=== PATIENT | male | born 1945 | race Caucasian/White ===

== ENCOUNTER 2020-08-11 07:51 | Outpatient (REF) | payer MEDICARE, SELFPAY ==
[2020-08-11 08:50] LABS: Basophils Absolute Auto 0.1 X10*3/uL (0.0-0.2); Eosinophils Absolute Auto 0.5 X10*3/uL (0.0-0.4); Eosinophils Percent Auto 7.6 % (0-4); Hematocrit 46.2 % (42-52); Hemoglobin 15.3 g/dl (14.0-18.0); Imm Gran Abs Auto 0.02 X10*3/uL (0.00-0.03); Imm Gran Pct Auto 0.3 % (0.0-0.4); Lymphocytes Absolute Auto 1.8 X10*3/uL (1.2-4.9); Lymphocytes Percent Auto 26.5 % (20-40); MANUAL DIFF FLAG NO; Mean Corpuscular HGB Conc 33.1 g/dl (31.0-36.0); Mean Corpuscular Hemoglobin 31.5 pg (27.0-33.0); Mean Corpuscular Volume 95.3 fL (80-98); Mean Platelet Volume 8.1 fL (9.4-12.4); Monocytes Absolute Auto 0.5 X10*3/uL (0.1-1.2); Monocytes Percent Auto 7.6 % (2-11); Platelet Count 273 X10*3/uL (160-400); Red Blood Count 4.85 X10*6/uL (4.60-5.80)
[2020-08-11 09:22] LABS: Alanine Aminotransferase 22 U/L (0-40); Albumin Level 3.7 g/dL (3.5-5.0); Alkaline Phosphatase 58 U/L (39-117); Anion Gap 14 (12-20); Aspartate Amino Transferase 22 U/L (5-37); Bilirubin Total 0.6 mg/dL (0.0-1.0); Blood Urea Nitrogen 22 mg/dL (9-16); Calcium 8.7 mg/dL (8.4-10.2); Carbon Dioxide 28 mmol/L (22-29); Chloride 104 mmol/L (96-108); Cholesterol 181 mg/dL; Estimated Glomerular Filt Rate > 60; Glucose Random 95 mg/dL (60-115); HDL Cholesterol 48 mg/dL; LDL Cholesterol Calculated 119 mg/dl; Potassium 4.3 mmol/l (3.3-5.1); Sodium 142 mmol/L (135-145); Total Protein 7.2 g/dL (6.5-8.0); Triglycerides 72 mg/dL
[2020-08-11 09:44] LABS: Free T4 (Free Thyroxine) 1.27 ng/dL (0.71-1.85); T4 Thyroxine 9.3 ug/dL (4.5-12.0); Thyroid Stimulating Hormone 3.36 uIU/mL (0.32-4.0)
[2020-08-11 09:50] LABS: Folate 12.2 ng/mL (> or = 4.0); Vitamin B12 219 pg/mL (200-900)
== END 2020-08-11 07:52 | disposition home or self-care (01) ==
LOC: HO.LAB 07:51
PROVIDERS: Absent Provider Internal Medicine Endocrinology, Diabetes & Metabolism; PCP Internal Medicine; Visit Provider Internal Medicine
DX: I10 Essential (primary) hypertension (principal); E03.9 Hypothyroidism, unspecified; E03.8 Other specified hypothyroidism; Z85.038 Personal history of other malignant neoplasm of large intestine; Z72.0 Tobacco use
CPT/HCPCS: 36415; 80053; 80061; 82607; 82746; 84436; 84439; 84443; 85025

== ENCOUNTER → 2020-08-17 07:36 | Outpatient (BNVA) | payer MEDICARE, SELFPAY | PROVIDERS: PCP Internal Medicine; Visit Provider Internal Medicine Endocrinology, Diabetes & Metabolism | DX: Z76.89 Persons encountering health services in other specified circumstances (principal) | CPT/HCPCS: Q3014 ==

== ENCOUNTER 2020-09-25 07:42 | Emergency (ER) | payer MEDICARE, SELFPAY ==
--- NOTE | ~2020-09-25 | XR_ITS ---
EXAMINATION: XR FOOT, RIGHT CLINICAL INFORMATION: Pain COMPARISON: None TECHNIQUE: AP, lateral, and oblique views of the right foot. FINDINGS: Bone alignment is normal. No fracture or dislocation is seen. There is mild arthritis of the first MTP joint with joint space narrowing. The joint spaces are otherwise normal. There is a small calcaneal spur at the Achilles tendon insertion. XR/XR foot RT min 3V IMPRESSION: Mild degenerative change at the first MTP joint. Small calcaneal spur at the Achilles tendon insertion.
[2020-09-25 08:03] VITALS: BP 186/86; PULSE 68; RESP 18; TEMP 36.7; O2SAT 99; BMI 23.6
--- NOTE | 2020-09-25 08:52 | ED.LOWEXIN ---
HPI - Extremity Injury (Lower) General Chief Complaint: Extremity Injury, Lower Stated Complaint: R BIG TOE INJ Time Seen by Provider: 09/25/20 07:51 Source: patient Mode of arrival: ambulatory Limitations: no limitations History of Present Illness HPI Narrative: 74 yo male dropped a heavy piece of wood on his R great toe complaint: foot injury Onset (ago): day(s) (on ) Injury: Right: toes Type of Injury: blunt Place: home Severity: moderate Relieving factors: nothing Exacerbating factors: movement Context: direct blow (dropped heavy wood on toe) Associated symptoms: swelling Other symptoms: none Related Data Home Medications Medication Instructions Recorded Confirmed cholecalciferol (vitamin D3) 50 mcg PO DAILY 08/05/20 08/19/20 [Vitamin D3] cyclobenzaprine 1 tab PO TID PRN 08/05/20 08/19/20 aspirin 81 mg tablet,delayed 81 mg PO DAILY 08/17/20 08/19/20 release fluticasone propionate 50 1 spray INTRANASAL DAILY 08/17/20 08/19/20 mcg/actuation nasal spray,suspension ibuprofen 200 mg capsule 200 mg PO Q6H PRN 08/19/20 08/19/20 loratadine 10 mg tablet 10 mg PO DAILY 08/19/20 08/19/20 Previous Rx's Medication Instructions Recorded levothyroxine 88 mcg tablet 88 mcg PO DAILY 90 Days #90 tab 08/17/20 cephalexin 500 mg PO BID 5 Days #10 cap 09/25/20 ondansetron 4 mg PO Q8H PRN #20 tab 09/25/20 Allergies Allergy/AdvReac Type Severity Reaction Status Date / Time Penicillins [PENICILLINS] Allergy Mild NAUSEA & Verified 08/10/20 07:04 VOMITING amoxicillin [AMOXICILLIN] Allergy Unknown RASH Unverified 04/22/20 15:07 clindamycin [CLINDAMYCIN] Allergy Unknown RASH Verified 08/10/20 07:04 egg [EGG] Allergy Unknown UNKNOWN Verified 08/10/20 07:04 erythromycin base Allergy Unknown Unknown Verified 08/10/20 07:04 Influenza Virus Vaccines Allergy Unknown Unknown Verified 08/10/20 07:04 moxifloxacin [From Avelox] Allergy Unknown Unknown Verified 08/10/20 07:04 Sulfa (Sulfonamide Allergy Unknown Unknown Verified 08/10/20 07:04 Antibiotics) sulfamethoxazole Allergy Unknown RASH Verified 08/10/20 07:04 [From BACTRIM] trimethoprim [From BACTRIM] Allergy Unknown RASH Verified 08/10/20 07:04 Review of Systems Review of Systems: Constitutional : No Fever, No Chills ENT/Mouth : No Ear Pain, No Hoarseness, No sore throat Eyes: No Eye Pain, No Swelling, No Redness, No Foreign Body Cardiovascular : No Chest Pain, No SOB Respiratory : No Cough, No Dyspnea Gastrointestinal : No Nausea, No Vomiting, No Diarrhea, No abdominal Pain Genitourinary : No Dysuria, No Hematuria Musculoskeletal : positive joint pain, No Myalgias, No Joint Swelling Skin : pos skin lesion, No rash Neuro : No Weakness, No Numbness, No Loss of Consciousness, No Dizziness, No Headache Psych : No Anxiety/Panic, No Depression Heme/Lymph: no easy bruising, no Lymphadenopathy Endocrine : No Polyuria, No Polydipsia All other systems reviewed and are negative [facility]LY [facility] Past Medical History Medical History Allergic rhinitis Ankylosing spondylitis BPH (benign prostatic hyperplasia) Colon cancer Cyst of pancreas Hypercholesterolemia Hypertension Hypothyroidism Liver cyst Tobacco abuse Vitamin D deficiency Surgical History History of colonoscopy Hx of colectomy Hx of hemorrhoidectomy Family History Family History (Updated 08/10/20 @ 07:06 by Ana Sousa Jose Daniel) Mother Gastric cancer Father CVD (cardiovascular disease) Myocardial infarction Paternal Grandfather Myocardial infarction Brother No problems noted. Sister No problems noted. Social History Social History Alcohol intake: never Smoking Status: Current every day smoker Packs Per Day: 0.5 Use of substances other than those prescribed or required for medical reasons: No Advance Directives: No Advance Directives Information Provided: No Physical Exam Vital Signs: Vital Signs: Last Vital Signs Temp 98.1 F 09/25/20 08:03 Pulse 68 09/25/20 08:03 Resp 18 09/25/20 08:03 BP 186/86 H 09/25/20 08:03 Pulse Ox 99 09/25/20 08:03 Body Mass Index 23.6 Appearance: Alert. Oriented X3. No acute distress. Eyes: Pupils equal, round and reactive to light. ENT: Pharynx normal. Neck: Normal inspection. Neck supple. CVS: Normal heart rate and rhythm. Pulses normal. Respiratory: No respiratory distress. Breath sounds normal. Abdomen: Soft and nontender. Skin: Skin warm and dry. Normal skin color. Normal skin turgor. Extremities: No lower extremity edema. No calf ttp R great toe - large tense hemorrhage blister noted under nail as well as proximal nail fold, nail itself is mobile, no lacerations on toe itself noted Neuro: Oriented X 3. No motor deficit. No sensory deficit. Procedures Procedure Narrative Procedure Narrative: R great toe - verbal consent betadine soak done usd 18 G to aspirate tense blister on proximal nail fold - drained 5cc of bloody ss fluid, repeat betadine soak done, nail left on for biologic dressing, bulky sterile dressing applied MDM - Extremity Injury (Lower) MDM Narrative Medical decision making narrative: 74 yo male with crush injury to R great toe - xrays negative for fracture, has very tense blister noted not on AC therapy - nail is avulsed but still attached and is a good biologic dressing at this time will aspirate blister and provide good wound care and instructions as well as start on oral antibiotics to prevent wound infection given his nails and feet are mildly unkempt Discharge Plan Discharge Clinical Impression: Crush injury of toe Qualifiers: Encounter type: initial encounter Laterality: right Qualified Code(s): S97.101A - Crushing injury of unspecified right toe(s), initial encounter Nail avulsion of toe Qualifiers: Encounter type: initial encounter Qualified Code(s): S91.209A - Unspecified open wound of unspecified toe(s) with damage to nail, initial encounter Patient Disposition: Home, Self-Care Instructions: Nail Avulsion (ED), Crush Injury (ED) Additional Instructions: return to ED for any worsening symptoms or concerns keep wound covered and clean, monitor for signs of infection including redness, yellow drainage, fevers, it is okay to shower with the wound but not soak it in a bathtub the nail itself is a biologic dressing and is protecting the nail bed, after it falls off keep area covered until it is healed Prescriptions: New cephalexin 500 mg capsule 500 mg PO BID 5 Days Qty: 10 RF: 0 ondansetron 4 mg tablet,disintegrating 4 mg PO Q8H PRN (Reason: nausea and vomiting) Qty: 20 RF: 0 No Action cyclobenzaprine 5 mg tablet 1 tab PO TID PRN (Reason: pain) RF: 0 cholecalciferol (vitamin D3) [Vitamin D3] 50 mcg (2,000 unit) Tablet 50 mcg PO DAILY RF: 0 loratadine [Allergy Relief (loratadine)] 10 mg tablet 10 mg PO DAILY RF: 0 ibuprofen 200 mg capsule 200 mg PO Q6H PRNRF: 0 fluticasone propionate [Flonase Allergy Relief] 50 mcg/actuation spray,suspension 1 spray intranasal DAILY RF: 0 aspirin [Adult Low Dose Aspirin] 81 mg tablet,delayed release (DR/EC) 81 mg PO DAILY RF: 0 levothyroxine 88 mcg tablet 88 mcg PO DAILY 90 Days Qty: 90 RF: 3
--- NOTE | 2020-09-25 09:19 | PC.NURSE ---
RIGHT GREAT TOE SOAKED IN IODINE AND CLEAN DRY NON STICK DRESSING APPLIED OVER NAIL. PT GIVEN EXTRA DRESSING TO CHANGE AT HOME. PT TOLERATED PROCEDURE WELL.
== END 2020-09-25 09:20 | disposition home or self-care (01) ==
PROVIDERS: Emergency Provider Emergency Medicine; PCP Internal Medicine
DX: S91.201A Unspecified open wound of right great toe with damage to nail, initial encounter (principal); W20.8XXA Other cause of strike by thrown, projected or falling object, initial encounter; Y93.89 Activity, other specified; Y92.019 Unspecified place in single-family (private) house as the place of occurrence of the external cause; Y99.9 Unspecified external cause status
CPT/HCPCS: 11740; 73630; 99283

== ENCOUNTER 2021-02-09 07:42 | Outpatient (REF) | payer MEDICARE, SELFPAY ==
[2021-02-09 08:20] LABS: MANUAL DIFF FLAG NO
[2021-02-09 08:23] LABS: Basophils Absolute Auto 0.1 X10*3/uL (0.0-0.2); Basophils Percent Auto 0.8 % (0-2); Eosinophils Absolute Auto 0.6 X10*3/uL (0.0-0.4); Eosinophils Percent Auto 8.3 % (0-4); Hematocrit 46.5 % (42-52); Hemoglobin 15.7 g/dl (14.0-18.0); Imm Gran Abs Auto 0.02 X10*3/uL (0.00-0.03); Imm Gran Pct Auto 0.3 % (0.0-0.4); Lymphocytes Absolute Auto 2.2 X10*3/uL (1.2-4.9); Lymphocytes Percent Auto 29.8 % (20-40); Mean Corpuscular HGB Conc 33.8 g/dl (31.0-36.0); Mean Corpuscular Hemoglobin 31.8 pg (27.0-33.0); Mean Corpuscular Volume 94.1 fL (80-98); Mean Platelet Volume 8.3 fL (9.4-12.4); Monocytes Absolute Auto 0.6 X10*3/uL (0.1-1.2); Monocytes Percent Auto 7.6 % (2-11); Neutrophils Absolute Auto 3.9 X10*3/uL (2.0-8.3); Neutrophils Percent Auto 53.2 % (45-73); Platelet Count 241 X10*3/uL (160-400); Red Blood Count 4.94 X10*6/uL (4.60-5.80); Red Cell Distribution Width 12.9 % (11.0-16.0); White Blood Count 7.4 X10*3/uL (4.8-10.8)
[2021-02-09 08:51] LABS: Alanine Aminotransferase 19 U/L (0-40); Albumin Level 3.7 g/dL (3.5-5.0); Alkaline Phosphatase 50 U/L (39-117); Anion Gap 8 (12-20); Aspartate Amino Transferase 18 U/L (5-37); Bilirubin Total 0.9 mg/dL (0.0-1.0); Blood Urea Nitrogen 18 mg/dL (9-16); Calcium 9.1 mg/dL (8.4-10.2); Carbon Dioxide 31 mmol/L (22-29); Chloride 106 mmol/L (96-108); Cholesterol 181 mg/dL; Estimated Glomerular Filt Rate > 60; Glucose Random 95 mg/dL (60-115); HDL Cholesterol 46 mg/dL; LDL Cholesterol Calculated 121 mg/dl; Potassium 4.3 mmol/L (3.3-5.1); Sodium 141 mmol/L (135-145); Total Protein 6.7 g/dL (6.5-8.0); Triglycerides 73 mg/dL
[2021-02-09 09:10] LABS: Thyroid Stimulating Hormone 2.61 uIU/mL (0.32-4.0)
[2021-02-09 09:30] LABS: Folate 12.8 ng/mL (> or = 4.0); Vitamin B12 195 pg/mL (200-900)
== END 2021-02-09 07:43 | disposition home or self-care (01) ==
LOC: HO.LAB 07:42
PROVIDERS: PCP Internal Medicine; Visit Provider Internal Medicine
DX: E78.00 Pure hypercholesterolemia, unspecified (principal); E53.8 Deficiency of other specified B group vitamins
CPT/HCPCS: 36415; 80053; 80061; 82607; 82746; 84439; 84443; 85025

== ENCOUNTER 2021-04-23 19:03 | Emergency (ER) | payer MEDICARE, SELFPAY ==
--- NOTE | ~2021-04-23 | CT_ITS ---
EXAMINATION: CT HEAD WITHOUT CONTRAST CLINICAL INFORMATION: Acute dizziness. Imbalance. COMPARISON: Previous head CT April 2011 TECHNIQUE: Contiguous axial imaging was performed from the skull base to vertex without intravenous administration of contrast. This CT examination was performed using dose optimization techniques as appropriate, variously including the following: *Automated exposure control *Adjustment of mA and/or kV according to patient size (this includes techniques or standardized protocols for targeted exams where dose is matched to indication/reason for exam; i.e. extremities or head) *Use of iterative reconstruction technique DLP: 661 mGy-cm FINDINGS: There is no evidence of acute intracranial hemorrhage or territorial infarction. No abnormal mass effect or midline shift is seen. [place] to white matter differentiation is well preserved. No extra-axial fluid collections are identified. The ventricles are normal in size. There is no abnormal attenuation within the brain parenchyma. The osseous structures and soft tissues are normal. The mastoid air cells and middle ears are clear. There are inflammatory changes in the frontal ethmoid and sphenoid sinuses. CT/CT head/brain wo con IMPRESSION: No acute intracranial findings. Mild sinus disease.
[2021-04-23 19:21] VITALS: BP 176/88; PULSE 70; O2SAT 98
[2021-04-23 19:22] VITALS: BP 187/84; PULSE 64; RESP 18; TEMP 37.2; O2SAT 99; BMI 22.2
--- NOTE | 2021-04-23 19:24 | ECG_ITS ---
Test Reason : DIZZY Blood Pressure : / mmHG Vent. Rate : 065 BPM Atrial Rate : 065 BPM P-R Int : 152 ms QRS Dur : 140 ms QT Int : 444 ms P-R-T Axes : 069 104 038 degrees QTc Int : 461 ms Normal sinus rhythm Possible Left atrial enlargement Right bundle branch block Abnormal ECG When compared with ECG of 10-NOV-2010 09:09, No significant change was found Referred By: Generic ED Physician Electronically Signed By:QUINCY CANO
--- NOTE | 2021-04-23 19:41 | ED_ITS ---
HPI - Dizziness General Chief Complaint: Dizziness Stated Complaint: Dizziness Time Seen by Provider: 04/23/21 19:30 Source: patient Limitations: no limitations History of Present Illness HPI Narrative: This is a 75-year-old male who complains of acute onset of feeling dizzy/or balance were carefully probed under things and feels unsteady with blocks, the began around 18:00, with occlusion with the rest cleared but denies it is the mechanism occurrence but less severe cleared with the same symptoms about 10 days ago in the morning but we were not aware of the rongeured more distant years and similar symptoms. He denies any headache. There was any chest pain or shortness of breath. He did have some sense of his heart going fast but states this may have anxiety. He denies any trouble with speech. He denies any numbness or weakness of his face, arms, or legs. He does have a history of hypercholesterolemia Related Data Home Medications Medication Instructions Recorded Confirmed cholecalciferol (vitamin D3) 50 50 mcg PO DAILY 08/05/20 08/19/20 mcg (2,000 unit) tablet (Vitamin D3) aspirin 81 mg tablet,delayed 81 mg PO DAILY 08/17/20 08/19/20 release (Adult Low Dose Aspirin) fluticasone propionate 50 1 spray INTRANASAL DAILY 08/17/20 08/19/20 mcg/actuation nasal spray,suspension (Flonase Allergy Relief) ibuprofen 200 mg capsule 200 mg PO Q6H PRN 08/19/20 08/19/20 loratadine 10 mg tablet (Allergy 10 mg PO DAILY 08/19/20 08/19/20 Relief (loratadine)) Previous Rx's Medication Instructions Recorded levothyroxine 88 mcg tablet 88 mcg PO DAILY 90 Days #90 tab 08/17/20 Allergies Allergy/AdvReac Type Severity Reaction Status Date / Time Penicillins [PENICILLINS] Allergy Mild NAUSEA & Verified 02/16/21 09:18 VOMITING amoxicillin [AMOXICILLIN] Allergy Unknown RASH Verified 02/16/21 09:18 clindamycin [CLINDAMYCIN] Allergy Unknown RASH Verified 02/16/21 09:18 egg [EGG] Allergy Unknown UNKNOWN Verified 02/16/21 09:18 erythromycin base Allergy Unknown Unknown Verified 02/16/21 09:18 Influenza Virus Vaccines Allergy Unknown Unknown Verified 02/16/21 09:18 moxifloxacin [From Avelox] Allergy Unknown Unknown Verified 02/16/21 09:18 Sulfa (Sulfonamide Allergy Unknown Unknown Verified 02/16/21 09:18 Antibiotics) sulfamethoxazole Allergy Unknown RASH Verified 02/16/21 09:18 [From BACTRIM] trimethoprim [From BACTRIM] Allergy Unknown RASH Verified 02/16/21 09:18 Review of Systems Review of Systems: Yes all other systems are reviewed and are negative Constitutional: Constitutional: Reports as per HPI, Denies fever(s) and Reports weakness (General) Eyes: Eyes: Reports as per HPI and Reports no additional eye complaints ENT: Reports system reviewed and no additional complaints, except as document ed, Reports as per HPI, Denies vertigo, Reports dizziness, Denies nasal congestion, Denies nasal discharge, Reports disequilibrium and Denies sore throat Cardiovascular: Cardiovascular: Reports as per HPI, Denies chest pain and Denies dyspnea Respiratory: Respiratory: Reports as per HPI, Denies cough and Denies dyspnea Gastrointestinal: Gastrointestinal: Reports as per HPI, Denies abdominal pain, Denies diarrhea and Denies vomiting Genitourinary: Genitourinary: Reports as per HPI, Denies hematuria, Denies dysuria and Denies urinary frequency Musculoskeletal: Musculoskeletal: Reports no additional musculoskeletal complaints and Denies numbness Integumentary/Breasts: Skin/Breast: Reports as per HPI and Denies rash Neurologic: Reports as per HPI, Denies Abnormal speech present, Denies vertigo, Reports dizziness, Denies focal weakness, Denies numbness, Denies Sensory deficit (Neuro), Reports disequilibrium and Reports weakness (General) Psychiatric: Psychiatric: Reports no additional psychiatric complaints and Reports as per HPI Endocrine: Endocrine: Reports no additional endocrine complaints and Reports as per HPI Hematologic/Lymphatic: Hematologic/Lymphatic: Reports no additional hematologic/lymphatic complaints, Reports as per HPI and Reports other (No peripheral edema) [facility] Past Medical History Medical History Allergic rhinitis Ankylosing spondylitis BPH (benign prostatic hyperplasia) Colon cancer Cyst of pancreas Hypercholesterolemia Hypertension Hypothyroidism Liver cyst Tobacco abuse Vitamin D deficiency Surgical History History of colonoscopy Hx of colectomy Hx of hemorrhoidectomy Family History Family History (Updated 08/10/20 @ 07:06 by Ana D Lars, RMA) Mother Gastric cancer Father CVD (cardiovascular disease) Myocardial infarction Paternal Grandfather Myocardial infarction Brother No problems noted. Sister No problems noted. Social History Social History Housing: House Alcohol intake: never Patient Tobacco Use Status: Current everyday Tobacco user Tobacco use type: Cigarette Cigarette Packs Per Day: 1 e-Cigarette/Vaping Use: Never Used Second Hand Smoke Exposure: Yes Advance Directives: No Advance Directives Information Provided: No service: Yes Current occupational status: retired Physical Exam Vital Signs: Vital Signs: Last Vital Signs Temp 98.9 F 04/23/21 19:22 Pulse 64 04/23/21 19:22 Resp 18 04/23/21 19:22 BP 187/84 H 04/23/21 19:22 Pulse Ox 99 04/23/21 19:22 Body Mass Index 22.2 Const: General: cooperative, no acute distress and alert Or ientation/consciousness: patient oriented x3 HENMT: Head: Yes normal to inspection Eyes: General: appearance normal, both eyes and all related structures Eyelids: Yes eyelids normal Conjunctivae: conjunctivae normal Pupils: Equal, round and reactive pupils present Neck: Neck: Yes normal visual inspection and Yes supple Chest: Chest palpation & inspection: normal inspection of the chest Resp: Effort & Inspection: normal respiratory effort Auscultation: clear to auscultation bilaterally Cardio: Rate: regular rate Rhythm: regular rhythm Heart sounds: S1 normal heart sound present, S2 normal heart sound present, no gallops, no murmurs and no rubs GI: Palpation (GI): Soft to palpation, nontender and Other GI palpation findings present (Non-distended) Auscultation: normal bowel sounds Skin: General skin exam: no rashes or lesions noted Neuro: General: patient oriented x3, no focal motor deficits and CN's II-XI intact bilaterally Cranial nerves: Yes Equal, round and reactive pupils present Cognition (Neuro): normal cognition Speech: No Abnormal speech present Motor exam (neuro): 5/5 motor strength present throughout Sensory Exam: No Sensory deficit (Neuro) Extrem: General: Yes normal to inspection and Yes no pedal edema Psych: Appearance: grossly normal Affect: normal affect MDM - Dizziness MDM Narrative Medical decision making narrative: Upon re-evaluation had approximately 21:00, the patient said he still feels dizzy when he stood up however he was able to ambulate steadily without assistance to the bathroom and back, with no wide gait or evidence of ataxia. Patient subjectively has a feeling of feeling dizzy but has no objective neurologic findings. CT of the brain was negative. CBC and chemistry panel were unremarkable. Aside from dizziness, no other neurologic complaints. Patient can be evaluated further as an outpatient. Lab Data Attestation: I reviewed the patient's lab results. Result diagrams: 04/23/21 20:02 04/23/21 20:02 Labs: Lab Results 04/23/21 04/23/21 Range/Units 20:02 20:02 WBC 7.2 (4.8-10.8) X10*3/uL RBC 4.82 (4.60-5.80) X10*6/uL Hgb 15.2 (14.0-18.0) g/dl Hct 44.9 (42-52) % MCV 93.2 (80-98) fL MCH 31.5 (27.0-33.0) pg MCHC 33.9 (31.0-36.0) g/dl RDW 12.9 (11.0-16.0) % Plt Count 252 (160-400) X10*3/uL MPV 8.1 L (9.4-12.4) fL Immature Gran % (Auto) 0.3 (0.0-0.4) % Neut % (Auto) 70.4 (45-73) % Lymph % (Auto) 16.5 L (20-40) % [place] % (Auto) 7.4 (2-11) % Eos % (Auto) 4.4 H (0-4) % Baso % (Auto) 1.0 (0-2) % Lymph # (Auto) 1.2 (1.2-4.9) X10*3/uL [place] # (Auto) 0.5 (0.1-1.2) X10*3/uL Eos # (Auto) 0.3 (0.0-0.4) X10*3/uL Baso # (Auto) 0.1 (0.0-0.2) X10*3/uL Abs Immat Gran (auto) 0.02 (0.00-0.03) X10*3/uL Absolute Neuts (auto) 5.1 (2.0-8.3) X10*3/uL Absolute Nucleated RBC 0.000 (0.0-0.012) X10*3/uL Nucleated RBC % (auto) 0.0 (0.0-0.2) /100WBC Sodium 139 (135-145) mmol/L Potassium 3.7 (3.3-5.1) mmol/L Chloride 104 (96-108) mmol/L Carbon Dioxide 29 (22-29) mmol/L Anion Gap 10 L (12-20) BUN 20 H (9-16) mg/dL Creatinine 0.92 (0.5-1.4) mg/dL Estim Creat Clear Calc 71.1 Estimated GFR > 60 Random Glucose 118 H (60-115) mg/dL Calcium 8.6 (8.4-10.2) mg/dL Total Bilirubin 0.3 (0.0-1.0) mg/dL AST 19 (5-37) U/L ALT 20 (0-40) U/L Alkaline Phosphatase 59 (39-117) U/L Total Protein 7.0 (6.5-8.0) g/dL Albumin 3.9 (3.5-5.0) g/dL ECG Data Attestation: I personally reviewed and interpreted this ECG as follows: ECG interpretation date: 04/23/21 ECG interpretation time: 19:45 Interpretation: Sinus rhythm with a rate of 65. Right bundle branch block. No acute appearing ST elevation or depression. Discharge Plan Discharge Clinical Impression: Dizziness Patient Disposition: Home, Self-Care Instructions: Dizziness (ED) Additional Instructions: Drink plenty of fluids. Quit tobacco smoking. Follow up with a neurologist or with her primary care physician in the coming week if you are still having symptoms. Return for any worsened symptoms such as trouble speaking, worsened unsteadiness, numbness or weakness on 1 side, facial droop. Prescriptions: No Action cholecalciferol (vitamin D3) [Vitamin D3] 50 mcg (2,000 unit) Tablet 50 mcg PO DAILY RF: 0 loratadine [Allergy Relief (loratadine)] 10 mg tablet 10 mg PO DAILY RF: 0 ibuprofen 200 mg capsule 200 mg PO Q6H PRNRF: 0 fluticasone propionate [Flonase Allergy Relief] 50 mcg/actuation spray,lynne spension 1 spray intranasal DAILY RF: 0 aspirin [Adult Low Dose Aspirin] 81 mg tablet,delayed release (DR/EC) 81 mg PO DAILY RF: 0 levothyroxine 88 mcg tablet 88 mcg PO DAILY 90 Days Qty: 90 RF: 3 Referrals: Hawa Phelps MD [Physician] - 2 days Interventions: ED Discharge Assessment Last Done: 04/23/21 21:35 Discharge Date/Time: 04/23/21 21:35
[2021-04-23] MEDS: LORazepam 0.5 MG TABLET PO (19:56)
[2021-04-23] MEDS: Meclizine HCl 25 MG TABLET PO (19:57)
[2021-04-23 20:06] LABS: MANUAL DIFF FLAG NO
[2021-04-23 20:09] LABS: Basophils Absolute Auto 0.1 X10*3/uL (0.0-0.2); Eosinophils Absolute Auto 0.3 X10*3/uL (0.0-0.4); Eosinophils Percent Auto 4.4 % (0-4); Hematocrit 44.9 % (42-52); Hemoglobin 15.2 g/dl (14.0-18.0); Imm Gran Abs Auto 0.02 X10*3/uL (0.00-0.03); Imm Gran Pct Auto 0.3 % (0.0-0.4); Lymphocytes Absolute Auto 1.2 X10*3/uL (1.2-4.9); Lymphocytes Percent Auto 16.5 % (20-40); Mean Corpuscular HGB Conc 33.9 g/dl (31.0-36.0); Mean Corpuscular Hemoglobin 31.5 pg (27.0-33.0); Mean Corpuscular Volume 93.2 fL (80-98); Mean Platelet Volume 8.1 fL (9.4-12.4); Monocytes Absolute Auto 0.5 X10*3/uL (0.1-1.2); Monocytes Percent Auto 7.4 % (2-11); Neutrophils Absolute Auto 5.1 X10*3/uL (2.0-8.3); Neutrophils Percent Auto 70.4 % (45-73); Platelet Count 252 X10*3/uL (160-400); Red Blood Count 4.82 X10*6/uL (4.60-5.80); Red Cell Distribution Width 12.9 % (11.0-16.0); White Blood Count 7.2 X10*3/uL (4.8-10.8)
[2021-04-23 20:27] LABS: Alanine Aminotransferase 20 U/L (0-40); Albumin Level 3.9 g/dL (3.5-5.0); Alkaline Phosphatase 59 U/L (39-117); Anion Gap 10 (12-20); Aspartate Amino Transferase 19 U/L (5-37); Bilirubin Total 0.3 mg/dL (0.0-1.0); Blood Urea Nitrogen 20 mg/dL (9-16); Calcium 8.6 mg/dL (8.4-10.2); Carbon Dioxide 29 mmol/L (22-29); Chloride 104 mmol/L (96-108); Creatinine Clr Calc Pharmacy 71.1; Estimated Glomerular Filt Rate > 60; Glucose Random 118 mg/dL (60-115); Potassium 3.7 mmol/L (3.3-5.1); Sodium 139 mmol/L (135-145)
== END 2021-04-23 21:35 | disposition home or self-care (01) ==
PROVIDERS: Emergency Provider Emergency Medicine; PCP Internal Medicine
DX: R42 Dizziness and giddiness (principal); F17.210 Nicotine dependence, cigarettes, uncomplicated; Z71.6 Tobacco abuse counseling; Z79.899 Other long term (current) drug therapy
CPT/HCPCS: 36415; 70450; 80053; 85025; 93005; 99283

== ENCOUNTER 2021-05-10 13:15 | Outpatient (REF) | payer MEDICARE, SELFPAY ==
--- NOTE | ~2021-05-10 | MR_ITS ---
EXAMINATION: MRI OF THE BRAIN WITHOUT CONTRAST CLINICAL INFORMATION: Ataxia. COMPARISON: CT scan of the head 04/23/2021. TECHNIQUE: MRI of the brain was obtained using routine sequences without contrast. FINDINGS: No diffusion abnormalities are identified to suggest an acute or subacute infarct. There is no midline shift. There is a tubular lesion in the right internal auditory canal and the porus acusticus which extends into the right cerebellopontine angle. It measures 1.2 x 0.8 axially on the T2 images. There is mild expansion of the right internal auditory canal. There is mild commensurate prominence of the ventricles and sulci consistent with diffuse volume loss. There are scattered areas of increased T2 and FLAIR signal in the periventricular and subcortical white matter, which are most consistent with chronic microvascular ischemic changes. No extra-axial fluid collections are seen. The brainstem and cerebellum are normal. No pathologic magnetic susceptibility artifact is identified on the gradient refocused acquisition. The craniovertebral junction, marrow signal, and midline structures are normal. The major intracranial flow-voids at the level of the [place] are preserved. The dural venous sinus flow-voids are maintained. There is trace fluid at the left mastoid tip. The paranasal sinuses are well-aerated. MR/MR head/brain wo con IMPRESSION: 1. There is a tubular lesion in the right internal auditory canal and porus acusticus extending into the right cerebellopontine angle, most consistent with an acoustic neuroma/schwannoma. Recommend MRI scan of the brain and internal auditory canals without and with contrast for further assessment. 2. There are no acute bleeds or territorial infarcts. There are chronic microvascular ischemic changes and there is diffuse volume loss. 3. This critical result was discussed with Jhon Irene by telephone on 05/16/2021 at 8:57 AM and it was ascertained that the content and urgency of the report was understood at the time of direct communication.
== END 2021-05-10 13:16 | disposition home or self-care (01) ==
LOC: HO.MRI 13:15
PROVIDERS: PCP Internal Medicine; Visit Provider Psychiatry & Neurology Neurology
DX: R27.0 Ataxia, unspecified (principal)
CPT/HCPCS: 70551

== ENCOUNTER 2021-05-19 12:22 | Outpatient (REF) | payer MEDICARE, SELFPAY ==
[2021-05-19 13:14] LABS: Blood Urea Nitrogen 14 mg/dL (9-16); Estimated Glomerular Filt Rate > 60
== END 2021-05-19 12:23 | disposition home or self-care (01) ==
LOC: HO.LAB 12:22
PROVIDERS: PCP Internal Medicine; Visit Provider Psychiatry & Neurology Neurology
DX: R27.0 Ataxia, unspecified (principal); I10 Essential (primary) hypertension
CPT/HCPCS: 36415; 82565; 84520

== ENCOUNTER 2021-06-03 09:16 | Outpatient (REF) | payer MEDICARE, SELFPAY ==
--- NOTE | ~2021-06-03 | MR_ITS ---
EXAMINATION: MR BRAIN WITHOUT AND WITH CONTRAST CLINICAL INFORMATION: Schwannoma. COMPARISON: Brain MRI 05/10/2021, CT scan of the head 04/23/2021. TECHNIQUE: Multiplanar MR imaging of the brain was performed without and with contrast. A total of 7 mL Gadavist was utilized for this examination. FINDINGS: There is a well marginated enhancing ovoid mass extending from the right internal auditory canal beyond the porus acusticus into the right cerebellopontine angle cistern measuring 1.2 cm in maximal transaxial dimension. There is no mass effect on the adjacent middle cerebellar peduncle. No other mass or enhancement is visualized elsewhere within the intracranial compartment. No intracranial mass effect or midline shift. Lateral and third ventricles are normal. No hydrocephalus. Midline structures including the cervicomedullary junction are normal. No acute bone marrow signal changes. A few scattered nonspecific foci of T2 FLAIR signal hyperintensity are visualized within the periventricular white matter. There is no acute territorial infarct. No pathological magnetic susceptibility artifact. Intracranial vascular flow voids are grossly maintained. MR/MR head/brain wo/w con IMPRESSION: There is an ovoid enhancing 1.2 cm mass within the right internal auditory canal that demonstrates imaging characteristics most consistent with a vestibular schwannoma. A few scattered chronic small vessel ischemic changes are visualized within the periventricular white matter. No evidence of acute territorial infarct or hemorrhage.
== END 2021-06-03 09:17 | disposition home or self-care (01) ==
LOC: HO.MRI 09:16
PROVIDERS: Visit Provider Psychiatry & Neurology Neurology
DX: D36.10 Benign neoplasm of peripheral nerves and autonomic nervous system, unspecified (principal)
CPT/HCPCS: 70553; A9585

== ENCOUNTER 2021-06-14 07:36 | Outpatient (REF) | payer MEDICARE, SELFPAY ==
[2021-06-14 07:49] LABS: MANUAL DIFF FLAG NO
[2021-06-14 08:06] LABS: Basophils Absolute Auto 0.1 X10*3/uL (0.0-0.2); Basophils Percent Auto 0.9 % (0-2); Eosinophils Absolute Auto 0.2 X10*3/uL (0.0-0.4); Eosinophils Percent Auto 3.6 % (0-4); Hematocrit 49.3 % (42.0-52.0); Hemoglobin 16.6 g/dl (14.0-18.0); Imm Gran Abs Auto 0.02 X10*3/uL (0.00-0.03); Imm Gran Pct Auto 0.3 % (0.0-0.4); Lymphocytes Absolute Auto 1.8 X10*3/uL (1.2-4.9); Lymphocytes Percent Auto 26.2 % (20-40); Mean Corpuscular HGB Conc 33.7 g/dl (31.0-36.0); Mean Corpuscular Volume 95.2 fL (80.0-98.0); Mean Platelet Volume 8.3 fL (9.4-12.4); Monocytes Absolute Auto 0.5 X10*3/uL (0.1-1.2); Monocytes Percent Auto 8.1 % (2-11); Neutrophils Absolute Auto 4.1 x10*3/uL (2.0-8.3); Neutrophils Percent Auto 60.9 % (45-73); Platelet Count 321 X10*3/uL (160-400); Red Blood Count 5.18 X10*6/uL (4.60-5.80); Red Cell Distribution Width 12.8 % (11.0-16.0); White Blood Count 6.7 X10*3/uL (4.8-10.8)
[2021-06-14 08:52] LABS: Free T4 (Free Thyroxine) 1.49 ng/dL (0.71-1.85); Thyroid Stimulating Hormone 2.87 uIU/mL (0.32-4.0)
[2021-06-14 09:26] LABS: Folate 10.6 ng/mL (> or = 4.0); Vitamin B12 328 pg/mL (200-900)
[2021-06-17 23:46] LABS: Intrinsic Factor Antibodies Negative (Negative)
[2021-06-20 15:11] LABS: Parietal Cell Antibody <=20.0 Unit (<=20.0)
== END 2021-06-14 07:37 | disposition home or self-care (01) ==
LOC: HO.LAB 07:36
PROVIDERS: Absent Provider Internal Medicine; PCP Internal Medicine; Visit Provider Nurse Practitioner Gerontology
DX: E78.00 Pure hypercholesterolemia, unspecified (principal); E06.3 Autoimmune thyroiditis; E53.8 Deficiency of other specified B group vitamins; E03.8 Other specified hypothyroidism; F17.210 Nicotine dependence, cigarettes, uncomplicated; Z79.899 Other long term (current) drug therapy
CPT/HCPCS: 36415; 82607; 82746; 83516; 84439; 84443; 85025; 86340; 99212

== ENCOUNTER 2021-08-19 08:57 | Outpatient (REF) | payer MEDICARE, SELFPAY ==
[2021-08-19 09:21] LABS: MANUAL DIFF FLAG NO
[2021-08-19 09:51] LABS: Basophils Percent Auto 0.6 % (0-2); Eosinophils Absolute Auto 0.3 X10*3/uL (0.0-0.4); Eosinophils Percent Auto 4.3 % (0-4); Hematocrit 46.8 % (42.0-52.0); Hemoglobin 15.5 g/dl (14.0-18.0); Imm Gran Abs Auto 0.02 X10*3/uL (0.00-0.03); Imm Gran Pct Auto 0.3 % (0.0-0.4); Lymphocytes Absolute Auto 2.1 X10*3/uL (1.2-4.9); Lymphocytes Percent Auto 32.9 % (20-40); Mean Corpuscular HGB Conc 33.1 g/dl (31.0-36.0); Mean Corpuscular Hemoglobin 31.5 pg (27.0-33.0); Mean Corpuscular Volume 95.1 fL (80.0-98.0); Mean Platelet Volume 8.3 fL (9.4-12.4); Monocytes Absolute Auto 0.5 X10*3/uL (0.1-1.2); Monocytes Percent Auto 8.1 % (2-11); Neutrophils Absolute Auto 3.4 x10*3/uL (2.0-8.3); Neutrophils Percent Auto 53.8 % (45-73); Platelet Count 252 X10*3/uL (160-400); Red Blood Count 4.92 X10*6/uL (4.60-5.80); Red Cell Distribution Width 12.9 % (11.0-16.0); White Blood Count 6.3 X10*3/uL (4.8-10.8)
[2021-08-19 10:42] LABS: Free T4 (Free Thyroxine) 1.19 ng/dL (0.71-1.85); Thyroid Stimulating Hormone 2.35 uIU/mL (0.32-4.0)
[2021-08-19 10:51] LABS: Alanine Aminotransferase 17 U/L (0-40); Albumin Level 3.6 g/dL (3.5-5.0); Alkaline Phosphatase 50 U/L (39-117); Aspartate Amino Transferase 19 U/L (5-37); Bilirubin Total 0.6 mg/dL (0.0-1.0); Blood Urea Nitrogen 20 mg/dL (9-16); Calcium 9.1 mg/dL (8.4-10.2); Cholesterol 184 mg/dL; Estimated Glomerular Filt Rate > 60; Glucose Random 97 mg/dL (60-115); HDL Cholesterol 46 mg/dL; LDL Cholesterol Calculated 125 mg/dl; Total Protein 6.7 g/dL (6.5-8.0); Triglycerides 66 mg/dL
[2021-08-19 10:59] LABS: Folate 12.9 ng/mL (> or = 4.0); Vitamin B12 351 pg/mL (200-900)
[2021-08-19 11:06] LABS: Anion Gap 12 (12-20); Carbon Dioxide 29 mmol/L (22-29); Chloride 107 mmol/L (96-108); Potassium 4.5 mmol/L (3.3-5.1); Sodium 143 mmol/L (135-145)
== END 2021-08-19 08:58 | disposition home or self-care (01) ==
LOC: HO.LAB 08:57
PROVIDERS: Absent Provider Nurse Practitioner Gerontology; PCP Internal Medicine; Visit Provider Internal Medicine
DX: E78.00 Pure hypercholesterolemia, unspecified (principal)
CPT/HCPCS: 36415; 80053; 80061; 82607; 82746; 84439; 84443; 85025

== ENCOUNTER 2021-11-08 09:22 | Outpatient (REF) | payer MEDICARE, SELFPAY ==
[2021-11-08 09:52] LABS: MANUAL DIFF FLAG NO
[2021-11-08 10:30] LABS: Basophils Absolute Auto 0.1 X10*3/uL (0.0-0.2); Basophils Percent Auto 1.2 % (0-2); Eosinophils Absolute Auto 0.4 X10*3/uL (0.0-0.4); Eosinophils Percent Auto 6.5 % (0-4); Hematocrit 46.1 % (42.0-52.0); Hemoglobin 15.5 g/dl (14.0-18.0); Imm Gran Abs Auto 0.01 X10*3/uL (0.00-0.03); Imm Gran Pct Auto 0.2 % (0.0-0.4); Lymphocytes Absolute Auto 1.9 X10*3/uL (1.2-4.9); Lymphocytes Percent Auto 29.4 % (20-40); Mean Corpuscular HGB Conc 33.6 g/dl (31.0-36.0); Mean Corpuscular Volume 95.1 fL (80.0-98.0); Mean Platelet Volume 8.2 fL (9.4-12.4); Monocytes Absolute Auto 0.5 X10*3/uL (0.1-1.2); Monocytes Percent Auto 8.4 % (2-11); Neutrophils Absolute Auto 3.5 x10*3/uL (2.0-8.3); Neutrophils Percent Auto 54.3 % (45-73); Platelet Count 271 X10*3/uL (160-400); Red Blood Count 4.85 X10*6/uL (4.60-5.80); Red Cell Distribution Width 12.9 % (11.0-16.0); White Blood Count 6.5 X10*3/uL (4.8-10.8)
[2021-11-08 10:59] LABS: Alanine Aminotransferase 21 U/L (0-40); Albumin Level 3.8 g/dL (3.5-5.0); Alkaline Phosphatase 57 U/L (39-117); Anion Gap 10 (12-20); Aspartate Amino Transferase 20 U/L (5-37); Bilirubin Total 0.6 mg/dL (0.0-1.0); Blood Urea Nitrogen 15 mg/dL (9-16); Calcium 9.1 mg/dL (8.4-10.2); Carbon Dioxide 31 mmol/L (22-29); Chloride 105 mmol/L (96-108); Cholesterol 195 mg/dL; Estimated Glomerular Filt Rate > 60; Glucose Random 92 mg/dL (60-115); HDL Cholesterol 52 mg/dL; LDL Cholesterol Calculated 132 mg/dl; Potassium 4.6 mmol/L (3.3-5.1); Sodium 141 mmol/L (135-145); Total Protein 6.7 g/dL (6.5-8.0); Triglycerides 57 mg/dL
[2021-11-08 11:14] LABS: Free T4 (Free Thyroxine) 1.35 ng/dL (0.71-1.85); Thyroid Stimulating Hormone 2.22 uIU/mL (0.32-4.0); Vitamin D 25-OH Total 23.3 ng/mL (>30)
[2021-11-08 11:39] LABS: Folate 9.6 ng/mL (> or = 4.0); Vitamin B12 341 pg/mL (200-900)
[2021-11-13 23:06] LABS: Intrinsic Factor Antibodies Negative (Negative)
[2021-11-15 13:36] LABS: Parietal Cell Antibody <=20.0 Unit (<=20.0)
== END 2021-11-08 09:23 | disposition home or self-care (01) ==
LOC: HO.LAB 09:22
PROVIDERS: PCP Internal Medicine; Visit Provider Internal Medicine
DX: E78.00 Pure hypercholesterolemia, unspecified (principal); E03.8 Other specified hypothyroidism; E06.3 Autoimmune thyroiditis; E53.8 Deficiency of other specified B group vitamins; E55.9 Vitamin D deficiency, unspecified
CPT/HCPCS: 36415; 80053; 80061; 82306; 82607; 82746; 83516; 84439; 84443; 85025; 86340

== ENCOUNTER 2021-12-27 09:25 | Outpatient (REF) | payer MEDICARE, SELFPAY ==
--- NOTE | ~2021-12-27 | MR_ITS ---
EXAMINATION: MR BRAIN WITHOUT AND WITH CONTRAST CLINICAL INFORMATION: 76-year-old undergoing follow up for right-sided vestibular schwannoma. COMPARISON: 06/03/2021 MRI. TECHNIQUE: Multiplanar, multisequence MRI of the brain/IACs was obtained before and after the intravenous administration of 7 mL Gadavist. FINDINGS: Redemonstrated is an avidly enhancing ovoid extra-axial mass lesion centered in the right internal auditory canal and projecting into the adjacent CP angle cistern consistent with a right-sided vestibular schwannoma, which is noted to be T2 hypointense. In the coronal plane maximum dimensions are approximately 1.3 x 0.8 cm which is stable from previous study. In the axial plane the maximum short axis dimension is 0.9 cm which is stable from previous study. There is no associated mass effect on the adjacent brachium pontis. The lateral margin of the lesion does not extend to the fundus. There is no abnormal labyrinthine enhancement. The left IAC demonstrates no mass lesion or abnormal enhancement with a normal appearance to the membranous labyrinth. The left CP angle cistern appears normal. No focal reduced diffusion is seen to suggest acute or subacute cerebral ischemia. No other mass lesions or abnormal enhancement are identified throughout the remainder of the brain. Scattered small punctate foci of FLAIR/T2 signal hyperintensity are seen in the white matter of both cerebral hemispheres without abnormal enhancement similar to the prior exam which are nonspecific findings but likely reflect tiny zones of chronic ischemic microangiopathy. Gradient refocused imaging demonstrates no evidence for hemorrhage, hemosiderin staining or abnormal mineral deposition. The ventricular system and subarachnoid spaces are within normal limits in appearance without hydrocephalus stable in appearance. Signal voids are noted in the visualized major intracranial vessels. There is mucosal thickening in the ethmoid complex progressed from previous exam, now with some retained secretions or mucosal thickening in the sphenoid sinus lateral recess on the right since the previous study and stable minor mucosal thickening in the left frontal sinus. MR/MR head/brain wo/w con IMPRESSION: 1. Stable right-sided vestibular schwannoma. 2. Chronic ischemic microangiopathy in the white matter of both cerebral hemispheres similar to the previous exam. 3. Some progression of paranasal sinus mucosal inflammatory changes in the ethmoid and sphenoid sinus.
== END 2021-12-27 09:26 | disposition home or self-care (01) ==
LOC: HO.MRI 09:25
PROVIDERS: Visit Provider Neurological Surgery
DX: D33.3 Benign neoplasm of cranial nerves (principal); G93.89 Other specified disorders of brain
CPT/HCPCS: 70553; A9585

== ENCOUNTER 2022-05-03 07:58 | Outpatient (REF) | payer MEDICARE, SELFPAY ==
[2022-05-03 08:27] LABS: MANUAL DIFF FLAG NO
[2022-05-03 09:08] LABS: Basophils Absolute Auto 0.1 X10*3/uL (0.0-0.2); Basophils Percent Auto 1.2 % (0-2); Eosinophils Absolute Auto 0.5 X10*3/uL (0.0-0.4); Eosinophils Percent Auto 7.4 % (0-4); Hemoglobin 15.5 g/dl (14.0-18.0); Imm Gran Abs Auto 0.02 X10*3/uL (0.00-0.03); Imm Gran Pct Auto 0.3 % (0.0-0.4); Lymphocytes Absolute Auto 1.7 X10*3/uL (1.2-4.9); Lymphocytes Percent Auto 25.2 % (20-40); Mean Corpuscular HGB Conc 33.7 g/dl (31.0-36.0); Mean Corpuscular Hemoglobin 31.3 pg (27.0-33.0); Mean Corpuscular Volume 92.9 fL (80.0-98.0); Mean Platelet Volume 8.4 fL (9.4-12.4); Monocytes Absolute Auto 0.6 X10*3/uL (0.1-1.2); Monocytes Percent Auto 8.8 % (2-11); Neutrophils Absolute Auto 3.8 x10*3/uL (2.0-8.3); Neutrophils Percent Auto 57.1 % (45-73); Platelet Count 275 X10*3/uL (160-400); Red Blood Count 4.95 X10*6/uL (4.60-5.80); Red Cell Distribution Width 13.3 % (11.0-16.0); White Blood Count 6.6 X10*3/uL (4.8-10.8)
[2022-05-03 09:46] LABS: Alanine Aminotransferase 15 U/L (0-40); Albumin Level 3.8 g/dL (3.5-5.0); Alkaline Phosphatase 53 U/L (39-117); Anion Gap 16 (12-20); Aspartate Amino Transferase 17 U/L (5-37); Bilirubin Total 0.7 mg/dL (0.0-1.0); Blood Urea Nitrogen 15 mg/dL (9-16); Calcium 8.8 mg/dL (8.4-10.2); Carbon Dioxide 26 mmol/L (22-29); Chloride 104 mmol/L (96-108); Cholesterol 180 mg/dL; Estimated Glomerular Filt Rate > 60; Glucose Random 88 mg/dL (60-115); HDL Cholesterol 51 mg/dL; LDL Cholesterol Calculated 119 mg/dl; Potassium 4.2 mmol/L (3.3-5.1); Sodium 142 mmol/L (135-145); Total Protein 6.7 g/dL (6.5-8.0); Triglycerides 51 mg/dL
[2022-05-03 10:02] LABS: Free T4 (Free Thyroxine) 1.43 ng/dL (0.71-1.85); Vitamin D 25-OH Total 23.2 ng/mL (>30)
[2022-05-03 10:22] LABS: Folate 4.4 ng/mL (> or = 4.0); Vitamin B12 310 pg/mL (200-900)
== END 2022-05-03 07:59 | disposition home or self-care (01) ==
LOC: HO.LAB 07:58
PROVIDERS: PCP Internal Medicine; Visit Provider Internal Medicine
DX: C18.9 Malignant neoplasm of colon, unspecified (principal); E78.00 Pure hypercholesterolemia, unspecified
CPT/HCPCS: 36415; 80053; 80061; 82306; 82378; 82607; 82746; 84439; 84443; 85025

== ENCOUNTER 2022-11-14 08:57 | Outpatient (REF) | payer MEDICARE, SELFPAY ==
[2022-11-14 09:05] LABS: MANUAL DIFF FLAG NO
[2022-11-14 09:24] LABS: Basophils Absolute Auto 0.1 X10*3/uL (0.0-0.2); Basophils Percent Auto 1.1 % (0-2); Eosinophils Absolute Auto 0.5 X10*3/uL (0.0-0.4); Eosinophils Percent Auto 6.2 % (0-4); Hematocrit 47.1 % (42.0-52.0); Hemoglobin 15.8 g/dl (14.0-18.0); Imm Gran Abs Auto 0.03 X10*3/uL (0.00-0.03); Imm Gran Pct Auto 0.4 % (0.0-0.4); Lymphocytes Absolute Auto 2.1 X10*3/uL (1.2-4.9); Lymphocytes Percent Auto 26.9 % (20-40); Mean Corpuscular HGB Conc 33.5 g/dl (31.0-36.0); Mean Corpuscular Hemoglobin 31.8 pg (27.0-33.0); Mean Corpuscular Volume 94.8 fL (80.0-98.0); Mean Platelet Volume 8.3 fL (9.4-12.4); Monocytes Absolute Auto 0.6 X10*3/uL (0.1-1.2); Monocytes Percent Auto 7.2 % (2-11); Neutrophils Absolute Auto 4.4 x10*3/uL (2.0-8.3); Neutrophils Percent Auto 58.2 % (45-73); Platelet Count 247 X10*3/uL (160-400); Red Blood Count 4.97 X10*6/uL (4.60-5.80); Red Cell Distribution Width 13.2 % (11.0-16.0); White Blood Count 7.6 X10*3/uL (4.8-10.8)
[2022-11-14 10:01] LABS: Alanine Aminotransferase 19 U/L (0-40); Albumin Level 3.8 g/dL (3.5-5.0); Alkaline Phosphatase 47 U/L (39-117); Anion Gap 8 (12-20); Aspartate Amino Transferase 18 U/L (5-37); Bilirubin Total 0.7 mg/dL (0.0-1.0); Blood Urea Nitrogen 18 mg/dL (9-16); Calcium 9.1 mg/dL (8.4-10.2); Carbon Dioxide 32 mmol/L (22-29); Chloride 106 mmol/L (96-108); Estimated Glomerular Filt Rate > 60; Glucose Random 94 mg/dL (60-115); Magnesium 2.3 mg/dL (1.6-2.6); Potassium 4.2 mmol/L (3.3-5.1); Sodium 142 mmol/L (135-145); Total Protein 6.6 g/dL (6.5-8.0); Uric Acid 5.4 mg/dL (3.4-7.0)
[2022-11-14 10:38] LABS: Free T4 (Free Thyroxine) 1.39 ng/dL (0.71-1.85); Vitamin B12 403 pg/mL (200-900)
== END 2022-11-14 08:58 | disposition home or self-care (01) ==
LOC: HO.LAB 08:57
PROVIDERS: PCP Internal Medicine; Visit Provider Internal Medicine
DX: C18.9 Malignant neoplasm of colon, unspecified (principal); E03.9 Hypothyroidism, unspecified
CPT/HCPCS: 36415; 80053; 82378; 82607; 82746; 83735; 84439; 84443; 84550; 85025

== ENCOUNTER 2022-11-23 08:31 | Emergency (ER) | payer MEDICARE, SELFPAY ==
--- NOTE | 2022-11-23 | ECG_ITS ---
Test Reason : flutters Blood Pressure : / mmHG Vent. Rate : 066 BPM Atrial Rate : 066 BPM P-R Int : 154 ms QRS Dur : 140 ms QT Int : 440 ms P-R-T Axes : 066 092 046 degrees QTc Int : 461 ms Normal sinus rhythm Right bundle branch block Abnormal ECG When compared with ECG of 23-APR-2021 19:09, T wave inversion no longer evident in Anterior leads Referred By: Grant Griffin Electronically Signed By:ANGEL OCONNELL
[2022-11-23 08:37] VITALS: BP 141/89; PULSE 80; O2SAT 98
[2022-11-23 08:41] VITALS: BP 138/68; PULSE 67; RESP 14; TEMP 36.8; O2SAT 97; BMI 22.8
--- OUTSIDE RECORDS SUMMARY | 2022-11-23 08:58 | XMS_ITS | Continuity of Care Document ---
Author Name Unknown Organization [facility] Address [address] [place] [address], [address] [place] [address]- Care Team Providers Care Lens Fabricating Machine Tender Name Role Phone Teto GALLEGOS, Asma Primary Care Physician [phone] Encounter [facility] Date(s): 06/06/21 - 07/06/21 [facility] [address] [place] [address], [address] [place], [place] [address]
--- OUTSIDE RECORDS SUMMARY | 2022-11-23 08:58 | XMS_ITS | Continuity of Care Document ---
Author Name Unknown Organization [facility] Address [address] [place] [address], [address] [place] [address]- Care Team Providers Care Kitchen Helper Name Role Phone Teto GALLEGOS, [facility] Primary [facility]ician [phone] Encounter [facility] [place] Date(s): 01/10/22 - 01/17/22 [facility] [address] [place] [address], [address] [place], [place] [address] Attending Physician: Stephon Davis MD Allergies, Adverse Reactions, Alerts Substance Reaction Severity Status clindamycin Active amoxicillin Active Avelox Active Immunizations Given and Recorded Vaccine Date Status Refusal Reason SARS-CoV-2 (COVID-19) mRNA BNT-162b2 vac 11/04/20 Given SARS-CoV-2 (COVID-19) mRNA BNT-162b2 vac 10/14/20 Given Medications aspirin 81 mg oral capsule 4 capsule = 324 mg, By Mouth, Every 4 hours, 0 Refills, Maintenance, 07/12/21 10:05:00 EST, Partialfill upon patient request if the prescription is for a schedule II opioid drug. Start Date: 07/12/21 Status: Ordered B-12 0 Refills, Maintenance, 07/12/21 10:05:00 EST, Partial fill upon patient request if the prescription is for a schedule II opioid drug. Start Date: 07/12/21 Status: Ordered Flonase Daily, 0 Refills, Maintenance, 07/12/21 10:04:00 EST, Partial fill upon patient request if the prescription is for a schedule II opioid drug. Start Date: 07/12/21 Status: Ordered levothyroxine 0.088 mg oral tablet 1 tablet = 88 mcg, By Mouth, Daily, 0 Refills, Maintenance, 07/12/21 10:04:00 EST, Partial fill upon patient request if the prescription is for a schedule II opioid drug. Start Date: 07/12/21 Status: Ordered Vitamin D3 400 intl units oral capsule 1 capsule = 10 mcg, By Mouth, Daily, 0 Refills, Maintenance, 07/12/21 10:05:00 EST, Partial fill upon patient request if the prescription is for a schedule II opioid drug. Start Date: 07/12/21 Status: Ordered Vital Signs Most recent to oldest [Reference Range]: 1 Height 173.6 cm (01/10/22 11:28 AM) Weight 67 kg (01/10/22 11:28 AM) Body Mass Index [18.5-24.99] 22.23 (01/10/22 11:28 AM)
--- OUTSIDE RECORDS SUMMARY | 2022-11-23 08:58 | XMS_ITS | Continuity of Care Document ---
Author Name Unknown Organization [facility] Address [address] [place] [address], [address] [place] [address]- Care Team Providers Care Undercutter Operator Name Role Phone Teto GALLEGOS, Candido Primary Care Physician [phone] Encounter [facility] [place] Date(s): 07/12/21 - 07/19/21 [facility] [address] [place] [address] Drive, [address] [place] [address]- Attending Physician: Stephon Davis MD Referring Physician: Candido Irene MD Allergies, Adverse Reactions, Alerts Substance Reaction Severity Status clindamycin Active amoxicillin Active Avelox Active Medications aspirin 81 mg oral capsule 4 [...] recent to oldest [Reference Range]: 1 Height 175 cm (07/12/21 9:59 AM) Weight 68.2 kg (07/12/21 9:59 AM) Body Mass Index [18.5-24.99] 22.27 (07/12/21 9:59 AM)
--- OUTSIDE RECORDS SUMMARY | 2022-11-23 08:58 | XMS_ITS | Continuity of Care Document ---
Author Name Unknown Organization [facility] Address [address] [place] [address], [address] [place] [address]- Care Team Providers Care Commercial Real Estate Agent Name Role Phone Teto GALLEGOS, Candido Primary Care Physician [phone] Encounter [facility] Date(s): 06/27/21 - 07/04/21 [facility] [address] [place] [address], [address] [place], [place] [address] Attending Physician: Darrius Carlson MD Referring Physician: Candido Irene MD
--- OUTSIDE RECORDS SUMMARY | 2022-11-23 08:58 | XMS_ITS | Continuity of Care Document ---
Author Name Unknown Organization [facility] Address [address] [place] [address]- Care Team Providers Care Director Life Sciences Name Role Phone Teto GALLEGOS, Asma Primary Care Physician Encounter [facility] [place] Date(s): 07/12/21 - 08/11/21 [facility] [address] [place] [id number] Attending Physician: Julian Alfredo Admitting Physician: AdmtrJulian Referring Physician: Admtr, Ar8 Allergies, Adverse Reactions, Alerts Substance Reaction Severity [...]
--- OUTSIDE RECORDS SUMMARY | 2022-11-23 08:58 | XMS_ITS | Continuity of Care Document ---
Author Name Unknown Organization [facility] Address [address] [place] [address]- Care Team Providers Care Building Official Name Role Phone Teto GALLEGOS, [facility] Encounter [facility] [place] [facility] Date(s): 07/12/21 - 05/19/22 [facility] Care [address] [place] [id number] Discharge Disposition: A-D/C Home Attending Physician: Mamadou Barber MD Admitting Physician: Mamadou Barber MD Referring Physician: Stephon Davis MD Allergies, Adverse Reactions, [...] Most recent to oldest [Reference Range]: 1 2 Height 173.6 cm (02/01/22 2:52 PM) 173.6 cm (08/01/21 10:15 AM) Weight 69.1 kg (02/01/22 2:52 PM) 67.6 kg (08/01/21 10:15 AM) Oxygen Saturation [94-100 %] 98 % (08/01/21 10:15 AM) Pulse Rate [55-90 bpm] 63 bpm (02/01/22 2:52 PM) 58 bpm (08/01/21 10:15 AM) Body Mass Index [18.5-24.99] 22.93 (02/01/22 2:52 PM) 22.43 (08/01/21 10:15 AM) Blood Pressure [90-138/55-84 mm Hg] 153/ 75mm Hg *H* (02/01/22 2:52 PM) 157/75mm Hg *H* (08/01/21 10:15 AM) Temperature [96.8-100.4 DegF] 98.0 DegF (02/01/22 2:52 PM) 96.9 DegF (08/01/21 10:15 AM) Mode of Delivery (Oxygen) Room air (08/01/21 10:15 AM) Blood pressure sites Arm, right (02/01/22 2:52 PM) Arm, left (08/01/21 10:15 AM) Temperature Route Oral (02/01/22 2:52 PM) Temporal (08/01/21 10:15 AM) Dry Weight 69.1 kg (02/01/22 2:52 PM) 67.6 kg (08/01/21 10:15 AM) Weight Obtained Via Standing scale (02/01/22 2:52 PM) Standing scale (08/01/21 10:15 AM) Dry Weight Obtained Via Standing scale (02/01/22 2:52 PM) Standing scale (08/01/21 10:15 AM) Patient Care team information Personnel Name: Teto GALLEGOS, Candido Address: Address: [address] [place], [place] [address]
--- OUTSIDE RECORDS SUMMARY | 2022-11-23 08:58 | XMS_ITS | Continuity of Care Document ---
Author Name Unknown Organization [facility] Address [address] [place] [address], [address] [place] [address]- Care Team Providers Care Supervisor Inspection Room Name Role Phone Teto GALLEGOS, Asma Primary Care Physician En[place] [facility] [place] Date(s[place] 07/12/21 - 08/11/21 [facility] [address] [place] [address] Drive, [address] [place], [place] [address] Attending Physician: AdmJulian andujar Admitting Physician: Admtr, Ar8 Referring Physician: Admtr, Ar8 Allergies, Adverse Reactions, [...]
--- NOTE | 2022-11-23 09:18 | ED_ITS ---
HPI - Chest Pain General Chief Complaint: Chest Pain Stated Complaint: FEELS FLUTTER IN CHEST, LAST NOC,ASA/NITRO GIVEN Time Seen by Provider: 11/23/22 09:00 Source: patient Mode of arrival: EMS Limitations: no limitations History of Present Illness HPI narrative: 77-year-old male with history of thyroid dysfunction presents with a vibration sense in his chest. Symptoms that started 1:00 a.m. in the morning. They last approximately 30 seconds and then went away. He had no chest pain, short of breath, lightheadedness, swelling legs or other concerning symptoms. When he woke this morning he felt well. He put his finger on a pulse oximeter and noted some erratic readings. He decided to call 911. At the time that 911 was called, she was asymptomatic. They provided him with aspirin 3 and 24 mg and nitroglycerin. As he was asymptomatic, this change nothing. Patient does report family history of cardiac disease. Related Data Home Medications Medication Instructions Recorded Confirmed cholecalciferol (vitamin D3) 50 50 mcg PO DAILY 08/05/20 09/21/22 mcg (2,000 unit) tablet (Vitamin D3) aspirin 81 mg tablet,delayed 81 mg PO DAILY 08/17/20 09/21/22 release (Adult Low Dose Aspirin) fluticasone propionate 50 1 spray intranasal DAILY 08/17/20 09/21/22 mcg/actuation nasal spray,suspension (Flonase Allergy Relief) cetirizine 10 mg tablet (Zyrtec) 10 mg PO DAILY PRN Allergic 08/17/21 09/21/22 Symptoms Previous Rx's Medication Instructions Recorded levothyroxine 88 mcg tablet 88 mcg PO DAILY 90 days #90 tabs 08/15/22 Allergies Allergy/AdvReac Type Severity Reaction Status Date / Time Penicillins [PENICILLINS] Allergy Mild NAUSEA & Verified 05/11/22 08:22 VOMITING amoxicillin [AMOXICILLIN] Allergy Unknown RASH Verified 05/11/22 08:22 clindamycin [CLINDAMYCIN] Allergy Unknown RASH Verified 05/11/22 08:22 egg [EGG] Allergy Unknown UNKNOWN Verified 05/11/22 08:22 erythromycin base Allergy Unknown Unknown Verified 05/11/22 08:22 Influenza Virus Vaccines Allergy Unknown Unknown Verified 05/11/22 08:22 moxifloxacin [From Avelox] Allergy Unknown Unknown Verified 10/06/22 08:22 Sulfa (Sulfonamide Allergy Unknown Unknown Verified 05/11/22 08:22 Antibiotics) sulfamethoxazole Allergy Unknown RASH Verified 05/11/22 08:22 [From BACTRIM] trimethoprim [From BACTRIM] Allergy Unknown RASH Verified 05/11/22 08:22 doxycycline AdvReac Intermediate nausea, Verified 05/11/22 08:22 diarrhea PMFSH Past Medical History Medical History Allergic rhinitis Ankylosing spondylitis BPH (benign prostatic hyperplasia) Colon cancer Cyst of pancreas Hypercholesterolemia Hypertension Hypothyroidism Liver cyst Tobacco abuse Vitamin D deficiency Surgical History History of colonoscopy History of right cataract surgery Hx of colectomy Hx of hemorrhoidectomy Family History Family History Mother Gastric cancer Father CVD (cardiovascular disease) Myocardial infarction Paternal Grandfather Myocardial infarction Brother No problems noted. Sister No problems noted. Social History Social History Household Members: Spouse Housing: House Alcohol intake: never Patient Tobacco Use Status: Current everyday Tobacco user Tobacco use type: Cigarette Cigarette Packs Per Day: 1 Cigarettes Per Day: 18 Years Smoked: 60 e-Cigarette/Vaping Use: Never Used Second Hand Smoke Exposure: Yes Substance Use Type: Former Substance User and Marijuana Advance Directives: Yes Advance Directives Information Provided: No Advance Directives on File: No service: Yes Current occupational status: retired Cognitive needs: No Hearing needs: No Vision needs: Yes (Glasses) Physical Exam Vital Signs: Vital Signs: Last Vital Signs Temp 98.3 F 11/23/22 08:41 Pulse 67 11/23/22 08:41 Resp 14 11/23/22 08:41 BP 138/68 11/23/22 08:41 Pulse Ox 97 11/23/22 08:41 O2 Del Method Room Air 11/23/22 08:41 BMI result Body Mass Index 22.8 GEN: Well developed, no acute distress, alert, oriented HEENT: Normocephalic, atraumatic, normal external ears, nose appears normal, no oropharyngeal edema or exudates Eyes: Normal to appearance Neck: Supple, no lymphadenopathy Respiratory: Talks in complete sentences, no respiratory distress, clear to auscultation bilaterally Cardiovascular: Regular rate and rhythm, no murmurs rubs or gallops Abdomen: Soft, nontender, nondistended, no guarding, no rebound Back: No CVA tenderness Extremities: No clubbing cyanosis or edema Neurologic: No focal neurologic deficits, cranial nerves 2-12 intact, strength is 5/5 bilaterally Skin: No rash Course Course Course Narrative: 77-year-old male presents with what sounds like palpitations. No chest pain, shortness of breath or lightheadedness. This occurred for 30 seconds at 1:00 a.m. this morning and not since. On my evaluation, he is in no acute distress. EKG shows no evidence of cardiac dysrhythmia. There is a right bundle-branch block. Will check laboratory results including thyroid panel. Patient will likely be able to be discharged with cardiology follow-up. Also, patient will be placed on a steward/stewardess third class. Will review for any cardiac dysrhythmia while he is here. Reevaluation(s) Reevaluation #1: Patient remains asymptomatic, discussed all results. Patient will follow up with Cardiology. Patient is aware of reasons call 911 or return to the emergency department. Time: 11:06 Medical Decision Making Medical Decision Making [facility] Narrative: 77-year-old male with thyroid dysfunction presents with palpitations. Symptoms occurred for 30 seconds at 1:00 a.m. this morning. Currently is asymptomatic. His examination is benign. Cardiac exam revealed regular rate rhythm. EKG shows a regular sinus rhythm with a right bundle-branch block. Patient has a differential diagnosis that could include SVT, AFib, a flutter, cardiac dysrhythmia, VFib, V-tach. Will check laboratory results to rule out electrolyte abnormality, thyroid dysfunction, anemia as other possible differentials. Differential Diagnosis Differential Diagnoses: The differential diagnosis associated with the presentation includes (Arrhythmia, atrial fibrillation, atrial flutter, SVT, Pac, PVC, VFib, V-tach anemia, electrolyte abnormality, thyroid dysfunction) Palpitations Admission/Observation Consideration of admission/observation: Escalation of care including admission/observation considered Lab Data [facility] Lab Attestation statement: I reviewed the patient's lab results. 11/23/22 09:36 11/23/22 09:36 Labs: Lab Results 04/20/23 04/20/23 04/20/23 Range/Units 09:36 09:36 09:36 WBC 7.7 (4.8-10.8) X10*3/uL RBC 5.00 (4.60-5.80) X10*6/uL Hgb 15.5 (14.0-18.0) g/dl Hct 47.0 (42.0-52.0) % MCV 94.0 (80.0-98.0) fL MCH 31.0 (27.0-33.0) pg MCHC 33.0 (31.0-36.0) g/dl RDW 13.2 (11.0-16.0) % Plt Count 243 (160-400) X10*3/uL MPV 8.1 L (9.4-12.4) fL Immature Gran % (Auto) 0.3 (0.0-0.4) % Neut % (Auto) 78.0 H (45-73) % Lymph % (Auto) 11.6 L (20-40) % [place] % (Auto) 7.4 (2-11) % Eos % (Auto) 1.8 (0-4) % Baso % (Auto) 0.9 (0-2) % Lymph # (Auto) 0.9 L (1.2-4.9) X10*3/uL [place] # (Auto) 0.6 (0.1-1.2) X10*3/uL Eos # (Auto) 0.1 (0.0-0.4) X10*3/uL Baso # (Auto) 0.1 (0.0-0.2) X10*3/uL Abs Immat Gran (auto) 0.02 (0.00-0.03) X10*3/uL Absolute Neuts (auto) 6.0 (2.0-8.3) x10*3/uL Absolute Nucleated RBC 0.000 (0.0-0.012) X10*3/uL Nucleated RBC % (auto) 0.0 (0.0-0.2) /100WBC Sodium 143 (135-145) mmol/L Potassium 4.6 (3.3-5.1) mmol/L Chloride 107 (96-108) mmol/L Carbon Dioxide 30 H (22-29) mmol/L Anion Gap 11 L (12-20) BUN 20 H (9-16) mg/dL Creatinine 0.89 (0.5-1.4) mg/dL Estim Creat Clear Calc 71.3 Estimated GFR > 60 Random Glucose 100 (60-115) mg/dL Calcium 8.9 (8.4-10.2) mg/dL Troponin I High Sens 3.0 (<3.5-35.0) ng/L TSH 2.50 (0.32-4.0) uIU/mL Independent Interpretation I performed an independent interpretation of an: EKG (Normal sinus rhythm heart rate 66, right bundle branch block, no acute ST elevations or depressions) and Rhythm Strip (Telemetry monitoring, no atrial fibrillation or significant cardiac dysrhythmia) Independent Historian Clinical information obtained from an independent historian. History obtained from or confirmed by: EMS Tests considered The following testing was considered but not selected: Chest x-ray, echocardiogram Discharge Plan Discharge Clinical Impression: Palpitations Patient Disposition: Home, Self-Care Instructions: Heart Palpitations (ED) Prescriptions: No Action levothyroxine 88 mcg tablet 88 mcg PO DAILY 90 Days Qty: 90 3RF cholecalciferol (vitamin D3) [Vitamin D3] 50 mcg (2,000 unit) Tablet 50 mcg PO DAILY cetirizine [Zyrtec] 10 mg tablet 10 mg PO DAILY PRN (Reason: Allergic Symptoms) fluticasone propionate [Flonase Allergy Relief] 50 mcg/actuation spray,suspension 1 spray intranasal DAILY Rx Instructions: administer into each nostril aspirin [Adult Low Dose Aspirin] 81 mg tablet,delayed release (DR/EC) 81 mg PO DAILY Referrals: Abran Landa MD [Physician] - 5 days
[2022-11-23 09:39] LABS: MANUAL DIFF FLAG NO
[2022-11-23 09:41] LABS: Basophils Absolute Auto 0.1 X10*3/uL (0.0-0.2); Basophils Percent Auto 0.9 % (0-2); Eosinophils Absolute Auto 0.1 X10*3/uL (0.0-0.4); Eosinophils Percent Auto 1.8 % (0-4); Hemoglobin 15.5 g/dl (14.0-18.0); Imm Gran Abs Auto 0.02 X10*3/uL (0.00-0.03); Imm Gran Pct Auto 0.3 % (0.0-0.4); Lymphocytes Absolute Auto 0.9 X10*3/uL (1.2-4.9); Lymphocytes Percent Auto 11.6 % (20-40); Mean Platelet Volume 8.1 fL (9.4-12.4); Monocytes Absolute Auto 0.6 X10*3/uL (0.1-1.2); Monocytes Percent Auto 7.4 % (2-11); Platelet Count 243 X10*3/uL (160-400); Red Cell Distribution Width 13.2 % (11.0-16.0); White Blood Count 7.7 X10*3/uL (4.8-10.8)
[2022-11-23 10:01] LABS: Anion Gap 11 (12-20); Blood Urea Nitrogen 20 mg/dL (9-16); Calcium 8.9 mg/dL (8.4-10.2); Carbon Dioxide 30 mmol/L (22-29); Chloride 107 mmol/L (96-108); Creatinine Clr Calc Pharmacy 71.3; Estimated Glomerular Filt Rate > 60; Glucose Random 100 mg/dL (60-115); Potassium 4.6 mmol/L (3.3-5.1); Sodium 143 mmol/L (135-145)
== END 2022-11-23 19:50 | disposition home or self-care (01) ==
PROVIDERS: Emergency Provider Emergency Medicine; PCP Internal Medicine
DX: R00.2 Palpitations (principal); I45.10 Unspecified right bundle-branch block; E07.9 Disorder of thyroid, unspecified; I10 Essential (primary) hypertension; E78.00 Pure hypercholesterolemia, unspecified; F17.210 Nicotine dependence, cigarettes, uncomplicated; Z79.82 Long term (current) use of aspirin; Z79.899 Other long term (current) drug therapy
CPT/HCPCS: 36415; 80048; 84443; 84484; 85025; 93005; 99283; 99284

== ENCOUNTER → 2022-12-05 12:46 | Outpatient (REF) | payer MEDICARE, SELFPAY ==
--- NOTE | 2022-12-05 12:49 | HM_ITS ---
Conclusion: 1. Patient was monitored for total period of 6 days and 16 hours 2. Baseline was normal sinus rhythm with average heart of 56 beats per minute 3. Frequent sinus bradycardia with heart rate below 60 beats per minute 63% of the time, no significant pauses 4. Rare ectopy noted 5. No patient reported events MTDD
--- NOTE | 2022-12-05 12:49 | CA_ITS ---
Transthoracic Echocardiogram Patient (Last, First, Middle): Adrián Corbett J Gender: Male Date of : 1945 Age: 77 Procedure Date: 12/05/2022 Procedure Type: Transthoracic Echocardiogram Location: OP Height: 177.8 cm Weight: 68.04 kg BSA: 1.85 m2 Heart Rate: 55 bpm BP: 140 / 80 mmHg Dairy Bacteriologist: AUTMUN Referring MD: Abran Landa MD Assembling Motor Builder: Abran Landa MD Symptoms: R00.2 - Palpitations Study Quality: Adequate ECG Rhythm: Sinus Conclusions: - 1. Normal LV systolic function with impaired relaxation filling pattern 2. Normal cardiac valvular Dopplers 3. No gross pericardial effusion Findings Left Ventricle Normal left ventricular size, thickness, and systolic function. The visually estimated ejection fraction is between 60-65%. Spectral Doppler is indicative of an impaired relaxation filling pattern. E/E prime ratio is between 8 and 15 consistent with indeterminate filling pressures. Peak GLS is -16.4%, which is mildly reduced. Right Ventricle Normal right ventricular cavity size and systolic function. Atria Both atria are normal in size. There is lipomatous hypertrophy of the interatrial septum. There is no evidence of interatrial shunt. Aortic Valve Normal aortic valve structure and function. There is no aortic valve stenosis. There is no aortic valve regurgitation. Mitral Valve Normal mitral valve structure and function. There is trace mitral valve regurgitation. There is no mitral valve stenosis. Pulmonic Valve The pulmonic valve was not well visualized. Tricuspid Valve Likely normal tricuspid valve structure and function. Tricuspid regurgitation envelope is inadequate for calculation of right ventricular systolic pressure. Normal right atrial pressure. Great Vessels All visible segments of the aorta are normal in size. The pulmonary artery was not well visualized. Venous The inferior vena cava is normal in size and collapses greater than 50% with inspiration. Pericardium/Pleural There is no evidence of pericardial effusion. Prior Study Comparison No prior study available for comparison. Measurements 2D Linear Measurements IVSd: 0.88 0.6-0.9/0.6-1.0 cm LVIDd: 4.75 3.9-5.3/4.2-5.9 cm LVIDd Index: 2.57 2.4-3.2/2.2-3.1 cm/m2 LVIDs: 3.15 2.0-3.6 cm LVPWd: 0.78 0.7-1.1 cm LA Diam: 2.50 2.7-3.8/3.0-4.0 cm LAIDs Index: 1.35 1.5-2.3 cm/m2 LV Mass: 162.32 67-162/88-224 g LV Mass Index: 87.74 43-95/49-115 g/m2 LVOT Diam: 2.00 3.0+(-)1.3 cm 2D Systolic Function EF 4C: 62.40 >55% EF 2C: 64.50 >55% EF BiP: 62.50 >55% Mitral Valve MV Pk E: 0.55 MV PK A: 0.56 MV Decel Time: 379.00 E/A: 1.00 E'Lateral: 8.49 E'Medial: 6.96 E/E' Med: 7.90 E/E' Lat: 6.50 PHT: 111.00 MVA PHT: 1.98 Decel [place]: 1.46 Aortic Valve AoV Pk Albert: 1.34 AoV Mn Albert: 0.91 AoV VTI: 0.31 AoV Pk Grad: 7.00 Aov Mn Grad: 4.00 LISA Cont.VTI: 2.00 LVOT LVOT Pk Albert: 0.86 LVOT Mn Albert: 0.52 LVOT VTI: 0.20 LVOT Pk Grad: 3.00 LVOT Mn Grad: 1.00 LVOT Diam: 2.00 LVOT Area: 3.14 Diastolic Function MV Pk E: 0.55 MV Pk A: 0.56 E/A: 1.00 E'Medial: 6.96 E/E' Med: 7.90 E' Laterial: 8.49 E/E' Lat: 6.50 Right Ventricle TAPSE (mm): 26.10 TVS' Albert: 13.10 Tricuspid Valve RA Press: 3.00 Great Vessels Aorta Sinus of Valsalva: 3.43 2.0-3.[address] [place]: 2.71 1.7-3.4 cm Ao Asc: 3.50 2.1-3.4 cm Updated in Other Vendor System with Status of Final Abran Landa MD electronically signed on 12/06/2022 3:41:18 PM with status of Final
== END ==
LOC: HO.CARD 12:46
PROVIDERS: PCP Internal Medicine; Visit Provider Internal Medicine Cardiovascular Disease
DX: R00.2 Palpitations (principal)
CPT/HCPCS: 93242; 93306; 93356

== ENCOUNTER 2023-01-11 08:01 | Outpatient (REF) | payer MEDICARE, SELFPAY ==
--- NOTE | ~2023-01-11 | MR_ITS ---
EXAMINATION: MR BRAIN WITHOUT AND WITH CONTRAST CLINICAL INFORMATION: Benign neoplasm of cranial nerves. COMPARISON: Brain MRI December 27, 2021. TECHNIQUE: Multiplanar, multisequence imaging of the brain was performed before and after the intravenous administration of 7 mL of Gadavist. FINDINGS: There is redemonstration of a homogeneously enhancing mass within the right internal auditory canal extending into the cerebellopontine angle cistern maximally measuring up to 1.3 cm which appears stable compared with December 27, 2021. There is no compression of the middle cerebellar peduncle. The inner ear structures otherwise appear normal and symmetric. There is no acute infarction, hemorrhage, parenchymal mass, or extra-axial fluid collection. The ventricles are normal in size without hydrocephalus. Mild nonspecific foci of T2/FLAIR hyperintensity are seen in the cerebral white matter and janki, typical of chronic microangiopathy. The extracranial structures are within normal limits. MR/MR head/brain wo/w con IMPRESSION: Stable appearance of the 1.3 cm right-sided vestibular schwannoma. No acute intracranial abnormality.
== END 2023-01-11 08:02 | disposition home or self-care (01) ==
LOC: HO.MRI 08:01
PROVIDERS: PCP Internal Medicine; Visit Provider Specialist
DX: D33.3 Benign neoplasm of cranial nerves (principal)
CPT/HCPCS: 70553; A9585

== ENCOUNTER 2023-07-18 08:11 | Outpatient (REF) | payer MEDICARE, SELFPAY ==
[2023-07-18 08:35] LABS: MANUAL DIFF FLAG NO
[2023-07-18 09:09] LABS: Basophils Absolute Auto 0.1 X10*3/uL (0.0-0.2); Basophils Percent Auto 0.9 % (0-2); Eosinophils Absolute Auto 0.4 X10*3/uL (0.0-0.4); Eosinophils Percent Auto 5.3 % (0-4); Hematocrit 46.4 % (42.0-52.0); Hemoglobin 15.6 g/dl (14.0-18.0); Lymphocytes Percent Auto 28.9 % (20-40); Mean Corpuscular HGB Conc 33.6 g/dl (31.0-36.0); Mean Corpuscular Hemoglobin 31.8 pg (27.0-33.0); Mean Corpuscular Volume 94.5 fL (80.0-98.0); Mean Platelet Volume 8.4 fL (9.4-12.4); Monocytes Absolute Auto 0.6 X10*3/uL (0.1-1.2); Monocytes Percent Auto 8.2 % (2-11); Neutrophils Absolute Auto 3.9 x10*3/uL (2.0-8.3); Neutrophils Percent Auto 56.7 % (45-73); Platelet Count 244 X10*3/uL (160-400); Red Blood Count 4.91 X10*6/uL (4.60-5.80); Red Cell Distribution Width 12.9 % (11.0-16.0); White Blood Count 6.8 X10*3/uL (4.8-10.8)
[2023-07-18 09:53] LABS: Alanine Aminotransferase 15 U/L (0-40); Albumin Level 3.8 g/dL (3.5-5.0); Alkaline Phosphatase 48 U/L (39-117); Anion Gap 10 (12-20); Aspartate Amino Transferase 16 U/L (5-37); Bilirubin Total 0.6 mg/dL (0.0-1.0); Blood Urea Nitrogen 17 mg/dL (9-16); Calcium 9.1 mg/dL (8.4-10.2); Carbon Dioxide 31 mmol/L (22-29); Chloride 106 mmol/L (96-108); Cholesterol 174 mg/dL (<200); Estimated Glomerular Filt Rate > 60; Glucose Random 99 mg/dL (60-115); HDL Cholesterol 49 mg/dL (>40); LDL Cholesterol Calculated 112 mg/dL (<100); Potassium 3.9 mmol/L (3.3-5.1); Sodium 143 mmol/L (135-145); Triglycerides 66 mg/dL (<150)
[2023-07-18 10:16] LABS: Folate 7.3 ng/mL (> or = 4.0); Vitamin B12 399 pg/mL (200-900)
[2023-07-18 10:18] LABS: Free T4 (Free Thyroxine) 1.25 ng/dL (0.71-1.85); Thyroid Stimulating Hormone 3.19 uIU/mL (0.32-4.0)
== END 2023-07-18 08:12 | disposition home or self-care (01) ==
LOC: HO.LAB 08:11
PROVIDERS: PCP Internal Medicine; Visit Provider Internal Medicine
DX: E78.00 Pure hypercholesterolemia, unspecified (principal)
CPT/HCPCS: 36415; 80053; 80061; 82607; 82746; 84439; 84443; 85025

== ENCOUNTER 2023-07-20 09:11 | Outpatient (AMB) | payer MEDICARE, SELFPAY ==
[2023-07-20 09:12] VITALS: BP 152/80; PULSE 60; BMI 21.8
--- NOTE | 2023-07-20 09:12 | MHC.PC.OV ---
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: No Accompanied by: Self / Same As Patient Allergies Penicillins [PENICILLINS] Allergy (Mild, Verified 07/20/23 09:13) NAUSEA & VOMITING amoxicillin [AMOXICILLIN] Allergy (Unknown, Verified 07/20/23 09:13) RASH clindamycin [CLINDAMYCIN] Allergy (Unknown, Verified 07/20/23 09:13) RASH egg [EGG] Allergy (Unknown, Verified 07/20/23 09:13) UNKNOWN erythromycin base Allergy (Unknown, Verified 07/20/23 09:13) Unknown Influenza Virus Vaccines Allergy (Unknown, Verified 07/20/23 09:13) Unknown moxifloxacin [From Avelox] Allergy (Unknown, Verified 07/20/23 09:13) Unknown Sulfa (Sulfonamide Antibiotics) Allergy (Unknown, Verified 07/20/23 09:13) Unknown sulfamethoxazole [From BACTRIM] Allergy (Unknown, Verified 07/20/23 09:13) RASH trimethoprim [From BACTRIM] Allergy (Unknown, Verified 07/20/23 09:13) RASH doxycycline Adverse Reaction (Intermediate, Verified 07/20/23 09:13) nausea, diarrhea Tobacco use date assessed: 07/20/23 Fall risk assessment: No Falls in past year Last assessed Fall Risk: 07/20/23 Dental Screening Dental Screen Date: 07/20/23 Did you have a dental visit in the last 12 months?: No Did you have a dental problem in the last 6 months where you did not have access to dental care?: No Was dental information given to patient?: No (Dentures) HPI thyroid HPI Details 77-year-old male smoker with a history of hypothyroidism hypercholesterolemia history of colon cancer(December 2010 with surgical resection) and acoustic neuroma of the vestibular nerves (MRI January 2023Stable appearance of the 1.3 cm right-sided vestibular schwannoma. No acute intracranial abnormality.) coming in for follow-up. Last seen in May 2022. January 2019 was the last colonoscopy. Patient did follow-up with the nurse practitioner in January 2023 for an annual well visit. Echocardiogram done December 2022Normal LV systolic function with impaired relaxation filling pattern 2. Normal cardiac valvular Dopplers 3. No gross pericardial effusion Holter Decemberatient was monitored for total period of 6 days and 16 hours 2. Baseline was normal sinus rhythm with average heart of 56 beats per minute 3. Frequent sinus bradycardia with heart rate below 60 beats per minute 63% of the time, no significant pauses 4. Rare ectopy noted 5. No patient reported events Patient had an ER visit for palpitations November 2022. Patient did see orthopedics also for the flexor tenosynovitis of the right index finger opted for injections. FORMERLY [facility], [facility]–1983 Medical History (Updated 07/20/23 @ 09:49 by Addison Wilburn MD) Screening for prostate cancer COVID-19 virus infection Tobacco abuse Hypercholesterolemia Vitamin D deficiency Hypertension BPH (benign prostatic hyperplasia) Hypothyroidism Liver cyst Cyst of pancreas Ankylosing spondylitis Allergic rhinitis Colon cancer Surgical History History of right cataract surgery History of colonoscopy Hx of colectomy Hx of hemorrhoidectomy Family History Mother Gastric cancer Father CVD (cardiovascular disease) Myocardial infarction Paternal Grandfather Myocardial infarction Brother No problems noted. Sister No problems noted. Social History Household Members: Spouse Housing: House Alcohol intake: never Patient Tobacco Use Status: Current everyday Tobacco user Tobacco use type: Cigarette Cigarette Packs Per Day: 1 Cigarettes Per Day: 18 Years Smoked: 60 e-Cigarette/Vaping Use: Never Used Second Hand Smoke Exposure: Yes Substance Use Type: Former Substance User and Marijuana service: Yes Current occupational status: retired Cognitive needs: No Hearing needs: No Vision needs: Yes (Glasses) Questionnaire Thrive Questionnaire Date Thrive assessed: 01/16/23 ZAIRE-7 AMB Questionnaire ZAIRE-7 Date ZAIRE - 7 assessed: 01/16/23 Source: Developed by Drs. Miller Wheat, Summer Osei, Blayne Rios and colleagues, with an educational geraldo from [employer]. Physical exam (Primary Care) Vital Signs: Last Vital Signs Pulse 60 07/20/23 09:12 BP 152/80 H 07/20/23 09:12 BMI result Body Mass Index 21.8 Tobacco/Smoking Status: Tobacco use Status Tobacco use date assessed 07/20/23 07/20/23 09:14 Patient Tobacco Use Status Current everyday Tobacco 07/20/23 09:14 Tobacco use type Cigarette 07/20/23 09:14 e-Cigarette/Vaping Use Never Used 07/20/23 09:14 Thrive Assessment: Date of Thrive Assessment Date Thrive assessed 01/16/23 07/20/23 09:14 Const General: alert; No acute distress Eyes Conjunctivae: conjunctivae normal Resp Auscultation: clear to auscultation bilaterally Cardio Rate: regular rate Rhythm: regular rhythm GI Inspection: Yes normal to inspection Extrem General: Yes normal to inspection and No edema Assessment and Plan Assessment & Plan (1) Colon cancer: Comment: Colonoscopy January 2019 3 years Code(s): C18.9 - Malignant neoplasm of colon, unspecified Qualifiers: Colon location: unspecified part of colon Qualified Code(s): C18.9 - Malignant neoplasm of colon, unspecified Plan: Patient is reminded about seeing the Gastroenterology (2) Hypothyroidism: Code(s): E03.9 - Hypothyroidism, unspecified Qualifiers: Hypothyroidism type: 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 Qualified Code(s): E03.8 - Other specified hypothyroidism; E06.3 - Autoimmune thyroiditis Plan: Continue with thyroid medication (3) Hypercholesterolemia: Code(s): E78.00 - Pure hypercholesterolemia, unspecified Plan: Avoid fried foods, chicken skin, eggs, butter margarine, pastries and meat. Be it pork or beef they have a lot of cholesterol LDL goal of less than 130 and triglyceride of less than 150 (4) Tobacco abuse: Code(s): Z72.0 - Tobacco use Plan: Patient is strongly advised to stop! 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
== END 2023-07-20 10:04 | disposition home or self-care (01) ==
PROVIDERS: PCP Internal Medicine; Visit Provider Internal Medicine
DX: C18.9 Malignant neoplasm of colon, unspecified (principal); D33.3 Benign neoplasm of cranial nerves; E03.8 Other specified hypothyroidism; E06.3 Autoimmune thyroiditis; E78.00 Pure hypercholesterolemia, unspecified; Z72.0 Tobacco use
CPT/HCPCS: 99214

== ENCOUNTER 2024-01-17 09:46 | Outpatient (REF) | payer MEDICARE, SELFPAY ==
[2024-01-17 10:09] LABS: MANUAL DIFF FLAG NO
[2024-01-17 11:03] LABS: Basophils Absolute Auto 0.1 X10*3/uL (0.0-0.2); Basophils Percent Auto 0.8 % (0-2); Eosinophils Absolute Auto 0.2 X10*3/uL (0.0-0.4); Hematocrit 46.1 % (42.0-52.0); Hemoglobin 15.3 g/dl (14.0-18.0); Imm Gran Abs Auto 0.03 X10*3/uL (0.00-0.03); Imm Gran Pct Auto 0.5 % (0.0-0.4); Lymphocytes Absolute Auto 1.8 X10*3/uL (1.2-4.9); Lymphocytes Percent Auto 27.5 % (20-40); Mean Corpuscular HGB Conc 33.2 g/dl (31.0-36.0); Mean Corpuscular Hemoglobin 31.7 pg (27.0-33.0); Mean Corpuscular Volume 95.6 fL (80.0-98.0); Mean Platelet Volume 8.3 fL (9.4-12.4); Monocytes Absolute Auto 0.6 X10*3/uL (0.1-1.2); Monocytes Percent Auto 8.5 % (2-11); Neutrophils Absolute Auto 3.9 x10*3/uL (2.0-8.3); Neutrophils Percent Auto 59.7 % (45-73); Platelet Count 258 X10*3/uL (160-400); Red Blood Count 4.82 X10*6/uL (4.60-5.80); Red Cell Distribution Width 13.2 % (11.0-16.0); White Blood Count 6.6 X10*3/uL (4.8-10.8)
[2024-01-17 11:30] LABS: Alanine Aminotransferase 19 U/L (0-40); Albumin Level 3.7 g/dL (3.5-5.0); Alkaline Phosphatase 50 U/L (39-117); Anion Gap 11 (12-20); Aspartate Amino Transferase 18 U/L (5-37); Bilirubin Total 0.5 mg/dL (0.0-1.0); Blood Urea Nitrogen 20 mg/dL (9-16); Calcium 8.9 mg/dL (8.4-10.2); Carbon Dioxide 29 mmol/L (22-29); Chloride 105 mmol/L (96-108); Cholesterol 163 mg/dL (<200); Estimated Glomerular Filt Rate > 60; Glucose Random 93 mg/dL (60-115); HDL Cholesterol 49 mg/dL (>40); LDL Cholesterol Calculated 106 mg/dL (<100); Potassium 4.3 mmol/L (3.3-5.1); Sodium 141 mmol/L (135-145); Total Protein 6.9 g/dL (6.5-8.0); Triglycerides 44 mg/dL (<150)
[2024-01-17 11:47] LABS: Free T4 (Free Thyroxine) 1.24 ng/dL (0.71-1.85); Thyroid Stimulating Hormone 1.88 uIU/mL (0.32-4.0)
[2024-01-17 11:58] LABS: Folate 11.5 ng/mL (> or = 4.0); Prostate Specific Antigen Scr 1.85 ng/mL (<0.05-4.0); Vitamin B12 404 pg/mL (200-900)
== END 2024-01-17 09:47 | disposition home or self-care (01) ==
LOC: HO.LAB 09:46
PROVIDERS: PCP Internal Medicine; Visit Provider Internal Medicine
DX: E03.8 Other specified hypothyroidism (principal); E06.3 Autoimmune thyroiditis; E78.00 Pure hypercholesterolemia, unspecified; Z12.5 Encounter for screening for malignant neoplasm of prostate
CPT/HCPCS: 36415; 80053; 80061; 82607; 82746; 84153; 84439; 84443; 85025

== ENCOUNTER 2024-01-18 13:29 | Outpatient (AMB) | payer MEDICARE, SELFPAY ==
[2024-01-18 13:34] VITALS: BP 138/79; PULSE 62; O2SAT 98; BMI 21.6
--- NOTE | 2024-01-18 13:34 | AM.OFFVISMDC ---
Intake Vital Signs 01/18/24 13:34 Height 5 ft 9 in Weight 146 lb BMI 21.6 BP 138/79 Blood Pressure Location Rt brachial Position Sitting Pulse 62 Pulse Source Pulse Oximeter Pulse Oximetry (%) 98 Oxygen Delivery Method Room Air Intake Visit Reasons: AWV Intake Note: Patient is here for an Annual Wellness Visit. Training And Documentation Specialist Required: No Allergies Penicillins [PENICILLINS] Allergy (Mild, Verified 01/18/24 13:34) NAUSEA & VOMITING amoxicillin [AMOXICILLIN] Allergy (Unknown, Verified 01/18/24 13:34) RASH clindamycin [CLINDAMYCIN] Allergy (Unknown, Verified 01/18/24 13:34) RASH egg [EGG] Allergy (Unknown, Verified 01/18/24 13:34) UNKNOWN erythromycin base Allergy (Unknown, Verified 01/18/24 13:34) Unknown Influenza Virus Vaccines Allergy (Unknown, Verified 01/18/24 13:34) Unknown moxifloxacin [From Avelox] Allergy (Unknown, Verified 01/18/24 13:34) Unknown Sulfa (Sulfonamide Antibiotics) Allergy (Unknown, Verified 01/18/24 13:34) Unknown sulfamethoxazole [From BACTRIM] Allergy (Unknown, Verified 01/18/24 13:34) RASH trimethoprim [From BACTRIM] Allergy (Unknown, Verified 01/18/24 13:34) RASH doxycycline Adverse Reaction (Intermediate, Verified 01/18/24 13:34) nausea, diarrhea Medication List - Last Reconciled 01/18/24 by Addison Wilburn MD aspirin (Adult Low Dose Aspirin) 81 mg PO DAILY cholecalciferol (vitamin D3) (Vitamin D3) 50 mcg PO DAILY fluticasone propionate 50 mcg/actuation (Flonase Allergy Relief) 1 spray intranasal DAILY levothyroxine 88 mcg PO DAILY 90 days loratadine (Claritin) 10 mg PO DAILY HPI AWV HPI Details 78-year-old male smoker with a history of hypothyroidism hypercholesterolemia with a history of colon cancer and acoustic neuroma of both vestibular nerves coming in for annual well visit. Last seen in 07/25/2023. Patient is due for colonoscopy decline and also lung cancer screening declined [facility] Medical History (Updated 12/04/23 @ 14:59 by Addison Wilburn MD) Screening for prostate cancer COVID-19 virus infection Tobacco abuse Hypercholesterolemia Vitamin D deficiency Hypertension BPH (benign prostatic hyperplasia) Hypothyroidism Liver cyst Cyst of pancreas Ankylosing spondylitis Allergic rhinitis Colon cancer Surgical History History of right cataract surgery History of colonoscopy Hx of colectomy Hx of hemorrhoidectomy Family History Mother Gastric cancer Father CVD (cardiovascular disease) Myocardial infarction Paternal Grandfather Myocardial infarction Brother No problems noted. Sister No problems noted. Social History (Updated 01/18/24 @ 14:06 by Addison Wilburn MD) Household Members: Spouse Housing: House Alcohol intake: never Comment: wine 2 x a year Patient Tobacco Use Status: Current everyday Tobacco user Tobacco use type: Cigarette Cigarette Packs Per Day: 1 Cigarettes Per Day: 18 Years Smoked: 60 e-Cigarette/Vaping Use: Never Used Second Hand Smoke Exposure: Yes Substance Use Type: Former Substance User and Marijuana service: Yes Current occupational status: retired Cognitive needs: No Hearing needs: No Vision needs: Yes (Glasses) Questionnaire Medicare Wellness Checkup [age] 65-71 What gender do you identify with?: male During the past 4 weeks, how much have you been bothered by emotional problems such as feeling anxious, depressed, irritable, sad or downhearted, and blue?: not at all During the past 4 weeks, has your physical & emotional health limited your social activities with family, friends, neighbors, or groups?: not at all During the past 4 weeks, how much bodily pain have you generally had?: very mild pain During the past 4 weeks, was someone available to help you if you needed & wanted help?: yes, as much as I wanted During the past 4 weeks, what was the hardest physical activity you could do for at least 2 minutes?: heavy Can you get to places out of walking distance without help? (For eg., can you travel alone on buses, taxis or drive your car?): Yes Can you go shopping for groceries or clothes without someone's help?: Yes Can you prepare your own meals?: Yes Can you do your housework without help?: Yes Because of any health problems, do you need the help of another person with your personal care needs such as eating, bathing, dressing or getting around the house?: No Can you handle your own money without help?: Yes During the past 4 weeks, how would you rate your health in general?: very good During the past 4 weeks how have things been going for you?: pretty well Are you having difficulties driving your car?: no Do you always fasten your seat belt when you are in a car?: yes, usually During past 4 weeks, have you been bothered by the following: never: Falling or dizzy when standing up, Sexual problems?, Trouble eating well?, Teeth or denture problems?, Problems using the telephone? and Tiredness or fatigue? Have you fallen 2 or more times in the past year?: No Are you afraid of falling?: No Are you a smoker?: yes, but I'm not ready to quit During the past 4 weeks, how many drinks of wine, beer, or other alcoholic beverages did you have?: no alcohol at all Do you exercise for about 20 minutes 3 or more times a week?: yes, most of the time Have you been given information to help with the following?: no: Hazards in your house that might hurt you? and no: Keeping track of your medications? How often do you have trouble taking medicines the way you have been told to take them?: I always take medicine as prescribed How confident are you that you can control & manage most of your health problems?: very confident What is your race?: White PHQ-9 Over the last 2 weeks, how often have you been bothered by any of the following problems? 1. Little interest or pleasure in doing things: not at all 2. Feeling down, depressed, or hopeless: not at all 3. Trouble falling or staying asleep, or sleeping too much: not at all 4. Feeling tired or having little energy: several days 5. Poor appetite or overeating: not at all 6. Feeling bad about yourself - or that you are a failure or have let yourself or your family down: not at all 7. Trouble concentrating on things, such as reading the newspaper or watching television: not at all 8. Moving or speaking so slowly that other people could have noticed. Or the opposite - being so fidgety or restless that you have been moving around a lot more than usual: not at all 9. Thoughts that you would be better off or of hurting yourself in some way: not at all Total score: 1 Depression Screening Interpretation: Negative Depression Screening Done: Yes 71574 - PHQ-9 Billing: Yes Source: Developed by Drs. Miller Wheat, Summer Osei, Blayne Rios and colleagues, with an educational geraldo from [employer]. Review of Systems Const Denies poor appetite and Denies weakness Eyes Denies no additional complaints ENT Reports Normal hearing present, Denies dizziness, Denies nasal congestion, Denies tinnitus and Denies sore throat Card Denies chest pain, Denies syncope, Denies rapid heart rate and Denies dyspnea Resp Denies cough and Denies dyspnea GI Denies change in stool character, Reports constipation, Denies diarrhea, Denies nausea and Denies vomiting Denies dysuria and Denies urinary frequency Neuro Reports Normal hearing present, Denies confusion, Denies dizziness, Denies syncope and Denies weakness Psych Denies confusion Physical Exam Vital Signs: Last Vital Signs Pulse 62 01/18/24 13:34 BP 138/79 01/18/24 13:34 Pulse Ox 98 01/18/24 13:34 Oxygen Delivery Method Room Air 01/18/24 13:34 BMI result Body Mass Index 21.6 Const General: No confusion Orientation/consciousness: No confusion HEENT Head: Yes normocephalic Ears: external ears normal and TM's normal bilaterally Face and sinus: Yes normal facial exam Mouth: moist mucous membranes Throat: Yes tonsils normal Eyes Conjunctivae: conjunctivae normal Pupils: Equal, round and reactive pupils present and Pupil accommodation reflex normal Direct Ophthalmoscopy: normal light reflex Neck Neck: No lymphadenopathy Thyroid: Thyroid normal Chest Chest palpation & inspection: normal inspection of the chest Resp Effort & Inspection: normal respiratory effort and no audible wheezes Auscultation: clear to auscultation bilaterally, no crackles, no wheezes and lung sounds not diminished Cardio Rate: regular rate Rhythm: regular rhythm Peripheral pulses: radial pulses present and dorsalis pedis present GI Other: declined Palpation (GI): no masses Auscultation: normal bowel sounds and normoactive bowel sounds Rectal Exam - Male: Yes deferred Male General Exam: Yes normal external exam Skin General skin exam: no rashes or lesions noted Rashes: no rashes Neuro General: No confusion Cranial nerves: Yes Equal, round and reactive pupils present and Yes Normal hearing present Cognition (Neuro): normal cognition Gait exam (Neuro): Normal gait present Motor exam (neuro): 5/5 motor strength present throughout Deep tendon reflexes (DTR's): Right brachioradialis reflex intensity grade: 2+, Left brachioradialis reflex intensity grade: 2+, Right patellar reflex intensity grade: 2+ and Left patellar reflex intensity grade: 2+ Extrem General: No edema Assessment & Plan Assessment & Plan (1) Medicare annual wellness visit, subsequent: Code(s): Z00.00 - Encounter for general adult medical examination without abnormal findings Plan: Patient is advised to eat healthy, keep well hydrated, keep active and have adequate sleep. (2) Colon cancer: Comment: Colonoscopy January 2019 3 years Code(s): C18.9 - Malignant neoplasm of colon, unspecified Qualifiers: Colon location: unspecified part of colon Qualified Code(s): C18.9 - Malignant neoplasm of colon, unspecified Plan: Patient is reminded about colonoscopy but declined (3) Tobacco abuse: Code(s): Z72.0 - Tobacco use Plan: Patient is strongly advised to stop smoking! (4) Hypothyroidism: Code(s): E03.9 - Hypothyroidism, unspecified Qualifiers: Hypothyroidism type: 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 Qualified Code(s): E03.8 - Other specified hypothyroidism; E06.3 - Autoimmune thyroiditis Plan: Continue with thyroid medication (5) Hypercholesterolemia: Code(s): E78.00 - Pure hypercholesterolemia, unspecified Plan: Avoid fried foods, chicken skin, eggs, butter margarine, pastries and meat. Be it pork or beef they have a lot of cholesterol LDL goal of less than 130 and triglyceride of less than 150 diet controlled (6) Acoustic neuroma of both vestibular nerves: Comment: May 2021 6 months, December 2021 1.3 x 1 by 0.8 MRI December 2022 stable Code(s): D33.3 - Benign neoplasm of cranial nerves Plan: Continue to be monitored (7) Generalized anxiety disorder: Comment: Declined referral for counseling August 2021 Code(s): F41.1 - Generalized anxiety disorder Plan: Stable Orders: Orders Thyroid Stimulating Hormone 6 Months E78.00 - Pure hypercholesterolemia, unspecified Prostate Specific Antigen Scr 6 Months E78.00 - Pure hypercholesterolemia, unspecified Complete Blood Count Auto Diff 6 Months E78.00 - Pure hypercholesterolemia, unspecified Comprehensive Met. Panel 6 Months E78.00 - Pure hypercholesterolemia, unspecified Free T4 (Free Thyroxine) 6 Months E78.00 - Pure hypercholesterolemia, unspecified Vitamin B12 and Folate 6 Months E78.00 - Pure hypercholesterolemia, unspecified Lipid Panel 6 Months E78.00 - Pure hypercholesterolemia, unspecified Medications: New fluticasone propionate 50 mcg/actuation (Flonase Allergy Relief) administer into each nostril 1 spray intranasal DAILY 16 grams 3RF Quality Reporting (2019) Depression/Bipolar (159/160/161/177) PHQ-9: Total score: 1 Coding Level of Care Code Medicare Subsequent (G0439) Diagnoses Medicare annual wellness visit, subsequent Z00.00 Malignant neoplasm of colon, unspecified part of colon C18.9 Colon location: unspecified part of colon Tobacco abuse Z72.0 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
== END 2024-01-18 14:26 | disposition home or self-care (01) ==
PROVIDERS: PCP Internal Medicine; Visit Provider Internal Medicine
DX: Z00.00 Encounter for general adult medical examination without abnormal findings (principal); C18.9 Malignant neoplasm of colon, unspecified; Z72.0 Tobacco use; E03.8 Other specified hypothyroidism; E06.3 Autoimmune thyroiditis; E78.00 Pure hypercholesterolemia, unspecified; D33.3 Benign neoplasm of cranial nerves; F41.1 Generalized anxiety disorder
CPT/HCPCS: G0439

== ENCOUNTER 2024-03-21 08:11 | Outpatient (REF) | payer MEDICARE, SELFPAY ==
--- NOTE | ~2024-03-21 | MR_ITS ---
EXAMINATION: MR BRAIN WITHOUT AND WITH CONTRAST CLINICAL INFORMATION: Vestibular schwannoma COMPARISON: MRI brain January 11, 2023 TECHNIQUE: Multiplanar, multisequence imaging was obtained without and with intravenous contrast. Intravenous contrast: 7 mL Gadavist. FINDINGS: Stable enhancing right sided intracanalicular lesion extending through and expanding the right porus acusticus and projecting into the right CPA cistern most suggestive of a vestibular schwannoma. No mass effect along the brainstem. The left cranial nerve VII/VIII complex is normal. The inner ear structures are normal. No acute infarct. No acute intracranial hemorrhage or extra-axial fluid collection. Mild global cerebral volume loss. Patchy T2 hyperintense foci in the subcortical and periventricular white matter, nonspecific but presumably mild chronic microangiopathy. No abnormal intraparenchymal or leptomeningeal enhancement. No mass effect or herniation pattern. Normal appearance of the midline structures. Normal intracranial arterial and dural venous sinus flow voids. Lens replacements. Mild patchy paranasal sinus mucosal disease with small proteinaceous retention cysts in the right maxillary sinus. No mastoid effusion. The craniocervical junction is intact. Normal marrow signal. Asymmetric right TMJ osteoarthrosis. MR/MR head/brain wo/w con IMPRESSION: Stable right-sided vestibular schwannoma. No new acute intracranial abnormality. Electronically signed by: Mica Melendez MD 03/27/2024 04:42 PM EDT
[2024-03-21] MEDS: gadobutroL 7.5 ML VIAL IVPUSH (09:02)
== END 2024-03-21 08:12 | disposition home or self-care (01) ==
LOC: HO.MRI 08:11
PROVIDERS: PCP Internal Medicine; Visit Provider Specialist
DX: D33.3 Benign neoplasm of cranial nerves (principal)
CPT/HCPCS: 70553; A9585

== ENCOUNTER 2024-06-18 08:00 | Outpatient (REF) | payer MEDICARE, SELFPAY ==
[2024-06-18 08:18] LABS: MANUAL DIFF FLAG NO
[2024-06-18 08:35] LABS: Basophils Absolute Auto 0.1 X10*3/uL (0.0-0.2); Eosinophils Absolute Auto 0.3 X10*3/uL (0.0-0.4); Hematocrit 48.1 % (42.0-52.0); Hemoglobin 16.4 g/dl (14.0-18.0); Imm Gran Abs Auto 0.02 X10*3/uL (0.00-0.03); Imm Gran Pct Auto 0.3 % (0.0-0.4); Lymphocytes Absolute Auto 1.7 X10*3/uL (1.2-4.9); Lymphocytes Percent Auto 24.6 % (20-40); Mean Corpuscular HGB Conc 34.1 g/dl (31.0-36.0); Mean Corpuscular Hemoglobin 32.1 pg (27.0-33.0); Mean Corpuscular Volume 94.1 fL (80.0-98.0); Mean Platelet Volume 8.2 fL (9.4-12.4); Monocytes Absolute Auto 0.6 X10*3/uL (0.1-1.2); Monocytes Percent Auto 8.2 % (2-11); Neutrophils Absolute Auto 4.4 x10*3/uL (2.0-8.3); Neutrophils Percent Auto 61.9 % (45-73); Platelet Count 266 X10*3/uL (160-400); Red Blood Count 5.11 X10*6/uL (4.60-5.80); Red Cell Distribution Width 12.9 % (11.0-16.0); White Blood Count 7.1 X10*3/uL (4.8-10.8)
[2024-06-18 09:01] LABS: Alanine Aminotransferase 19 U/L (0-40); Albumin Level 3.9 g/dL (3.5-5.0); Alkaline Phosphatase 54 U/L (39-117); Anion Gap 10 (12-20); Aspartate Amino Transferase 23 U/L (5-37); Bilirubin Total 0.7 mg/dL (0.0-1.0); Blood Urea Nitrogen 17 mg/dL (9-16); Calcium 8.9 mg/dL (8.4-10.2); Carbon Dioxide 32 mmol/L (22-29); Chloride 105 mmol/L (96-108); Cholesterol 180 mg/dL (<200); Estimated Glomerular Filt Rate > 60; Glucose Random 109 mg/dL (60-115); HDL Cholesterol 54 mg/dL (>40); LDL Cholesterol Calculated 113 mg/dL (<100); Potassium 4.2 mmol/L (3.3-5.1); Sodium 143 mmol/L (135-145); Total Protein 7.3 g/dL (6.5-8.0); Triglycerides 66 mg/dL (<150)
[2024-06-18 09:15] LABS: Free T4 (Free Thyroxine) 1.38 ng/dL (0.71-1.85); Thyroid Stimulating Hormone 2.28 uIU/mL (0.32-4.0)
[2024-06-18 09:33] LABS: Folate 12.6 ng/mL (> or = 4.0); Prostate Specific Antigen Scr 3.03 ng/mL (<0.05-4.0); Vitamin B12 291 pg/mL (200-900)
== END 2024-06-18 08:01 | disposition home or self-care (01) ==
LOC: HO.LAB 08:00
PROVIDERS: PCP Internal Medicine; Visit Provider Internal Medicine
DX: E78.00 Pure hypercholesterolemia, unspecified (principal); Z12.5 Encounter for screening for malignant neoplasm of prostate
CPT/HCPCS: 36415; 80053; 80061; 82607; 82746; 84153; 84439; 84443; 85025

== ENCOUNTER 2024-07-22 08:30 | Outpatient (AMB) | payer MEDICARE, SELFPAY ==
--- NOTE | 2024-07-22 08:53 | MHC.PC.OV ---
Vital Signs 07/22/24 08:54 Height 5 ft 9 in Weight 146 lb BMI 21.6 BP 134/62 Blood Pressure Location Lt brachial Position Sitting Pulse 69 Pulse Source Pulse Oximeter Pulse Oximetry (%) 95 Oxygen Delivery Method Room Air Intake Visit Reasons: Hypothyroid tobacco abuse Allergies Penicillins [PENICILLINS] Allergy (Mild, Verified 07/22/24 08:56) NAUSEA & VOMITING amoxicillin [AMOXICILLIN] Allergy (Unknown, Verified 07/22/24 08:56) RASH clindamycin [CLINDAMYCIN] Allergy (Unknown, Verified 07/22/24 08:56) RASH egg [EGG] Allergy (Unknown, Verified 07/22/24 08:56) UNKNOWN erythromycin base Allergy (Unknown, Verified 07/22/24 08:56) Unknown Influenza Virus Vaccines Allergy (Unknown, Verified 07/22/24 08:56) Unknown moxifloxacin [From Avelox] Allergy (Unknown, Verified 07/22/24 08:56) Unknown Sulfa (Sulfonamide Antibiotics) Allergy (Unknown, Verified 07/22/24 08:56) Unknown sulfamethoxazole [From BACTRIM] Allergy (Unknown, Verified 07/22/24 08:56) RASH trimethoprim [From BACTRIM] Allergy (Unknown, Verified 07/22/24 08:56) RASH doxycycline Adverse Reaction (Intermediate, Verified 07/22/24 08:56) nausea, diarrhea Tobacco use date assessed: 07/22/24 Fall risk assessment: No Falls in past year Last assessed Fall Risk: 07/22/24 Dental Screening Dental Screen Date: 07/22/24 Did you have a dental visit in the last 12 months?: Yes Did you have a dental problem in the last 6 months where you did not have access to dental care?: No Was dental information given to patient?: Patient has dentist HPI Hypothyroid tobacco abuse HPI Details The patient is a 78-year-old male presenting with a routine follow-up to evaluate management of his chronic health conditions, including vestibular schwannoma, allergic rhinitis, hypertension, and hypothyroidism. The patient's vestibular schwannoma has remained stable since the last MRI performed in March. His history includes allergic rhinitis, for which he has transitioned from Claritin to Zyrtec due to its efficacy, though it causes daytime somnolence. As a result, he now administers Zyrtec at night. The patient's prior history of colorectal cancer surgery 11 years ago was noted, with regular follow-up colonoscopies performed, the last being in 2019. He has not agreed to a gastroenterology referral this year, despite encouragement, citing past interventions. He continues to smoke approximately 17 cigarettes per day, acknowledging awareness of its impact on his CO2 levels and possible respiratory effects causing air trapping in the lungs. Laboratory findings reveal mild hyperglycemia with blood glucose measured at 109 mg/dL from a fasting sample and slightly low vitamin B12 level at 291 pg/mL. The patient is aware and considering supplementation as needed. A new onset rash, noted on the neck and side, has appeared recently, dry in nature and slightly warm to touch. No fever or significant changes in bowel or urinary habits were reported. Previous therapy adjustments and ongoing discussion surrounding medication tolerances have been noted, including switching from antihistamines to manage allergic rhinitis and medication dosings for hypothyroidism with 88 mg of thyroid hormone. [facility] Medical History (Updated 07/22/24 @ 09:28 by Addison Wilburn MD) Acoustic neuroma Screening for prostate cancer COVID-19 virus infection Tobacco abuse Hypercholesterolemia Vitamin D deficiency Hypertension BPH (benign prostatic hyperplasia) Hypothyroidism Liver cyst Cyst of pancreas Ankylosing spondylitis Allergic rhinitis Colon cancer Surgical History History of right cataract surgery History of colonoscopy Hx of colectomy Hx of hemorrhoidectomy Family History Mother Gastric cancer Father CVD (cardiovascular disease) Myocardial infarction Paternal Grandfather Myocardial infarction Brother No problems noted. Sister No problems noted. Social History (Updated 01/18/24 @ 14:06 by Addison Wilburn MD) Household Members: Spouse Housing: House Alcohol intake: never Comment: wine 2 x a year Patient Tobacco Use Status: Current everyday Tobacco user Tobacco use type: Cigarette Cigarette Packs Per Day: 1 Cigarettes Per Day: 18 Years Smoked: 60 e-Cigarette/Vaping Use: Never Used Second Hand Smoke Exposure: Yes Substance Use Type: Former Substance User and Marijuana service: Yes Current occupational status: retired Cognitive needs: No Hearing needs: No Vision needs: Yes (Glasses) Questionnaire PHQ-9 Over the last 2 weeks, how often have you been bothered by any of the following problems? 1. Little interest or pleasure in doing things: not at all 2. Feeling down, depressed, or hopeless: not at all 3. Trouble falling or staying asleep, or sleeping too much: not at all 4. Feeling tired or having little energy: several days 5. Poor appetite or overeating: not at all 6. Feeling bad about yourself - or that you are a failure or have let yourself or your family down: not at all 7. Trouble concentrating on things, such as reading the newspaper or watching television: not at all 8. Moving or speaking so slowly that other people could have noticed. Or the opposite - being so fidgety or restless that you have been moving around a lot more than usual: not at all 9. Thoughts that you would be better off or of hurting yourself in some way: not at all Total score: 1 Depression Screening Interpretation: Negative Depression Screening Done: Yes [id number] - PHQ-9 Billing: Yes Source: Developed by Drs. Miller Wheat, Summer Osei, Blayne Rios and colleagues, with an educational geraldo from [employer]. Thrive Questionnaire Date Thrive assessed: 07/22/24 I am a: Patient What is your living situation today?: I have a steady place to live Within the past 12 months, did the food you bought not last and you didn't have the money to get more?: Never true Within the past 12 months, did you worry whether your food would run out before you got money to buy more?: Never true Do you have trouble paying for medicines?: No Do you have trouble getting transportation to medical appointments?: No Do you have trouble paying your heating and electricity bill?: No Do you have trouble taking care of your child, family member or friend?: No Do you have trouble with day-to-day activities such as bathing, preparing meals, shopping, managing finances, etc.?: No Are you currently unemployed and looking for a job?: No Are you interested in more education?: No Currently or been in a relationship where the following occur: No concerns reported THRIVE Score: 0 AUDIT C Alcohol Use Questionnaire (AUDIT-C) 2. How many drinks containing alcohol do you have on a typical day when you are drinking?: 1 or 2 3. How often do you have six or more drinks on one occasion?: Never Total Score: 0 ZAIRE-7 AMB Questionnaire ZAIRE-7 Date ZAIRE - 7 assessed: 07/22/24 Feeling nervous, anxious, or on edge: 0 = Not at all Not being able to stop or control worryin = Not at all Worrying too much about different things: 0 = Not at all Trouble relaxin = Not at all Being so restless that it is hard to sit still: 0 = Not at all Becoming easily annoyed or irritable: 0 = Not at all Feeling afraid as if something awful might happen: 0 = Not at all Total ZAIRE-7 score (0-4 normal; 5-9 mild; 10-14 moderate; 15-21 severe): 0 Source: Developed by Drs. Miller Wheat, Summer Osei, Blayne Rios and colleagues, with an educational geraldo from [employer]. Physical exam (Primary Care) Vital Signs: Last Vital Signs Pulse 69 07/22/24 08:54 BP 134/62 07/22/24 08:54 Pulse Ox 95 07/22/24 08:54 Oxygen Delivery Method Room Air 07/22/24 08:54 BMI result Body Mass Index 21.6 Tobacco/Smoking Status: Tobacco use Status Tobacco use date assessed 07/22/24 07/22/24 09:00 Patient Tobacco Use Status Current everyday Tobacco 07/22/24 09:00 Tobacco use type Cigarette 07/22/24 09:00 e-Cigarette/Vaping Use Never Used 07/22/24 09:00 PHQ-9: PHQ-9 Score PHQ-9: Total score 1 07/22/24 09:18 Depression Screening Interpretation: Negative Thrive Assessment: Date of Thrive Assessment Date Thrive assessed 07/22/24 07/22/24 09:00 Currently or been in a relationship where the following occur: No concerns reported Const General: alert; No acute distress Eyes Conjunctivae: conjunctivae normal Resp Auscultation: clear to auscultation bilaterally Cardio Rate: regular rate Rhythm: regular rhythm GI Inspection: Yes normal to inspection Extrem General: Yes normal to inspection and No edema Coding Level of Care Code Est Pt Level 4 (54451) Diagnoses Malignant neoplasm of colon, unspecified part of colon C18.9 Colon location: unspecified part of colon 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; 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: 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 Hypercholesterolemia E78.00 Tobacco abuse Z72.0 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 Colonoscopy refused Z53.20 Seborrhea L21.9 Additional Codes PHQ-9 - 15763 - PHQ-9 Billing: Yes ([id number]) Assessment & Plan Assessment & Plan (1) Colon cancer: Comment: Colonoscopy January 2019 3 years Code(s): C18.9 - Malignant neoplasm of colon, unspecified Category: Medical Qualifiers: Colon location: unspecified part of colon Qualified Code(s): C18.9 - Malignant neoplasm of colon, unspecified Plan: Patient is reminded about colon testing (2) Hypothyroidism: Code(s): E03.9 - Hypothyroidism, unspecified Category: Medical Qualifiers: Hypothyroidism type: 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 Qualified Code(s): E03.8 - Other specified hypothyroidism; E06.3 - Autoimmune thyroiditis Plan: Continue with present thyroid medication at 88 mcg once a day (3) Hypercholesterolemia: Code(s): E78.00 - Pure hypercholesterolemia, unspecified Category: Medical Plan: Avoid fried foods, chicken skin, eggs, butter margarine, pastries and meat. Be it pork or beef they have a lot of cholesterol patient's LDL is under control with no medications. (4) Tobacco abuse: Code(s): Z72.0 - Tobacco use Category: Medical Plan: Patient is strongly advised to stop smoking! (5) Acoustic neuroma of both vestibular nerves: Comment: May 2021 6 months, December 2021 1.3 x 1 by 0.8 MRI December 2022 stable 03/2024 Code(s): D33.3 - Benign neoplasm of cranial nerves Category: Medical Plan: Stable 06/25/2024 MRI (6) Colonoscopy refused: Code(s): Z53.20 - Procedure and treatment not carried out because of patient's decision for unspecified reasons Category: Medical (7) Seborrhea: Code(s): L21.9 - Seborrheic dermatitis, unspecified Category: Medical Plan - Continue monitoring vestibular schwannoma with regular imaging, as patient reports stability. - Recommend continuing Zyrtec at night to manage allergic rhinitis and reduce daytime lethargy. - Maintain antihypertensive management. No changes to current medication indicated at this time. - Continue levothyroxine at current dose for hypothyroidism management. - Encourage smoking cessation due to its impact on respiratory health. - Address mild hyperglycemia with dietary reviews and periodic reassessment, considering prediabetes management if levels persist. - Prescribe topical treatment for the rash with follow-up if no improvement, avoiding strong steroids unless otherwise needed. - Encourage discussion regarding regular colorectal cancer screening or gastroenterology consultation for ongoing surveillance. - Recommend vitamin supplementation in light of marginal low levels. - Advise the patient on the importance of a pneumonia vaccination, though currently declined by the patient. Medications: New ketoconazole 2% 1 appl topical BID 30 grams 0RF L21.9 - Seborrheic dermatitis, unspecified cetirizine (Zyrtec) 10 mg PO DAILY PRN 30 tabs 0RF allergy symptoms
[2024-07-22 08:54] VITALS: BP 134/62; PULSE 69; O2SAT 95; BMI 21.6
== END 2024-07-22 09:35 | disposition home or self-care (01) ==
PROVIDERS: PCP Internal Medicine; Visit Provider Internal Medicine
DX: C18.9 Malignant neoplasm of colon, unspecified (principal); D33.3 Benign neoplasm of cranial nerves; E03.8 Other specified hypothyroidism; E06.3 Autoimmune thyroiditis; E78.00 Pure hypercholesterolemia, unspecified; Z72.0 Tobacco use; Z53.20 Procedure and treatment not carried out because of patient's decision for unspecified reasons; L21.9 Seborrheic dermatitis, unspecified

== ENCOUNTER → 2024-07-22 08:30 | Outpatient (BNVA) | payer MEDICARE, SELFPAY | PROVIDERS: PCP Internal Medicine; Visit Provider Internal Medicine | DX: E03.9 Hypothyroidism, unspecified (principal); I10 Essential (primary) hypertension; C18.9 Malignant neoplasm of colon, unspecified; E03.8 Other specified hypothyroidism; E06.3 Autoimmune thyroiditis; E78.00 Pure hypercholesterolemia, unspecified; D33.3 Benign neoplasm of cranial nerves; L21.9 Seborrheic dermatitis, unspecified; F17.210 Nicotine dependence, cigarettes, uncomplicated; Z53.20 Procedure and treatment not carried out because of patient's decision for unspecified reasons | CPT/HCPCS: 96127; 99212 ==

== ENCOUNTER 2025-01-27 07:16 | Outpatient (REF) | payer MEDICARE, SELFPAY ==
[2025-01-27 07:26] LABS: MANUAL DIFF FLAG NO
[2025-01-27 08:00] LABS: Basophils Absolute Auto 0.1 X10*3/uL (0.0-0.2); Basophils Percent Auto 1.1 % (0-2); Eosinophils Absolute Auto 0.4 X10*3/uL (0.0-0.4); Eosinophils Percent Auto 5.8 % (0-4); Hematocrit 46.6 % (42.0-52.0); Hemoglobin 15.5 g/dl (14.0-18.0); Imm Gran Abs Auto 0.02 X10*3/uL (0.00-0.03); Imm Gran Pct Auto 0.3 % (0.0-0.4); Lymphocytes Absolute Auto 1.9 X10*3/uL (1.2-4.9); Lymphocytes Percent Auto 28.8 % (20-40); Mean Corpuscular HGB Conc 33.3 g/dl (31.0-36.0); Mean Corpuscular Hemoglobin 31.8 pg (27.0-33.0); Mean Corpuscular Volume 95.7 fL (80.0-98.0); Mean Platelet Volume 8.8 fL (9.4-12.4); Monocytes Absolute Auto 0.5 X10*3/uL (0.1-1.2); Monocytes Percent Auto 8.1 % (2-11); Neutrophils Absolute Auto 3.7 x10*3/uL (2.0-8.3); Neutrophils Percent Auto 55.9 % (45-73); Platelet Count 253 X10*3/uL (160-400); Red Blood Count 4.87 X10*6/uL (4.60-5.80); Red Cell Distribution Width 12.9 % (11.0-16.0); White Blood Count 6.6 X10*3/uL (4.8-10.8)
[2025-01-27 08:14] LABS: Appearance Urine Clear; Color Urine Yellow; Glucose Urine UA Negative (Negative); Leukocyte Esterase Urine Negative (Negative); Nitrite Urine Negative (Negative); PH 6.5 (5.0-9.0); Specific Gravity - Urine 1.025 (1.005-1.025); Urine Blood Negative (Negative); Urine Ketones Negative (Negative); Urine Protein Negative (Neg-Trace)
[2025-01-27 08:19] LABS: Bacteria Urine None Seen (None Seen); Hyaline Casts Urine 0-2 /LPF (0-2); RBC Urine 0-2 /HPF (0-2); Squamous Epithelial Cell Urine 0-2 /HPF (0-2); WBC Urine 0-5 /HPF (0-5)
[2025-01-27 08:40] LABS: Alanine Aminotransferase 22 U/L (0-40); Albumin Level 3.9 g/dL (3.5-5.0); Alkaline Phosphatase 48 U/L (39-117); Anion Gap 11 (12-20); Aspartate Amino Transferase 24 U/L (5-37); Bilirubin Total 0.7 mg/dL (0.0-1.0); Blood Urea Nitrogen 21 mg/dL (9-16); Calcium 9.1 mg/dL (8.4-10.2); Carbon Dioxide 30 mmol/L (22-29); Chloride 105 mmol/L (96-108); Cholesterol 162 mg/dL (<200); Estimated Glomerular Filt Rate > 60; Glucose Random 94 mg/dL (60-115); HDL Cholesterol 49 mg/dL (>40); LDL Cholesterol Calculated 102 mg/dL (<100); Potassium 3.9 mmol/L (3.3-5.1); Sodium 142 mmol/L (135-145); Total Protein 6.9 g/dL (6.5-8.0); Triglycerides 55 mg/dL (<150)
[2025-01-27 08:52] LABS: Free T4 (Free Thyroxine) 1.26 ng/dL (0.71-1.85); Thyroid Stimulating Hormone 3.71 uIU/mL (0.32-4.0)
[2025-01-27 09:01] LABS: Prostate Specific Antigen Scr 1.94 ng/mL (<0.05-4.0); Vitamin B12 242 pg/mL (200-900)
== END 2025-01-27 07:17 | disposition home or self-care (01) ==
LOC: HO.LAB 07:16
PROVIDERS: PCP Internal Medicine; Visit Provider Internal Medicine
DX: Z12.5 Encounter for screening for malignant neoplasm of prostate (principal); E03.8 Other specified hypothyroidism; E06.3 Autoimmune thyroiditis; E78.00 Pure hypercholesterolemia, unspecified
CPT/HCPCS: 36415; 80053; 80061; 81001; 82607; 82746; 84153; 84439; 84443; 85025

== ENCOUNTER 2025-02-02 08:47 | Outpatient (AMB) | payer MEDICARE, SELFPAY ==
--- NOTE | 2025-02-02 08:54 | AM.OFFVISMDC ---
Intake Vital Signs 02/02/25 08:56 Height 5 ft 9 in Weight 142 lb BMI 21.0 BP 120/60 Blood Pressure Location Rt brachial Position Sitting Pulse 62 Pulse Source Pulse Oximeter Temp 97.3 F Temp Source Temporal Artery Scan Pulse Oximetry (%) 96 Oxygen Delivery Method Room Air Intake Visit Reasons: [facility] G0439 Intake Note: Patient is here for an Annual Wellness Visit. Actuarial Technician Required: No Pigment And Lacquer Mixer: Pigment And Lacquer Mixer offered & declined Accompanied by: Self / Same As Patient Allergies Penicillins (PENICILLINS) Allergy (Mild, Verified 02/02/25 09:12) NAUSEA & VOMITING amoxicillin (AMOXICILLIN) Allergy (Unknown, Verified 02/02/25 09:12) RASH clindamycin (CLINDAMYCIN) Allergy (Unknown, Verified 02/02/25 09:12) RASH egg (EGG) Allergy (Unknown, Verified 02/02/25 09:12) UNKNOWN erythromycin base Allergy (Unknown, Verified 02/02/25 09:12) Unknown Influenza Virus Vaccines Allergy (Unknown, Verified 02/02/25 09:12) Unknown moxifloxacin (From Avelox) Allergy (Unknown, Verified 02/02/25 09:12) Unknown Sulfa (Sulfonamide Antibiotics) Allergy (Unknown, Verified 02/02/25 09:12) Unknown sulfamethoxazole (From BACTRIM) Allergy (Unknown, Verified 02/02/25 09:12) RASH trimethoprim (From BACTRIM) Allergy (Unknown, Verified 02/02/25 09:12) RASH doxycycline Adverse Reaction (Intermediate, Verified 02/02/25 09:12) nausea, diarrhea Medication List - Last Reconciled 02/02/25 by Rhonda Lares PA-C aspirin (Adult Low Dose Aspirin) 81 mg PO DAILY cholecalciferol (vitamin D3) (Vitamin D3) 50 mcg PO DAILY fluticasone propionate 50 mcg/actuation (Flonase Allergy Relief) 1 spray intranasal DAILY levothyroxine 88 mcg PO DAILY 90 days HPI SW[facility] G0439 HPI Details 79-year-old male with past medical history of hypothyroid, colon cancer, hypercholesterolemia, tobacco use disorder, acoustic neuroma, generalized anxiety disorder last seen 07/2024 coming in for annual wellness exam. The patient is a 79-year-old male presenting for an annual wellness visit. The patient experiences a lack of vitality and low energy, which he attributes to his thyroid levels. The patient has a history of chronic sinus issues and has used various antihistamines, including Claritin, Zyrtec, and Mary. The patient had a tumor in his colon approximately 14 years ago and has undergone regular screenings since then, with no current symptoms of recurrence. The patient has a history of anxiety and a positive depression screening, although he reports not feeling depressed or anxious currently. eye doctor: not currently following with eye doctor colonoscopy: declined today Advanced Directives: HCP and MOLST previously completed [facility] Medical History Acoustic neuroma Screening for prostate cancer COVID-19 virus infection Tobacco abuse Hypercholesterolemia Vitamin D deficiency Hypertension BPH (benign prostatic hyperplasia) Hypothyroidism Liver cyst Cyst of pancreas Ankylosing spondylitis Allergic rhinitis Colon cancer Surgical History History of right cataract surgery History of colonoscopy Hx of colectomy Hx of hemorrhoidectomy Family History Mother Gastric cancer Father CVD (cardiovascular disease) Myocardial infarction Paternal Grandfather Myocardial infarction Brother No problems noted. Sister No problems noted. Social History Household Members: Spouse Housing: House Alcohol intake: never Comment: wine 2 x a year Patient Tobacco Use Status: Current everyday Tobacco user Tobacco use type: Cigarette Cigarette Packs Per Day: 1 Cigarettes Per Day: 17 Years Smoked: 60 e-Cigarette/Vaping Use: Never Used Second Hand Smoke Exposure: Yes Substance Use Type: Former Substance User and Marijuana service: Yes Current occupational status: retired Cognitive needs: No Hearing needs: No Vision needs: Yes (Glasses) Questionnaire Medicare Wellness Checkup What [age] What gender do you identify with?: male During the past 4 weeks, how much have you been bothered by emotional problems such as feeling anxious, depressed, irritable, sad or downhearted, and blue?: not at all During the past 4 weeks, has your physical & emotional health limited your social activities with family, friends, neighbors, or groups?: not at all During the past 4 weeks, how much bodily pain have you generally had?: mild pain During the past 4 weeks, was someone available to help you if you needed & wanted help?: yes, as much as I wanted During the past 4 weeks, what was the hardest physical activity you could do for at least 2 minutes?: moderate Can you get to places out of walking distance without help? (For eg., can you travel alone on buses, taxis or drive your car?): Yes Can you go shopping for groceries or clothes without someone's help?: Yes Can you prepare your own meals?: Yes Can you do your housework without help?: Yes Because of any health problems, do you need the help of another person with your personal care needs such as eating, bathing, dressing or getting around the house?: No Can you handle your own money without help?: Yes During the past 4 weeks, how would you rate your health in general?: good During the past 4 weeks how have things been going for you?: good & bad parts about equal Are you having difficulties driving your car?: no Do you always fasten your seat belt when you are in a car?: yes, usually During past 4 weeks, have you been bothered by the following: never: Sexual problems?, Trouble eating well?, Teeth or denture problems? and Problems using the telephone?, seldom: Falling or dizzy when standing up and sometimes: Tiredness or fatigue? Have you fallen 2 or more times in the past year?: No Are you afraid of falling?: No Are you a smoker?: yes, but I'm not ready to quit During the past 4 weeks, how many drinks of wine, beer, or other alcoholic beverages did you have?: no alcohol at all Do you exercise for about 20 minutes 3 or more times a week?: yes, all the time Have you been given information to help with the following?: no: Hazards in your house that might hurt you? and no: Keeping track of your medications? How often do you have trouble taking medicines the way you have been told to take them?: I always take medicine as prescribed How confident are you that you can control & manage most of your health problems?: somewhat confident What is your race?: White PHQ-9 Over the last 2 weeks, how often have you been bothered by any of the following problems? 1. Little interest or pleasure in doing things: several days 2. Feeling down, depressed, or hopeless: not at all 3. Trouble falling or staying asleep, or sleeping too much: several days 4. Feeling tired or having little energy: more than half the days 5. Poor appetite or overeating: not at all 6. Feeling bad about yourself - or that you are a failure or have let yourself or your family down: not at all 7. Trouble concentrating on things, such as reading the newspaper or watching television: not at all 8. Moving or speaking so slowly that other people could have noticed. Or the opposite - being so fidgety or restless that you have been moving around a lot more than usual: not at all 9. Thoughts that you would be better off or of hurting yourself in some way: not at all Total score: 4 Depression Screening Interpretation: Positive Depression Screening Follow-up: Existing condition and Declines treatment Depression Screening Done: Yes 69338 - PHQ-9 Billing: Yes Source: Developed by Drs. Miller Wheat, Summer Osei, Blayne Rios and colleagues, with an educational geraldo from [email or web address]. Thrive Questionnaire Date Thrive assessed: 02/02/25 I am a: Patient What is your living situation today?: I have a steady place to live Within the past 12 months, did the food you bought not last and you didn't have the money to get more?: Never true Within the past 12 months, did you worry whether your food would run out before you got money to buy more?: Never true Do you have trouble paying for medicines?: No Do you have trouble getting transportation to medical appointments?: No Do you have trouble paying your heating and electricity bill?: No Do you have trouble taking care of your child, family member or friend?: No Do you have trouble with day-to-day activities such as bathing, preparing meals, shopping, managing finances, etc.?: No Are you currently unemployed and looking for a job?: No Are you interested in more education?: No Please select the resources that you would like help with: None Currently or been in a relationship where the following occur: No concerns reported THRIVE Score: 0 ZAIRE-7 AMB Questionnaire ZAIRE-7 Date ZAIRE - 7 assessed: 02/02/25 Feeling nervous, anxious, or on edge: 0 = Not at all Not being able to stop or control worryin = Not at all Worrying too much about different things: 0 = Not at all Trouble relaxin = Not at all Being so restless that it is hard to sit still: 0 = Not at all Becoming easily annoyed or irritable: 0 = Not at all Feeling afraid as if something awful might happen: 0 = Not at all Total ZAIRE-7 score (0-4 normal; 5-9 mild; 10-14 moderate; 15-21 severe): 0 Source: Developed by Drs. Miller Wheat, Summer Osei, Blayne Rios and colleagues, with an educational geraldo from [email or web address]. ZAIRE-7 Assessment Billing ZAIRE-7 Assessment Tool: ZAIRE-7 Assessment 01349 AUDIT C Alcohol Use Questionnaire (AUDIT-C) 2. How many drinks containing alcohol do you have on a typical day when you are drinking?: 1 or 2 3. How often do you have six or more drinks on one occasion?: Never Total Score: 0 Review of Systems Const Denies body aches, Denies chills, Denies fever(s), Denies headache(s) and Denies poor appetite Eyes Reports no additional complaints ENT Denies dysphagia, Denies dizziness, Denies headache(s) and Denies odynophagia Card Denies chest pain, Denies syncope, Denies edema, Denies irregular heart rhythm, Denies lightheadedness and Denies dyspnea Resp Denies cough and Denies dyspnea GI Denies abdominal pain, Denies constipation, Denies dysphagia, Denies diarrhea, Denies nausea, Denies odynophagia and Denies vomiting Reports no additional complaints Musc Reports no additional complaints and Denies abnormal gait Skin/Breast Reports system reviewed and no additional complaints, except as documented Neuro Denies abnormal gait, Denies dizziness, Denies syncope and Denies headache(s) Psych Reports no additional complaints Physical Exam Vital Signs: Last Vital Signs Temp 97.3 F 02/02/25 08:56 Pulse 62 02/02/25 08:56 BP 120/60 02/02/25 08:56 Pulse Ox 96 02/02/25 08:56 Oxygen Delivery Method Room Air 02/02/25 08:56 BMI result Body Mass Index 21.0 Const General: cooperative, healthy appearing, comfortable and no acute distress Orientation/consciousness: patient oriented x3 HEENT Head: Yes normocephalic Ears: hearing grossly normal bilaterally, external ears normal, TM's normal bilaterally and EAC's normal General nose exam: Normal external nose present Face and sinus: Yes normal facial exam and Yes sinuses nontender Mouth: Normal oral and palatal mucosa present and tongue normal Throat: Yes posterior oropharynx normal Eyes General: appearance normal, both eyes and all related structures Conjunctivae: conjunctivae normal Pupils: Equal, round and reactive pupils present EOM: EOMs intact bilaterally and No Nystagmus present Neck Neck: Yes normal visual inspection, Yes full ROM and Yes no lymphadenopathy Chest Chest palpation & inspection: normal inspection of the chest Resp Effort & Inspection: normal respiratory effort Auscultation: clear to auscultation bilaterally, no crackles, no rales, no rhonchi, no wheezes and breath sounds present Cardio Rate: regular rate Rhythm: regular rhythm Peripheral pulses: radial pulses present and dorsalis pedis present GI Inspection: Yes normal to inspection and No Abdominal wall edema Palpation (GI): Soft to palpation, not firm and nontender Auscultation: normal bowel sounds Rectal Exam - Male: Yes deferred General: Yes no CVA tenderness Back/Spine/Pelvis Back: no CVA tenderness Skin General skin exam: no rashes or lesions noted Neuro General: patient oriented x3 Cranial nerves: Yes Equal, round and reactive pupils present, Yes Midline tongue present, Yes Ability to bilaterally elevate shoulders present and No Nystagmus present Gait exam (Neuro): Normal gait present Extrem General: Yes normal to inspection, Yes full ROM, No no pedal edema and No edema Psych Speech and movement: Normal speech and movement present Affect: normal affect Insight: Good insight present (Psych) Judgement: Good judgement present (Psych) Assessment & Plan Assessment & Plan (1) Medicare annual wellness visit, subsequent: Code(s): Z00.00 - Encounter for general adult medical examination without abnormal findings Plan: [place] of care was reviewed with patient patient was provided with a written screening schedule. Healthcare proxy/ MOLST forms were reviewed with patient and he states he has completed these already. He is overdue for his colonoscopy in his declining the screening today. PSA is up-to-date and within normal limits. He is due for pneumonia and flu vaccine but is declining both of these vaccinations today. Healthy diet and regular exercise is encouraged. (2) Generalized anxiety disorder: Comment: Declined referral for counseling August 2021 Code(s): F41.1 - Generalized anxiety disorder Plan: Declining referral or medication at this time. (3) Hypercholesterolemia: Code(s): E78.00 - Pure hypercholesterolemia, unspecified Plan: Avoid fried foods, chicken skin, eggs, butter margarine, pastries and meat. Be it pork or beef they have a lot of cholesterol patient's LDL is under control with no medications. 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 TSH and T4 within normal limits. (5) Vitamin B12 deficiency: Code(s): E53.8 - Deficiency of other specified B group vitamins Plan: B12 level is normal on last labs. (6) Fatigue: Code(s): R53.83 - Other fatigue Plan: Plan to order for testosterone for further evaluation. I offered for home sleep study which was declined today (7) Colonoscopy refused: Code(s): Z53.20 - Procedure and treatment not carried out because of patient's decision for unspecified reasons Plan: Patient refusing colonoscopy I did discuss with his history of colon cancer I do recommend screening however he continues to decline. (8) Colon cancer: Comment: Colonoscopy January 2019 3 years Code(s): C18.9 - Malignant neoplasm of colon, unspecified Qualifiers: Colon location: unspecified part of colon Qualified Code(s): C18.9 - Malignant neoplasm of colon, unspecified Plan: Patient has had negative colonoscopy since his diagnosis of colon cancer. He is declining additional screenings. (9) Acoustic neuroma of both vestibular nerves: Comment: May 2021 6 months, December 2021 1.3 x 1 by 0.8 MRI December 2022 stable 03/2024 Code(s): D33.3 - Benign neoplasm of cranial nerves Plan: Stable 06/25/2024 MRI and is not currently following with any specialists. Asymptomatic at this time. (10) Tobacco abuse: Code(s): Z72.0 - Tobacco use Plan: Smoking cigarettes and the use of tobacco can be harmful. We discussed the importance of stopping and options to aid in smoking cessation Plan This note was constructed using voice recognition software. While every effort has been made to ensure accuracy and parking manager, still areas may have been included sometimes these areas may affect the content or meeting of the given symptoms. Total time spent caring for the patient today was 30 minutes. This includes time spent before the visit reviewing the chart, time spent during the visit, and time spent after the visit and documentation. Patient was informed and verbally consented to the use of an ambient scribe for clinic note documentation during this visit. 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 Vitamin B12 deficiency E53.8 Fatigue R53.83 Colonoscopy refused Z53.20 Malignant neoplasm of colon, unspecified part of colon C18.9 Colon location: unspecified part of colon 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 Tobacco abuse Z72.0 CPT Codes Advance Care Planning - Advance Care Planning discussion: On file, no changes ([id number]) Advance Care Planning - Time spent: 1-15 minutes, on File ([id number]) Additional Codes ZAIRE-7 Assessment Billing - ZAIRE-7 Assessment Tool: ZAIRE-7 Assessment 64997 ([id number]) PHQ-9 - 54447 - PHQ-9 Billing: Yes ([id number]) Advance Care Planning Advance Care Planning discussion: On file, no changes Date of discussion: 02/02/25 Time spent: 1-15 minutes, on File
[2025-02-02 08:56] VITALS: BP 120/60; PULSE 62; TEMP 36.3; O2SAT 96; BMI 21.0
== END 2025-02-02 09:39 | disposition home or self-care (01) ==
LOC: HO.HMCH 08:47
PROVIDERS: PCP Internal Medicine
DX: Z00.00 Encounter for general adult medical examination without abnormal findings (principal); F41.1 Generalized anxiety disorder; C18.9 Malignant neoplasm of colon, unspecified; D33.3 Benign neoplasm of cranial nerves; E78.00 Pure hypercholesterolemia, unspecified; E03.8 Other specified hypothyroidism; E06.3 Autoimmune thyroiditis; E53.8 Deficiency of other specified B group vitamins; R53.83 Other fatigue; Z53.20 Procedure and treatment not carried out because of patient's decision for unspecified reasons; Z72.0 Tobacco use

== ENCOUNTER 2025-02-02 08:47 | Outpatient (REF) | payer MEDICARE, SELFPAY ==
[2025-02-09 01:08] LABS: Testosterone, Free 48.6 pg/mL (30.0-135.0); Testosterone, Total 371 ng/dL (250-1100)
== END 2025-02-02 08:48 | disposition home or self-care (01) ==
LOC: HO.LAB 08:47
PROVIDERS: PCP Internal Medicine
DX: Z00.00 Encounter for general adult medical examination without abnormal findings (principal); R53.83 Other fatigue; F41.1 Generalized anxiety disorder; E78.00 Pure hypercholesterolemia, unspecified; E03.8 Other specified hypothyroidism; E06.3 Autoimmune thyroiditis; E53.8 Deficiency of other specified B group vitamins; C18.9 Malignant neoplasm of colon, unspecified; D33.3 Benign neoplasm of cranial nerves; Z72.0 Tobacco use
CPT/HCPCS: 36415; 84402; 84403; 96127

== ENCOUNTER 2025-04-05 09:48 | Emergency (ER) | payer MEDICARE, SELFPAY ==
--- OUTSIDE RECORDS SUMMARY | 2025-04-04 09:50 | XMS_ITS | Encounter Summary ---
Author Organization [facility] Address [address] [place] [phone] Phone Care Team Providers Care Food Service Representative Name Role Phone Addison Wilburn MD Primary Care Provider [phone] Reason for Visit * Reason Comments Nasal [...] Office Visit [facility] at [address] [address] Tori Pedroza FNP [address] [place] [phone] [email or web address] Viral sinusitis (Primary Dx) Social History Tobacco [...] Progress Notes * Yovany Tori Jose Daniel, MANAGER CONSUMER - 04/04/2025 9:50 AM EDT Images from [...] viral vs. Bacterial, pt and walked out. documented in this encounter Plan of Treatment Not on file documented as of this encounter Visit Diagnoses Diagnosis Viral sinusitis- Primary documented in this encounter Care Teams Food Service Representative Relationship Specialty Start Date End Date Addison Wilburn MD [address] [facility] [address] [place] [address] PCP - General Internal Medicine 04/04/25 documented as of this encounter Additional Source Comments The information contained in this document represents components of the legal health record. It is not the complete legal health record.[facility]
--- NOTE | ~2025-04-05 | XR_ITS ---
CLINICAL HISTORY: cough 2 view chest x-ray Comparison: None provided Findings: The lungs are clear. Normal size heart. No acute fracture. IMPRESSION: 1. No acute findings. This document has been electronically signed by: Fareed Jackman MD on 04/05/2025 11:23:54
[2025-04-05 10:09] VITALS: BP 182/81; PULSE 60; RESP 18; TEMP 36.7; O2SAT 97; BMI 20.9
--- OUTSIDE RECORDS SUMMARY | 2025-04-05 10:21 | XMS_ITS | Clinical Summary ---
Author Organization [facility] Address [address] [place] [phone] Phone Care Team Providers Care Dish Washer Name Role Phone Addison Wilburn MD Primary Care Provider [phone] Allergies Active Allergy Reactions Criticality Noted Date Comments Amoxicillin 04/04/2025 Azithromycin Nausea and/or Vomiting 04/04/2025 Clindamycin 04/04/2025 Doxycycline Hyclate Nausea and/or Vomiting 03/08 Moxifloxacin 04/04/2025 Sulfa (Sulfonamide Antibiotics) Nausea and/or Vomiting 04/04/2025 Medications levothyroxine (SYNTHROID, LEVOTHROID) 88 MCG tablet Take 1 tablet by mouth every morning. 01/23/2025 Active Active Problems No known active problems Encounters Date Type Department Care Team Description 04/04/2025 9:50 AM EDT Office Visit [facility] at [address] [address] Tori Pedroza FNP Viral sinusitis (Primary Dx) from Last 3 Months Social History Tobacco Use Types Packs/Day Years [...] on file Sexual Orientation Not on file Last Filed Vital Signs Vital Sign Reading Time Taken Comments Blood Pressure 154/78 04/04/2025 10:03 AM EDT Pulse 59 04/04/2025 10:03 AM EDT Temperature 37.1 C (98.8 F) 04/04/2025 10:03 AM EDT Respiratory Rate 19 04/04/2025 10:03 AM EDT Oxygen Saturation 98% 04/04/2025 10:03 AM EDT Inhaled Oxygen Concentration - - Weight - - Height - - Body Mass Index - - Plan of Treatment Health Maintenance Due Date Last Done Comments LIPID PANEL 1947 TSH LEVEL 1947 DEPRESSION SCREENING 1959 SMOKING Hx and SMOKELESS TOBACCO SCREENING 11/08/1960 HEPATITIS C SCREENING 11/08/1965 PNEUMOCOCCAL VACCINES (50+ years) (1 of 1 - PCV) 11/08/1997 ZOSTER VACCINES (1 of 2) 11/08/1997 RSV VACCINE (1 - 1-dose 75+ series) 11/08/2022 COVID-19 VACCINE (4 - 2023-2 5 season) 2024 07/08/2021, 11/04/2020, 10/14/2020 INFLUENZA VACCINE (#1) 2025 Adult Td,Tdap Booster 08/13/2028 08/13/2018 , 02/06/2012 HEPATITIS A VACCINES Aged Out No long er eligible based on patient's age to complete this topic HIB VACCINES Aged Out No longer eligi ble based on patient's age to complete this topic MENINGOCOCCAL VACCINES (ACWY) Aged Out No longer eligible based on patient's age to complete this topic MENINGOCOCCAL VACCINES (B) Aged Out N o longer eligible based on patient's age to complete this topic Medical Devices Not on file Insurance MEDICARE PART A & B MEDICARE PART A & B MEDICARE PART A & B MEDICARE PART A & B MEDICARE PART A & B MEDICARE PART A & B Care Teams Dish Washer Relationship Specialty Start Date End Date Addison Wilburn MD [address] [place] [address] [address] [place] [phone] PCP - General Internal Medicine 04/04/25 Additional Source Comments The information contained in this document represents components of the legal health record. It is not the complete legal health record.[facility]
--- NOTE | 2025-04-05 10:41 | ED.HA ---
HPI - Headache General Chief Complaint: Headache Stated Complaint: sinus infection Time Seen by Provider: 04/05/25 10:30 Source: patient Mode of arrival: ambulatory Limitations: no limitations History of Present Illness ED Provider: HPI Narrative: 79-year-old male, with history of right-sided schwannoma, history of sinus infections last time 7 years ago, presenting with right-sided sinus pressure and for the past 2 weeks, reports purulent drainage that he has to cough up, no fevers or chills reported, pressure from a sinus reported into the eye ear jaw no chest pain or shortness of breath. Related Data Home Medications ?Medication ?Instructions ?Recorded ?Confirmed cholecalciferol (vitamin D3) 50 50 mcg PO DAILY 08/05/20 02/02/25 mcg (2,000 unit) tablet (Vitamin D3) aspirin 81 mg tablet,delayed 81 mg PO DAILY 08/17/20 02/02/25 release (Adult Low Dose Aspirin) Previous Rx's ?Medication ?Instructions ?Recorded fluticasone propionate 50 1 spray intranasal DAILY #16 grams 05/09/24 mcg/actuation nasal spray,suspension (Flonase Allergy Relief) levothyroxine 88 mcg tablet 88 mcg PO DAILY 90 days #90 tabs 08/03/24 azithromycin 500 mg tablet 500 mg PO DAILY 7 days #7 tabs 04/05/25 Allergies Allergy/AdvReac Type Severity Reaction Status Date / Time Penicillins (PENICILLINS) Allergy Mild NAUSEA & Verified 04/05/25 10:11 VOMITING amoxicillin (AMOXICILLIN) Allergy Unknown RASH Verified 04/05/25 10:11 clindamycin (CLINDAMYCIN) Allergy Unknown RASH Verified 04/05/25 10:11 egg (EGG) Allergy Unknown UNKNOWN Verified 04/05/25 10:11 erythromycin base Allergy Unknown Unknown Verified 04/05/25 10:11 Influenza Virus Vaccines Allergy Unknown Unknown Verified 04/05/25 10:11 moxifloxacin (From Avelox) Allergy Unknown Unknown Verified 04/05/25 10:11 Sulfa (Sulfonamide Allergy Unknown Unknown Verified 04/05/25 10:11 Antibiotics) sulfamethoxazole (From Allergy Unknown RASH Verified 04/05/25 10:11 BACTRIM) trimethoprim (From BACTRIM) Allergy Unknown RASH Verified 04/05/25 10:11 azithromycin Allergy Anaphylaxis Verified 04/05/25 10:13 doxycycline AdvReac Intermediate nausea, Verified 04/05/25 10:11 diarrhea Review of Systems Constitutional: Constitutional: Reports as per HPI [facility] Past Medical History Medical History Acoustic neuroma Screening for prostate cancer COVID-19 virus infection Tobacco abuse Hypercholesterolemia Vitamin D deficiency Hypertension BPH (benign prostatic hyperplasia) Hypothyroidism Liver cyst Cyst of pancreas Ankylosing spondylitis Allergic rhinitis Colon cancer Surgical History History of right cataract surgery History of colonoscopy Hx of colectomy Hx of hemorrhoidectomy Family History Family History Mother Gastric cancer Father CVD (cardiovascular disease) Myocardial infarction Paternal Grandfather Myocardial infarction Brother No problems noted. Sister No problems noted. Social History Social History Household Members: Spouse Housing: House Alcohol intake: never Comment: wine 2 x a year Patient Tobacco Use Status: Current everyday Tobacco user Tobacco use type: Cigarette Cigarette Packs Per Day: 1 Cigarettes Per Day: 17 Years Smoked: 60 e-Cigarette/Vaping Use: Never Used Second Hand Smoke Exposure: Yes Substance Use Type: Former Substance User and Marijuana Advance Directives: Yes Advance Directives Information Provided: Yes Advance Directives on File: No service: Yes Current occupational status: retired Cognitive needs: No Hearing needs: No Vision needs: Yes (Glasses) Physical Exam Vital Signs: Vital Signs: Last Vital Signs Temp 98.1 F 04/05/25 10:09 Pulse 60 04/05/25 10:09 Resp 18 04/05/25 10:09 BP 182/81 H 04/05/25 10:09 Pulse Ox 97 04/05/25 10:09 O2 Del Method Room Air 04/05/25 10:09 BMI result Body Mass Index 20.9 Const: Other: Gen: ?Overall well-appearing patient HEENT: PERRLA, EOMI, MMM, uvula midline, no evidence for acute otitis media bilaterally, boggy nasal mucosa, no obvious opacification with a lamp test Neck: Supple, no LAD CV: RRR, no obvious murmurs appreciated Resp: ?No wheezing rales rhonchi no stridor moving air well Abd: ?Bowel sounds are present, no tenderness no rebound no rigidity MSK: FROM, strength 5/5 all extremities Skin: Warm, dry, intact, Neuro: ?Alert and oriented x3, moving upper and lower extremities symmetrically, no obvious facial asymmetry noted, left-sided horizontal nonsustained nystagmus without rotary or vertical component Medical Decision Making Medical Decision Making MDM Narrative: See differential as below overall well-appearing, we will obtain chest x-ray to make sure no underlying pneumonia no evidence for sustained nystagmus when the other findings to suspect cerebellar stroke, he states he is always a little dizzy, no evidence for oropharyngeal or ear infections he does not routinely get prescribed antibiotics for sinus infection I will prescribe a medication today Differential Diagnosis Differential Diagnoses: The differential diagnosis associated with the presentation includes (Acute otitis media, sinus infection, seasonal allergies, pneumonia, vertigo) Independent Interpretation I performed an independent interpretation of an: Plain X-Ray (My independent chest xray interpretation: Lungs: Lungs are clear bilaterally without evidence of focal consolidation, pleural effusion, or pneumothorax. Cardiac silhouette is unremarkable, no obvious mediastinal widening, no obvious bony abnormalities such as fractures. Impression: Normal chest X-r) Discharge Plan Discharge Clinical Impression: Acute maxillary sinusitis Instructions: Sinusitis (ED) Additional Instructions: Chest x-ray is reassuring, no fevers, I prescribed azithromycin 500 mg daily you can take it for 5 days if you still have symptoms advanced to 7 days, that is the double dose that usually take as you told me it is essentially the same amount as two Z-packs Follow up with the PCP please Any other issues concerns come back to the ER Prescriptions: New azithromycin 500 mg tablet 500 mg PO DAILY 7 Days Qty: 7 0RF No Action fluticasone propionate [Flonase Allergy Relief] 50 mcg/actuation spray,suspension 1 spray intranasal DAILY Qty: 16 1RF Rx Instructions: administer into each nostril levothyroxine 88 mcg tablet 88 mcg PO DAILY 90 Days Qty: 90 3RF cholecalciferol (vitamin D3) [Vitamin D3] 50 mcg (2,000 unit) Tablet 50 mcg PO DAILY aspirin [Adult Low Dose Aspirin] 81 mg tablet,delayed release (DR/EC) 81 mg PO DAILY Print Language: Sri Lankan
[2025-04-05 11:18] VITALS: BP 176/78; PULSE 62; RESP 18; TEMP 36.7; O2SAT 99
== END 2025-04-05 11:19 | disposition home or self-care (01) ==
PROVIDERS: Emergency Provider Emergency Medicine; PCP Internal Medicine
DX: R51.9 Headache, unspecified (principal); J32.0 Chronic maxillary sinusitis; R05.9 Cough, unspecified; F17.210 Nicotine dependence, cigarettes, uncomplicated; Z79.899 Other long term (current) drug therapy
CPT/HCPCS: 71046; 99283; 99284

== ENCOUNTER 2025-04-17 10:47 | Outpatient (AMB) | payer MEDICARE, SELFPAY ==
--- NOTE | 2025-04-17 11:10 | A.OFFPC_ITS ---
Vital Signs 04/17/25 11:11 Height 5 ft 9 in Weight 139 lb 4 oz BMI 20.6 BP 134/72 Blood Pressure Location Lt brachial Position Sitting Pulse 69 Pulse Source Pulse Oximeter Pulse Oximetry (%) 96 Oxygen Delivery Method Room Air Intake Visit Reasons: [facility] 04/05 Sheltered Workshop Executive Director Required: No Accompanied by: Self / Same As Patient Allergies Penicillins (PENICILLINS) Allergy (Mild, Verified 04/17/25 11:10) NAUSEA & VOMITING amoxicillin (AMOXICILLIN) Allergy (Unknown, Verified 04/17/25 11:10) RASH clindamycin (CLINDAMYCIN) Allergy (Unknown, Verified 04/17/25 11:10) RASH egg (EGG) Allergy (Unknown, Verified 04/17/25 11:10) UNKNOWN erythromycin base Allergy (Unknown, Verified 04/17/25 11:10) Unknown Influenza Virus Vaccines Allergy (Unknown, Verified 04/17/25 11:10) Unknown moxifloxacin (From Avelox) Allergy (Unknown, Verified 04/17/25 11:10) Unknown Sulfa (Sulfonamide Antibiotics) Allergy (Unknown, Verified 04/17/25 11:10) Unknown sulfamethoxazole (From BACTRIM) Allergy (Unknown, Verified 04/17/25 11:10) RASH trimethoprim (From BACTRIM) Allergy (Unknown, Verified 04/17/25 11:10) RASH doxycycline Adverse Reaction (Intermediate, Verified 04/17/25 11:10) nausea, diarrhea Tobacco use date assessed: 04/17/25 Fall risk assessment: No Falls in past year Last assessed Fall Risk: 04/17/25 Dental Screening Dental Screen Date: 04/17/25 Did you have a dental visit in the last 12 months?: No Did you have a dental problem in the last 6 months where you did not have access to dental care?: No Was dental information given to patient?: No HPI HPI Comments History of Present Illness Details 79 y/o Male patient who presents to the clinic today for EDF. He was admitted at [facility] on 04/05 for an evaluation and treatment of Maxillary Sinusitis. He was given Azithromycin 500 mg for 5 days. Reports feeling much better - has mild Headaches and sinus pressure. Pt reports elevated BP readings at home - presented Blood Pressure Log today. A review of the Log does show consistent elevated Blood Pressure readings. He noticed this happening for a week now. He does eat healthy, exercise and maintains a good Weight. He does Smoke cigarettes daily - and has been smoking for 65 years now. Discussed starting Medication for HTN - but Pt patient would like to manage this by more lifestyle changes. Advised to f/u in 2 weeks for BP check with Nurse Navigator. [facility] Medical History (Updated 04/17/25 @ 12:09 by Malorie Wells NP) Elevated blood pressure reading without diagnosis of hypertension Acute bacterial sinusitis Acoustic neuroma Screening for prostate cancer COVID-19 virus infection Tobacco abuse Hypercholesterolemia Vitamin D deficiency Hypertension BPH (benign prostatic hyperplasia) Hypothyroidism Liver cyst Cyst of pancreas Ankylosing spondylitis Allergic rhinitis Colon cancer Surgical History History of right cataract surgery History of colonoscopy Hx of colectomy Hx of hemorrhoidectomy Family History Mother Gastric cancer Father CVD (cardiovascular disease) Myocardial infarction Paternal Grandfather Myocardial infarction Brother No problems noted. Sister No problems noted. Social History Household Members: Spouse Housing: House Alcohol intake: never Comment: wine 2 x a year Patient Tobacco Use Status: Current everyday Tobacco user Tobacco use type: Cigarette Cigarette Packs Per Day: 1 Cigarettes Per Day: 17 Years Smoked: 60 e-Cigarette/Vaping Use: Never Used Second Hand Smoke Exposure: Yes Substance Use Type: Former Substance User and Marijuana service: Yes Current occupational status: retired Cognitive needs: No Hearing needs: No Vision needs: Yes (Glasses) Questionnaire PHQ-9 Over the last 2 weeks, how often have you been bothered by any of the following problems? 1. Little interest or pleasure in doing things: not at all 2. Feeling down, depressed, or hopeless: not at all 3. Trouble falling or staying asleep, or sleeping too much: not at all 4. Feeling tired or having little energy: more than half the days 5. Poor appetite or overeating: not at all 6. Feeling bad about yourself - or that you are a failure or have let yourself or your family down: not at all 7. Trouble concentrating on things, such as reading the newspaper or watching television: not at all 8. Moving or speaking so slowly that other people could have noticed. Or the opposite - being so fidgety or restless that you have been moving around a lot more than usual: not at all 9. Thoughts that you would be better off or of hurting yourself in some way: not at all Total score: 2 33431 - PHQ-9 Billing: Yes Source: Developed by Drs. Miller Wheat, Summer Osei, Blayne Rios and colleagues, with an educational geraldo from [employer]. Thrive Questionnaire Date Thrive assessed: 04/15/25 I am a: Patient What is your living situation today?: I have a steady place to live Within the past 12 months, did the food you bought not last and you didn't have the money to get more?: Never true Within the past 12 months, did you worry whether your food would run out before you got money to buy more?: Never true Do you have trouble paying for medicines?: No Do you have trouble getting transportation to medical appointments?: No Do you have trouble paying your heating and electricity bill?: No Do you have trouble taking care of your child, family member or friend?: No Do you have trouble with day-to-day activities such as bathing, preparing meals, shopping, managing finances, etc.?: No Are you currently unemployed and looking for a job?: No Are you interested in more education?: No Please select the resources that you would like help with: None Currently or been in a relationship where the following occur: I choose not to answer THRIVE Score: 0 AUDIT C Alcohol Use Questionnaire (AUDIT-C) 1. How often do you have a drink containing alcohol?: Never Total Score: 0 ZAIRE-7 AMB Questionnaire ZAIRE-7 Date ZAIRE - 7 assessed: 04/17/25 Feeling nervous, anxious, or on edge: 0 = Not at all Not being able to stop or control worryin = Not at all Worrying too much about different things: 0 = Not at all Trouble relaxin = Not at all Being so restless that it is hard to sit still: 0 = Not at all Becoming easily annoyed or irritable: 0 = Not at all Feeling afraid as if something awful might happen: 0 = Not at all Total ZAIRE-7 score (0-4 normal; 5-9 mild; 10-14 moderate; 15-21 severe): 0 Source: Developed by Drs. Miller Wheat, Summer Osei, Blayne Rios and colleagues, with an educational geraldo from [employer]. ZAIRE-7 Assessment Billing ZAIRE-7 Assessment Tool: ZAIRE-7 Assessment 08104 Review of Systems Const All systems reviewed & are unremarkable except as noted in HPI and below Physical exam (Primary Care) Vital Signs: Last Vital Signs Pulse 69 04/17/25 11:11 BP 134/72 04/17/25 11:11 Pulse Ox 96 04/17/25 11:11 Oxygen Delivery Method Room Air 04/17/25 11:11 BMI result Body Mass Index 20.6 Tobacco/Smoking Status: Tobacco use Status Tobacco use date assessed 04/17/25 04/17/25 11:15 Patient Tobacco Use Status Current everyday Tobacco 04/17/25 11:15 Tobacco use type Cigarette 04/17/25 11:15 e-Cigarette/Vaping Use Never Used 04/17/25 11:15 PHQ-9: PHQ-9 Score PHQ-9: Total score 2 04/17/25 11:15 Thrive Assessment: Date of Thrive Assessment Date Thrive assessed 04/15/25 04/17/25 11:15 Currently or been in a relationship where the following occur: I choose not to answer Const General: comfortable Nutritional Appearance: well nourished Orientation/consciousness: patient oriented x3 HENMT Ears: external ears normal and TM abnormal with fluid behind the TM bilateral General nose exam: Normal external nose present, No nasal discharge present and Abnormal mucous membranes and turbinates present pale Face and sinus: Yes normal facial exam and Yes sinuses nontender Mouth: moist mucous membranes Resp Effort & Inspection: normal respiratory effort Auscultation: clear to auscultation bilaterally Cardio Heart sounds: S1 normal heart sound present and S2 normal heart sound present Neuro General: patient oriented x3 Coding Level of Care Code Est Pt Level 4 (99419) Diagnoses Acute bacterial sinusitis J01.90; B96.89 Elevated blood pressure reading without diagnosis of hypertension R03.0 Additional Codes ZAIRE-7 Assessment Billing - ZAIRE-7 Assessment Tool: ZAIRE-7 Assessment 16725 ([id number]) PHQ-9 - 08157 - PHQ-9 Billing: Yes ([id number]) Time Spent (min) 20 Assessment & Plan Assessment & Plan (1) Acute bacterial sinusitis: Code(s): J01.90 - Acute sinusitis, unspecified; B96.89 - Other specified bacterial agents as the cause of diseases classified elsewhere Category: Medical Plan: Stable and resolved. Will continue to monitor for signs and symptoms of new infection. (2) Elevated blood pressure reading without diagnosis of hypertension: Code(s): R03.0 - Elevated blood-pressure reading, without diagnosis of hypertension Category: Medical Plan: The presented Log does show elevated Blood pressures at home. Advised DASH diet, smoke cessation, Daily exercise and avoid Stress. Will have Patient f/u in 2 weeks for BP check with Nurse Navigator. F/U with PCP.
[2025-04-17 11:11] VITALS: BP 134/72; PULSE 69; O2SAT 96; BMI 20.6
--- OUTSIDE RECORDS SUMMARY | 2025-04-17 12:21 | XMS_ITS | Clinical Summary ---
Author Organization [facility] Address [address] [place] [phone] Phone Care Team Providers Care Electromechanical Inspector Name Role Phone Addison Wilburn MD Primary Care Provider [phone] Allergies Active Allergy Reactions Criticality Noted Date [...] Office Visit [facility] at [address] [address] Tori Pedroza FNP Viral sinusitis (Primary Dx) [...] VACCINE (1 - 1-dose 75+ series) 11/08/2022 INFLUENZA VACCINE (#1) 2025 COVID-19 VACCINE (4 - 2024-2 6 season) 2025 07/08/2021, 11/04/2020, 10/14/2020 Adult Td,Tdap Booster 08/13/2028 08/13/2018 , 02/06/2012 [...] MEDICARE PART A & B Care Teams Electromechanical Inspector Relationship Specialty Start Date End Date Addison Wilburn MD [address] [place] [address] [address] [place] [phone] PCP - General Internal Medicine 04/04/25 Additional Source Comments The information contained in this document represents components of the legal health record. It is not the complete legal health record.[facility]
== END 2025-04-17 11:44 | disposition home or self-care (01) ==
LOC: HO.HMCH 10:48
PROVIDERS: PCP Internal Medicine; Visit Provider Nurse Practitioner Family
DX: J01.90 Acute sinusitis, unspecified (principal); B96.89 Other specified bacterial agents as the cause of diseases classified elsewhere; R03.0 Elevated blood-pressure reading, without diagnosis of hypertension

== ENCOUNTER → 2025-04-17 10:47 | Outpatient (BNVA) | payer MEDICARE, SELFPAY | PROVIDERS: PCP Internal Medicine; Visit Provider Nurse Practitioner Family | DX: J01.90 Acute sinusitis, unspecified (principal); B96.89 Other specified bacterial agents as the cause of diseases classified elsewhere; R03.0 Elevated blood-pressure reading, without diagnosis of hypertension; F17.200 Nicotine dependence, unspecified, uncomplicated; Z71.6 Tobacco abuse counseling | CPT/HCPCS: 96127; 99212 ==

== ENCOUNTER 2025-04-20 16:26 | Emergency (ER) | payer MEDICARE, SELFPAY ==
--- NOTE | ~2025-04-20 | XR_ITS ---
CLINICAL HISTORY: sob weakness 1 view chest x-ray Comparison: CR - XR CHEST 2V - 04/05/25 10:58 EDT Findings: The lungs are clear. Heart size is normal. No acute fracture. IMPRESSION: 1. No acute findings. This document has been electronically signed by: Lydia Bhagat MD on 04/20/2025 17:33:05
[2025-04-20 16:35] VITALS: BP 173/85; BP 180/95; PULSE 63; PULSE 75; RESP 17; TEMP 37; O2SAT 98; O2SAT 99; BMI 18.9
--- NOTE | 2025-04-20 16:46 | ECG_ITS ---
Test Reason : SOB Blood Pressure : */* mmHG Vent. Rate : 62 BPM Atrial Rate : 62 BPM P-R Int : 164 ms QRS Dur : 138 ms QT Int : 452 ms P-R-T Axes : 69 101 58 degrees QTcB Int : 458 ms Normal sinus rhythm Right bundle branch block Abnormal ECG When compared with ECG of 23-Nov-2022 09:09, No significant change was found Referred By: Generic ED Physician Electronically Signed By: ANGEL OCONNELL
[2025-04-20 16:59] VITALS: BP 173/85; PULSE 63; RESP 17; TEMP 37; O2SAT 98
[2025-04-20 17:04] VITALS: BP 155/91; PULSE 67; RESP 17; O2SAT 98
[2025-04-20 17:14] LABS: MANUAL DIFF FLAG NO
[2025-04-20 17:24] LABS: Hematocrit 43.9 % (42.0-52.0); Hemoglobin 14.9 g/dl (14.0-18.0); Imm Gran Abs Auto 0.02 X10*3/uL (0.00-0.03); Imm Gran Pct Auto 0.3 % (0.0-0.4); Lymphocytes Absolute Auto 1.3 X10*3/uL (1.2-4.9); Mean Corpuscular HGB Conc 33.9 g/dl (31.0-36.0); Mean Corpuscular Hemoglobin 31.9 pg (27.0-33.0); Mean Corpuscular Volume 94.0 fL (80.0-98.0); NRBC Abs Auto 0.000 X10*3/uL (0.0-0.012); NRBC Pct Auto 0.0 /100WBC (0.0-0.2); Platelet Count 242 X10*3/uL (160-400); Red Blood Count 4.67 X10*6/uL (4.60-5.80); White Blood Count 6.2 X10*3/uL (4.8-10.8)
[2025-04-20 17:33] LABS: Alanine Aminotransferase 21 U/L (0-40); Albumin Level 4.0 g/dL (3.5-5.0); Alkaline Phosphatase 50 U/L (39-117); Anion Gap 12 (12-20); Aspartate Amino Transferase 27 U/L (5-37); Blood Urea Nitrogen 15 mg/dL (9-16); Calcium 8.7 mg/dL (8.4-10.2); Carbon Dioxide 30 mmol/L (22-29); Chloride 105 mmol/L (96-108); Creatinine Clr Calc Pharmacy 59.6; Estimated Glomerular Filt Rate > 60; Magnesium 2.3 mg/dL (1.6-2.6); Potassium 3.6 mmol/L (3.3-5.1); Sodium 143 mmol/L (135-145); Total Protein 6.9 g/dL (6.5-8.0)
[2025-04-20 17:35] LABS: B Type Natriuretic Peptide 67 pg/mL (<100)
[2025-04-20 17:40] LABS: Troponin-I High Sensitivity 4.8 ng/L (<3.5-35.0)
[2025-04-20 18:38] VITALS: BP 166/71; PULSE 60; RESP 17; TEMP 36.9; O2SAT 95
--- NOTE | 2025-04-20 18:54 | ED.GENADULT ---
HPI - General Adult General Chief complaint: Dyspnea Stated complaint: weak, dizzy Time Seen by Provider: 04/20/25 18:54 History of Present Illness ED Provider: Akilah BECERRA narrative: The patient is a 79-year-old male who was seen here in the emergency room 2 weeks ago with symptoms of possible sinusitis. He was prescribed a course of antibiotics, azithromycin 500 mg daily for 7 days. He says that his sinusitis symptoms have improved. However the patient was noted to have high blood pressure readings when he was here in the emergency room and he has been checking his blood pressure a lot ever since he was seen at that time. He followed up at his primary care doctor's office several days ago and there was discussion about whether he should start antihypertensive medication. The decision has been deferred until there is more evidence of persistent hypertension. Since that office visit he has continued to have high blood pressure readings at home. He also feels that he is having more shortness of breath when he moves around. He describes going out to get his mail today and then barely making it back to the house from the mailbox Because of shortness of breath. This does not seem to be associated with any chest pain. No pleuritic pain. No recent fevers, sweats, chills. No cough or sputum. He says that he sleeps poorly in bed so he sleeps in a recliner. No peripheral edema. No calf pain or swelling. The patient is a smoker. No history of COPD or asthma. Related Data Home Medications ?Medication ?Instructions ?Recorded ?Confirmed cholecalciferol (vitamin D3) 50 50 mcg PO DAILY 08/05/20 02/02/25 mcg (2,000 unit) tablet (Vitamin D3) aspirin 81 mg tablet,delayed 81 mg PO DAILY 08/17/20 02/02/25 release (Adult Low Dose Aspirin) Previous Rx's ?Medication ?Instructions ?Recorded fluticasone propionate 50 1 spray intranasal DAILY #16 grams 05/09/24 mcg/actuation nasal spray,suspension (Flonase Allergy Relief) levothyroxine 88 mcg tablet 88 mcg PO DAILY 90 days #90 tabs 08/03/24 Allergies Allergy/AdvReac Type Severity Reaction Status Date / Time Penicillins (PENICILLINS) Allergy Mild NAUSEA & Verified 04/20/25 16:45 VOMITING amoxicillin (AMOXICILLIN) Allergy Unknown RASH Verified 04/20/25 16:45 clindamycin (CLINDAMYCIN) Allergy Unknown RASH Verified 04/20/25 16:45 egg (EGG) Allergy Unknown UNKNOWN Verified 04/20/25 16:45 erythromycin base Allergy Unknown Unknown Verified 04/20/25 16:45 Influenza Virus Vaccines Allergy Unknown Unknown Verified 04/20/25 16:45 moxifloxacin (From Avelox) Allergy Unknown Unknown Verified 04/20/25 16:45 Sulfa (Sulfonamide Allergy Unknown Unknown Verified 04/20/25 16:45 Antibiotics) sulfamethoxazole (From Allergy Unknown RASH Verified 04/20/25 16:45 BACTRIM) trimethoprim (From BACTRIM) Allergy Unknown RASH Verified 04/20/25 16:45 doxycycline AdvReac Intermediate nausea, Verified 04/17/25 11:10 diarrhea Review of Systems Review of Systems: Yes all other systems are reviewed and are negative [facility] Past Medical History Medical History (Updated 04/21/25 @ 00:01 by Nicolas Levy) Elevated blood pressure reading without diagnosis of hypertension Acute bacterial sinusitis Acoustic neuroma Screening for prostate cancer COVID-19 virus infection Tobacco abuse Hypercholesterolemia Vitamin D deficiency Hypertension BPH (benign prostatic hyperplasia) Hypothyroidism Liver cyst Cyst of pancreas Ankylosing spondylitis Allergic rhinitis Colon cancer Surgical History History of right cataract surgery History of colonoscopy Hx of colectomy Hx of hemorrhoidectomy Family History Family History Mother Gastric cancer Father CVD (cardiovascular disease) Myocardial infarction Paternal Grandfather Myocardial infarction Brother No problems noted. Sister No problems noted. Social History Social History Household Members: Spouse Housing: House Alcohol intake: never Comment: wine 2 x a year Patient Tobacco Use Status: Current everyday Tobacco user Tobacco use type: Cigarette Cigarette Packs Per Day: 1 Cigarettes Per Day: 17 Years Smoked: 60 e-Cigarette/Vaping Use: Never Used Second Hand Smoke Exposure: Yes Substance Use Type: Former Substance User and Marijuana Advance Directives: Yes Advance Directives Information Provided: No Advance Directives on File: No service: Yes Current occupational status: retired Cognitive needs: No Hearing needs: No Vision needs: Yes (Glasses) Physical Exam ED Vital Signs: Vital Signs - 24 hr 04/20/25 16:35 04/20/25 16:59 04/20/25 17:04 Temperature 98.6 F 98.6 F Pulse Rate 63 63 67 Respiratory Rate 17 17 17 Blood Pressure 173/85 H 173/85 H 155/91 H Pulse Oximetry 98 98 98 Oxygen Delivery Method Room Air Room Air Room Air 04/20/25 18:38 04/20/25 19:26 04/20/25 20:49 Temperature 98.4 F 97.9 F Pulse Rate 60 66 66 Respiratory Rate 17 16 16 Blood Pressure 166/71 H 129/74 Pulse Oximetry 95 99 Oxygen Delivery Method Room Air Room Air BMI result Body Mass Index 18.9 Const Other: The patient is a slim 79-year-old with the an anxious affect. He does not appear in acute distress. Orientation/consciousness: patient oriented x3 HENMT Other: The face is symmetrical. Mucous membranes moist. Eyes Other: Pupils are round equal, conjunctivae are clear, extraocular movements intact Neck Neck: Yes full ROM and Yes no JVD Resp Other: I thought there might be some very slight crackles at the bases, more so on the left. No definite wheezing. No increased work of breathing. Cardio Other: No murmur Rate: regular rate Rhythm: regular rhythm Heart sounds: S1 normal heart sound present and S2 normal heart sound present GI Other: abdomen is soft and nontender Skin Other: The skin is dry and unremarkable Neuro General: patient oriented x3, gait normal, tone normal, moves all extremities, no focal motor deficits and CN's II-XI intact bilaterally Extrem Other: There is no calf swelling or tenderness. No asymmetry. No peripheral edema. Medications Administered Discontinued Medications Generic Name Dose Route Start Last Admin Trade Name Freq PRN Reason Stop Dose Admin Albuterol/Ipratropium 3 ml 04/20/25 19:08 04/20/25 19:26 Albuterol/Iprat 2.5/0.5mg 3 Ml Ampul.Neb INHALE 04/20/25 19:09 3 ml ONCE ONE Administration Medical Decision Making Medical Decision Making [facility] Narrative: the patient is a 79-year-old male who has no history of coronary disease or definite lung disease but who was a smoker. He has been having high blood pressure readings recently. also he seems to be having episodes of shortness of breath that seemed to be related to mild exertional activities. Based on his risk factors and his complaints I was considering the possibility of congestive heart failure, an acute coronary syndrome, or pulmonary embolism. However his workup in the emergency room is unremarkable. His EKG shows an old right bundle chin block but no significant changes. He has normal troponins. He has a normal D-dimer. He has a normal chest x-ray. He is not anemic. My overall impression is that the patient is not having any acutely dangerous problem. He is hypertensive and probably needs to be on antihypertensive medication. I do not think there is any urgency to starting this however. Additionally I think there is an anxiety component to the patient's presentation. He asked for some kind of sedative medication to help him with the anxiety. I think both consideration of antihypertensive medication and any management of his anxiety should be deferred to his primary care doctor's office. He should return if worse. Lab Data 04/20/25 17:08 04/20/25 17:08 Labs: Lab Results 04/20/25 04/20/25 04/20/25 Range/Units 17:08 19:15 20:06 WBC 6.2 (4.8-10.8) X10*3/uL RBC 4.67 (4.60-5.80) X10*6/uL Hgb 14.9 (14.0-18.0) g/dl Hct 43.9 (42.0-52.0) % MCV 94.0 (80.0-98.0) fL MCH 31.9 (27.0-33.0) pg MCHC 33.9 (31.0-36.0) g/dl RDW 12.9 (11.0-16.0) % Plt Count 242 (160-400) X10*3/uL MPV 8.2 L (9.4-12.4) fL Immature Gran % (Auto) 0.3 (0.0-0.4) % Neut % (Auto) 66.6 (45-73) % Lymph % (Auto) 20.7 (20-40) % [place] % (Auto) 8.7 (2-11) % Eos % (Auto) 2.6 (0-4) % Baso % (Auto) 1.1 (0-2) % Lymph # (Auto) 1.3 (1.2-4.9) X10*3/uL [place] # (Auto) 0.5 (0.1-1.2) X10*3/uL Eos # (Auto) 0.2 (0.0-0.4) X10*3/uL Baso # (Auto) 0.1 (0.0-0.2) X10*3/uL Abs Immat Gran (auto) 0.02 (0.00-0.03) X10*3/uL Absolute Neuts (auto) 4.1 (2.0-8.3) x10*3/uL Absolute Nucleated RBC 0.000 (0.0-0.012) X10*3/uL Nucleated RBC % (auto) 0.0 (0.0-0.2) /100WBC D-Dimer High Sensitivty 152 NG/ML Sodium 143 (135-145) mmol/L Potassium 3.6 (3.3-5.1) mmol/L Chloride 105 (96-108) mmol/L Carbon Dioxide 30 H (22-29) mmol/L Anion Gap 12 (12-20) BUN 15 (9-16) mg/dL Creatinine 0.90 (0.5-1.4) mg/dL Estim Creat Clear Calc 59.6 Estimated GFR > 60 Random Glucose 110 (60-115) mg/dL Calcium 8.7 (8.4-10.2) mg/dL Magnesium 2.3 (1.6-2.6) mg/dL Total Bilirubin 0.4 (0.0-1.0) mg/dL AST 27 (5-37) U/L ALT 21 (0-40) U/L Alkaline Phosphatase 50 (39-117) U/L Troponin I High Sens 4.8 D 6.3 (<3.5-35.0) ng/L B-Natriuretic Peptide 67 (<100) pg/mL Total Protein 6.9 (6.5-8.0) g/dL Albumin 4.0 (3.5-5.0) g/dL Independent Interpretation I performed an independent interpretation of an: EKG Interpretation: EKG at 16:56 showed normal sinus rhythm at 62 beats per minute. There was an old right bundle branch block. No significant change from previous. No definite acute ischemic changes. Discharge Plan Discharge Clinical Impression: Breathlessness on exertion, Hypertension, Difficulty sleeping Patient Disposition: Home, Self-Care Additional Instructions: Your testing in the emergency room today seems reassuring. Please follow up soon with your regular doctor. Please call your doctor's office in the morning and explained that you are still having high blood pressure readings and that you had symptoms that brought you to the hospital today. If you feel significantly worse please return to the emergency room. Prescriptions: No Action fluticasone propionate [Flonase Allergy Relief] 50 mcg/actuation spray,suspension 1 spray intranasal DAILY Qty: 16 1RF Rx Instructions: administer into each nostril levothyroxine 88 mcg tablet 88 mcg PO DAILY 90 Days Qty: 90 3RF cholecalciferol (vitamin D3) [Vitamin D3] 50 mcg (2,000 unit) Tablet 50 mcg PO DAILY aspirin [Adult Low Dose Aspirin] 81 mg tablet,delayed release (DR/EC) 81 mg PO DAILY Referrals: Cosmo,Addison Cueva MD [Primary Care Provider, Internal Medicine] Interventions: ED Discharge Assessment Last Done: 04/20/25 20:49 Discharge Date/Time: 04/20/25 20:48 Print Language: Irish
[2025-04-20 19:26] VITALS: PULSE 66; RESP 16; O2SAT 98
[2025-04-20] MEDS: Albuterol/Iprat 2.5/0.5MG 3 ML AMPUL.NEB INHALE (19:26)
[2025-04-20 19:34] LABS: D Dimer High Sensitivity 152 NG/ML
[2025-04-20 20:33] LABS: Troponin-I High Sensitivity 6.3 ng/L (<3.5-35.0)
[2025-04-20 20:49] VITALS: BP 129/74; PULSE 66; RESP 16; TEMP 36.6; O2SAT 99
--- OUTSIDE RECORDS SUMMARY | 2025-04-20 21:41 | XMS_ITS | Clinical Summary ---
Author Organization [facility] Address [address] [place] [id number] Phone Care Team Providers Care Computational Chemist Name Role Phone Addison Wilburn MD Primary Care Provider [phone] Allergies Active Allergy Reactions Criticality Noted Date [...] Office Visit [facility] at [address] [address] Tori Pedroza FNP Viral sinusitis (Primary Dx) [...] file Insurance MEDICARE PART A & B [employer] SUPPLEMENT MEDICARE PART A & B [employer] SUPPLEMENT MEDICARE PART A & B [employer] SUPPLEMENT MEDICARE PART A & B [employer] SUPPLEMENT MEDICARE PART A & B [employer] MEDEX SUPPLEMENT MEDICARE PART A & B [employer] MEDEX SUPPLEMENT Member Subscriber Plan / Payer (Ef fective 2012-Present) Name:Adrián Corbett Relation to Subscriber:Self Name:Adrián Corbett Payer ID:[id number] (NAIC) Type:Indemnity Address: [facility] [id number] [place] [id number] Care Teams Computational Chemist Relationship Specialty Start Date End Date Addison Wilburn MD [address] [place] [address] [place] [id number] PCP - General Internal Medicine 04/04/25 Additional Source Comments The information contained in this document represents components of the legal health record. It is not the complete legal health record.[facility]
== END 2025-04-20 20:48 | disposition home or self-care (01) ==
PROVIDERS: Emergency Provider Emergency Medicine; PCP Internal Medicine
DX: R06.02 Shortness of breath (principal); R42 Dizziness and giddiness; I45.10 Unspecified right bundle-branch block; I10 Essential (primary) hypertension; Z79.899 Other long term (current) drug therapy
CPT/HCPCS: 36415; 71045; 80053; 83735; 83880; 84484; 85025; 85379; 93005; 94640; 99284; 99285

== ENCOUNTER → 2025-04-20 16:46 | Outpatient (BNV) | payer MEDICARE, SELFPAY | PROVIDERS: Emergency Provider Emergency Medicine; PCP Internal Medicine; Visit Provider Internal Medicine | DX: I45.10 Unspecified right bundle-branch block (principal) | CPT/HCPCS: 93010 ==

== ENCOUNTER → 2025-04-20 16:56 | Outpatient (BNV) | payer MEDICARE, SELFPAY | PROVIDERS: PCP Internal Medicine; Visit Provider Radiology Diagnostic Radiology | DX: R53.1 Weakness (principal) | CPT/HCPCS: 71045 ==

== ENCOUNTER 2025-05-19 07:38 | Outpatient (REF) | payer MEDICARE, SELFPAY ==
[2025-05-19 08:02] LABS: MANUAL DIFF FLAG NO
[2025-05-19 08:30] LABS: Hematocrit 46.3 % (42.0-52.0); Hemoglobin 15.3 g/dl (14.0-18.0); Imm Gran Abs Auto 0.01 X10*3/uL (0.00-0.03); Imm Gran Pct Auto 0.2 % (0.0-0.4); Lymphocytes Absolute Auto 1.8 X10*3/uL (1.2-4.9); Mean Corpuscular HGB Conc 33.0 g/dl (31.0-36.0); Mean Corpuscular Hemoglobin 31.9 pg (27.0-33.0); Mean Corpuscular Volume 96.5 fL (80.0-98.0); NRBC Abs Auto 0.000 X10*3/uL (0.0-0.012); NRBC Pct Auto 0.0 /100WBC (0.0-0.2); Platelet Count 244 X10*3/uL (160-400); Red Blood Count 4.80 X10*6/uL (4.60-5.80); White Blood Count 6.1 X10*3/uL (4.8-10.8)
[2025-05-19 09:18] LABS: Alanine Aminotransferase 19 U/L (0-40); Albumin Level 3.8 g/dL (3.5-5.0); Alkaline Phosphatase 48 U/L (39-117); Anion Gap 10 (12-20); Aspartate Amino Transferase 25 U/L (5-37); Blood Urea Nitrogen 19 mg/dL (9-16); Calcium 8.7 mg/dL (8.4-10.2); Carbon Dioxide 31 mmol/L (22-29); Chloride 107 mmol/L (96-108); Cholesterol 166 mg/dL (<200); Estimated Glomerular Filt Rate > 60; HDL Cholesterol 50 mg/dL (>40); Potassium 4.2 mmol/L (3.3-5.1); Sodium 144 mmol/L (135-145); Total Protein 6.6 g/dL (6.5-8.0); Triglycerides 55 mg/dL (<150)
[2025-05-19 09:25] LABS: Free T4 (Free Thyroxine) 1.40 ng/dL (0.71-1.85); Thyroid Stimulating Hormone 2.22 uIU/mL (0.32-4.0)
[2025-05-19 09:31] LABS: Folate 10.7 ng/mL (> or = 4.0); Vitamin B12 269 pg/mL (200-900)
== END 2025-05-19 07:39 | disposition home or self-care (01) ==
LOC: HO.LAB 07:38
PROVIDERS: PCP Internal Medicine; Visit Provider Internal Medicine
DX: E03.8 Other specified hypothyroidism (principal); E06.3 Autoimmune thyroiditis; E78.00 Pure hypercholesterolemia, unspecified
CPT/HCPCS: 36415; 80053; 80061; 82607; 82746; 84439; 84443; 85025

== ENCOUNTER 2025-05-22 09:41 | Outpatient (AMB) | payer MEDICARE, SELFPAY ==
--- NOTE | 2025-05-22 09:46 | A.OFFPC_ITS ---
Vital Signs 05/22/25 09:49 Height 5 ft 9 in Weight 138 lb 4 oz BMI 20.4 BP 130/80 Blood Pressure Location Lt brachial Position Sitting Pulse 58 Pulse Source Pulse Oximeter Temp 97.1 F Temp Source Temporal Artery Scan Pulse Oximetry (%) 96 Oxygen Delivery Method Room Air Intake Visit Reasons: follow up Intake Note: Patient is here to follow up on Hypothyroidism, Hypercholesterolemia. Jewel Blocker And Sawyer Required: No Corporate Quality Engineer: Present Accompanied by: Spouse Allergies Penicillins (PENICILLINS) Allergy (Mild, Verified 05/22/25 09:48) NAUSEA & VOMITING amoxicillin (AMOXICILLIN) Allergy (Unknown, Verified 05/22/25 09:48) RASH clindamycin (CLINDAMYCIN) Allergy (Unknown, Verified 05/22/25 09:48) RASH egg (EGG) Allergy (Unknown, Verified 05/22/25 09:48) UNKNOWN erythromycin base Allergy (Unknown, Verified 05/22/25 09:48) Unknown Influenza Virus Vaccines Allergy (Unknown, Verified 05/22/25 09:48) Unknown moxifloxacin (From Avelox) Allergy (Unknown, Verified 05/22/25 09:48) Unknown Sulfa (Sulfonamide Antibiotics) Allergy (Unknown, Verified 05/22/25 09:48) Unknown sulfamethoxazole (From BACTRIM) Allergy (Unknown, Verified 05/22/25 09:48) RASH trimethoprim (From BACTRIM) Allergy (Unknown, Verified 05/22/25 09:48) RASH doxycycline Adverse Reaction (Intermediate, Verified 05/22/25 09:48) nausea, diarrhea Tobacco use date assessed: 05/22/25 Fall risk assessment: No Falls in past year Last assessed Fall Risk: 05/22/25 Dental Screening Dental Screen Date: 04/17/25 [facility] Medical History (Updated 05/22/25 @ 10:18 by Addison Wilburn MD) Elevated blood pressure reading without diagnosis of hypertension Acute bacterial sinusitis Acoustic neuroma Screening for prostate cancer COVID-19 virus infection Tobacco abuse Hypercholesterolemia Vitamin D deficiency Hypertension BPH (benign prostatic hyperplasia) Hypothyroidism Liver cyst Cyst of pancreas Ankylosing spondylitis Allergic rhinitis Colon cancer Surgical History History of right cataract surgery History of colonoscopy Hx of colectomy Hx of hemorrhoidectomy Family History Mother Gastric cancer Father CVD (cardiovascular disease) Myocardial infarction Paternal Grandfather Myocardial infarction Brother No problems noted. Sister No problems noted. Social History Household Members: Spouse Housing: House Alcohol intake: never Comment: wine 2 x a year Patient Tobacco Use Status: Current everyday Tobacco user Tobacco use type: Cigarette Cigarette Packs Per Day: 1 Cigarettes Per Day: 17 Years Smoked: 60 e-Cigarette/Vaping Use: Never Used Second Hand Smoke Exposure: Yes Substance Use Type: Former Substance User and Marijuana service: Yes Current occupational status: retired Cognitive needs: No Hearing needs: No Vision needs: Yes (Glasses) Questionnaire Thrive Questionnaire Date Thrive assessed: 04/15/25 I am a: Patient What is your living situation today?: I have a steady place to live Within the past 12 months, did the food you bought not last and you didn't have the money to get more?: Never true Within the past 12 months, did you worry whether your food would run out before you got money to buy more?: Never true Do you have trouble paying for medicines?: No Do you have trouble getting transportation to medical appointments?: No Do you have trouble paying your heating and electricity bill?: No Do you have trouble taking care of your child, family member or friend?: No Do you have trouble with day-to-day activities such as bathing, preparing meals, shopping, managing finances, etc.?: No Are you currently unemployed and looking for a job?: No Are you interested in more education?: No Please select the resources that you would like help with: None Currently or been in a relationship where the following occur: I choose not to answer THRIVE Score: 0 ZAIRE-7 AMB Questionnaire ZAIRE-7 Date ZAIRE - 7 assessed: 04/17/25 Source: Developed by Drs. Miller Wheat, Summer Osei, Blayne Rios and colleagues, with an educational geraldo from [employer]. Physical exam (Primary Care) Vital Signs: Last Vital Signs Temp 97.1 F 05/22/25 09:49 Pulse 58 05/22/25 09:49 BP 130/80 05/22/25 09:49 Pulse Ox 96 05/22/25 09:49 Oxygen Delivery Method Room Air 05/22/25 09:49 BMI result Body Mass Index 20.4 Tobacco/Smoking Status: Tobacco use Status Tobacco use date assessed 05/22/25 05/22/25 09:54 Patient Tobacco Use Status Current everyday Tobacco 05/22/25 09:54 Tobacco use type Cigarette 05/22/25 09:54 e-Cigarette/Vaping Use Never Used 05/22/25 09:54 Thrive Assessment: Date of Thrive Assessment Date Thrive assessed 04/15/25 05/22/25 09:54 Currently or been in a relationship where the following occur: I choose not to answer Const General: alert; No acute distress Eyes Conjunctivae: conjunctivae normal Resp Auscultation: clear to auscultation bilaterally Cardio Rate: regular rate Rhythm: regular rhythm GI Inspection: Yes normal to inspection Extrem General: Yes normal to inspection and No edema Coding Level of Care Code Est Pt Level 4 (63747) Diagnoses Elevated blood pressure reading without diagnosis of hypertension 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; 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: 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 Tobacco abuse Z72.0 Generalized anxiety disorder F41.1 SOB (shortness of breath) on exertion R06.02 Assessment & Plan Assessment & Plan (1) Elevated blood pressure reading without diagnosis of hypertension: Code(s): R03.0 - Elevated blood-pressure reading, without diagnosis of hypertension Category: Medical Plan: Discussed concern about the blood pressure being elevated on lisinopril 5 mg once a day (2) Hypothyroidism: Code(s): E03.9 - Hypothyroidism, unspecified Category: Medical Qualifiers: Hypothyroidism type: 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 Qualified Code(s): E03.8 - Other specified hypothyroidism; E06.3 - Autoimmune thyroiditis Plan: Continue with thyroid medication (3) Tobacco abuse: Code(s): Z72.0 - Tobacco use Category: Medical Plan: Strongly advised to stop smoking! (4) Generalized anxiety disorder: Comment: Declined referral for counseling August 2021 Code(s): F41.1 - Generalized anxiety disorder Category: Medical (5) SOB (shortness of breath) on exertion: Code(s): R06.02 - Shortness of breath Category: Medical Plan History of Present Illness The patient is a 79-year-old male presenting for a follow-up visit after being last seen in January 2025 for an annual wellness check. The patient has experienced a 4-pound weight loss and has a history of smoking, which is a significant risk factor for various health conditions. He has a history of colon cancer diagnosed in 2018, for which he has declined further colonoscopy screenings. The patient has been diagnosed with hypothyroidism and hypercholesterolemia, both of which are being managed with medication. He also has generalized anxiety disorder, which may impact his overall health and well-being. Recently, the patient visited the emergency room on April 20 due to shortness of breath and was treated for sinusitis with antibiotics. He reports that his sinus symptoms have improved, but he continues to experience episodes of shortness of breath, particularly on exertion. The patient has been on lisinopril 5 mg daily for hypertension, which was prescribed after an elevated blood pressure reading of 180/99 mmHg in the emergency room. He has been advised to monitor his blood pressure and reduce salt intake to manage his condition. The patient has a family history of heart disease, with his father and grandfather both having suffered heart attacks in their 60s. He has been advised to undergo further cardiac evaluation, including a stress test and consultation with a curriculum development manager. The patient is allergic to penicillin and sulfa drugs, which has been noted in his medical records. Health Maintenance - Blood pressure monitoring and salt intake reduction advised for hypertension management - Cardiac evaluation including stress test and cardiology consultation recommended due to family history of heart disease Social History - Smoking: Patient has a history of smoking and has been advised to quit. Review of Systems - Respiratory: Reports shortness of breath on exertion. Denies shortness of breath at rest. - Cardiovascular: Reports elevated blood pressure. Denies chest pain or palpitations. - ENT: Reports sinus congestion and improvement after antibiotic treatment. Physical Exam - Respiratory: Crackles heard in the left lung base on auscultation. Results - Labs: Normal blood count, normal electrolytes, normal renal and liver function, mildly low B12, normal thyroid function. - Imaging: Chest X-ray showed no acute findings. - Echocardiogram: Normal left ventricular function with impaired relaxation noted two years ago. Plan Patient was informed and verbally consented to the use of an ambient scribe for clinic note documentation during this visit. 1. Hypertension The patient is currently on lisinopril 5 mg daily for hypertension management, following an elevated blood pressure reading of 180/99 mmHg in the emergency room. Given the persistent elevation in blood pressure, the plan includes increasing the lisinopril dose to 10 mg or considering a combination therapy with hydrochlorothiazide. The patient is advised to monitor blood pressure regularly and reduce salt intake as part of lifestyle modifications. 2. Shortness Of Breath The patient reports shortness of breath on exertion, which prompted an emergency room visit. A pulmonary function test is recommended to evaluate lung function, and a cardiology consultation is advised to rule out cardiac causes. A stress test is planned to further assess cardiac function, given the family history of heart disease. 3. Sinusitis The patient was treated with antibiotics for sinusitis, which has shown improvement in symptoms. The patient reports discontinuing Flonase due to sleep disturbances and has switched back to Claritin for allergy management. 4. Colon Cancer The patient has a history of colon cancer diagnosed in 2019 and has declined further colonoscopy screenings. Continued monitoring and discussion regarding the importance of regular screenings are advised. 5. Hypothyroidism The patient is on thyroid medication for hypothyroidism, with thyroid function tests showing normal results. Continued adherence to medication and regular monitoring of thyroid levels are recommended. 6. Hypercholesterolemia The patient is managing hypercholesterolemia with medication, and recent lab results show LDL cholesterol at 105 mg/dL, which is within the target range. Continued adherence to medication and lifestyle modifications are advised to maintain cholesterol levels. 7. Generalized Anxiety Disorder The patient has generalized anxiety disorder, which may impact his overall health and well-being. Management includes monitoring symptoms and considering therapeutic interventions if necessary. Discussion Notes During the visit, we discussed the management of the patient's hypertension, including the potential increase in lisinopril dosage or combination therapy with hydrochlorothiazide to better control blood pressure. We also addressed the patient's shortness of breath, recommending a pulmonary function test and cardiology consultation to rule out cardiac causes, with a stress test planned due to family history of heart disease. The importance of regular screenings for colon cancer was emphasized, despite the patient's decision to decline further colonoscopies. We reviewed the patient's allergies to penicillin and sulfa drugs, ensuring they are documented in his medical records. Patient Instructions - Continue taking lisinopril as prescribed and monitor blood pressure regularly. - Reduce salt intake to help manage blood pressure. - Follow up with cardiology for further evaluation and stress test. - Maintain regular screenings and discuss any concerns with your healthcare provider. - Avoid penicillin and sulfa drugs due to allergies. Orders: Orders CT chest w IV con Today R05.9 - Cough, unspecified CA stress test Today R06.02 - Shortness of breath PFT pulmonary function test Today R06.02 - Shortness of breath Blood Urea Nitrogen Today R05.9 - Cough, unspecified Creatinine Today R05.9 - Cough, unspecified Referrals Cardiology Referral R06.02 - Shortness of breath Medications: Changed From lisinopril 5 mg PO DAILY 30 tabs 2RF R06.02 - Shortness of breath To lisinopril 10 mg PO DAILY 30 tabs 3RF R06.02 - Shortness of breath
[2025-05-22 09:49] VITALS: BP 130/80; PULSE 58; TEMP 36.2; O2SAT 96; BMI 20.4
--- OUTSIDE RECORDS SUMMARY | 2025-05-22 11:07 | XMS_ITS | Clinical Summary ---
Author Organization [facility] Address [address] [place] [id number] Phone Care Team Providers Care Insecticide Expert Name Role Phone Addison Wilburn MD Primary Care Provider [phone] Allergies Active Allergy Reactions Criticality Noted Date [...] Office Visit [facility] at [address] [address] Tori Pedroza FNP Viral sinusitis (Primary Dx) [...] file Insurance MEDICARE PART A & B [employer] SUPPLEMENT MEDICARE PART A & B [employer] SUPPLEMENT MEDICARE PART A & B [employer] MED[employer] SUPPLEMENT MEDICARE PART A & B [employer] MEDEX SUPPLEMENT MEDICARE PART A & B [employer] MEDEX SUPPLEMENT MEDICARE PART A & B [employer] MEDEX SUPPLEMENT Member Subscriber Plan / Payer (Ef fective 2012-Present) Name:Adrián Corbett Relation to Subscriber:Self Name:Adrián Corbett Payer ID:[id number] (NAIC) Type:Indemnity Address: [facility] [address] [place] [id number] Care Teams Insecticide Expert Relationship Specialty Start Date End Date Addison Wilburn MD [address] [place] [address] [place] [phone] PCP - General Internal Medicine 04/04/25 Additional Source Comments The information contained in this document represents components of the legal health record. It is not the complete legal health record.[facility]
== END 2025-05-22 10:34 | disposition home or self-care (01) ==
LOC: HO.HMCH 09:42
PROVIDERS: PCP Internal Medicine; Visit Provider Internal Medicine
DX: R03.0 Elevated blood-pressure reading, without diagnosis of hypertension (principal); E03.8 Other specified hypothyroidism; E06.3 Autoimmune thyroiditis; Z72.0 Tobacco use; F41.1 Generalized anxiety disorder; R06.02 Shortness of breath

== ENCOUNTER → 2025-05-22 09:41 | Outpatient (BNVA) | payer MEDICARE, SELFPAY | PROVIDERS: PCP Internal Medicine; Visit Provider Internal Medicine | DX: R03.0 Elevated blood-pressure reading, without diagnosis of hypertension (principal); E03.8 Other specified hypothyroidism; E06.3 Autoimmune thyroiditis; F41.1 Generalized anxiety disorder; R06.02 Shortness of breath; E78.00 Pure hypercholesterolemia, unspecified; I10 Essential (primary) hypertension; J32.9 Chronic sinusitis, unspecified; Z87.891 Personal history of nicotine dependence; Z85.038 Personal history of other malignant neoplasm of large intestine; Z79.899 Other long term (current) drug therapy | CPT/HCPCS: 99212 ==

== ENCOUNTER 2025-06-19 13:14 | Emergency (ER) | payer MEDICARE, SELFPAY ==
--- OUTSIDE RECORDS SUMMARY | 2025-04-04 08:50 | XMS_ITS | Encounter Summary ---
Author Organization [facility] Address [address] [place] [id number] Phone Care Team Providers Care Loader Magazine Grinder Name Role Phone Addison Wilburn MD Primary Care Provider [phone] Reason for Visit * Reason Comments Nasal Congestion Sx x 4-5D. Headache, head pain, dizziness, sinus pain and pressure lyudmila R sided. Slight sore throat - little, not bad. Cough productive, can smell and taste. No one else sick at home. No travel. Did a COVID test yesterday. I not interested in 4 plex. Encounter Details Date Type Department Care Team (Late st Contact Info) Description 04/04/2025 9:50 AM EDT Office Visit [facility] at [address] [address] Tori Pedroza FNP [address] [place] [id number] [email or web address] Viral sinusitis (Primary Dx) Social History Tobacco Use Types Packs/Day Years Used Date Smoking Tobacco: Never Assessed Education Answer Date Recorded Are you interested in more education? Not on ashley e 04/04/2025 Are you concerned about learning? Not on file 04/04/2025 No 04/04/2025 No 04/04/2025 Digital Access Answer Date Recorded No 04/04/2025 No 04/04/2025 Reliable internet access at home? Not on file 04/04/2025 Device with a working camera? Not on file Sex and Gender Information Value Date Recorded Sex Assigned at Not on file Legal Sex Male 9:37 AM EDT Gender Identity Not on file Sexual Orientation Not on file documented as of this encounter Last Filed Vital Signs Vital Sign Reading Time Taken Comments Blood Pressure 154/78 04/04/2025 10:03 AM EDT Pulse 59 04/04/2025 10:03 AM EDT Temperature 37.1 C (98.8 F) 04/04/2025 10:03 AM EDT Respiratory Rate 19 04/04/2025 10:03 AM EDT Oxygen Saturation 98% 04/04/2025 10:03 AM EDT Inhaled Oxygen Concentration - - Weight - - Height - - Body Mass Index - - documented in this encounter Progress Notes * Yovany Tori Jose Daniel, EDUCATION LIAISON - 04/04/2025 9:50 AM EDT Images from the original note were not included. Subjective: Patient ID: Adrián Corbett is a 79 y.o. male. Pt of sinus infection. Further questioning pt states, a few days, clarifies 4-5 days. States right facial pain and pressure. No nasal drainage but coughing the post nasal drainage which is yellow/green, headache. Denies other symptoms. Pt states he thinks he is good with a zpack. States he called the pharmacy and was upset that they didn't keep a list of his allergies. Review of Systems Constitutional: Negative for fatigue and fever. HENT: Positive for congestion, postnasal drip and sinus pressure. Negative for ear pain and sore throat. Eyes: Negative for pain. Respiratory: Negative for cough and shortness of breath. Cardiovascular: Negative for chest pain. Gastrointestinal: Negative for abdominal pain, constipation, diarrhea, nausea and vomiting. Genitourinary: Negative for dysuria and flank pain. Neurological: Positive for headaches. Negative for dizziness and light-headedness. Hematological: Negative for adenopathy. All other systems reviewed and are negative. Skin: Negative for color change. Musculoskeletal: Negative for joint pain, back pain and neck pain. Vitals: 04/04/25 1003 BP: (!) 154/78 Pulse: (!) 59 Resp: 19 Temp: 37.1 ??C (98.8 ??F) SpO2: 98% Objective: Physical Exam Vitals and nursing note reviewed. Constitutional: General: He is not in acute distress. Appearance: Normal appearance. He is not ill-appearing, toxic-appearing or diaphoretic. HENT: Head: Normocephalic and atraumatic. Right Ear: Tympanic membrane, ear canal and external ear normal. There is no impacted cerumen. Left Ear: Tympanic membrane, ear canal and external ear normal. There is no impacted cerumen. Nose: Congestion present. No rhinorrhea. Mouth/Throat: Mouth: Mucous membranes are moist. Pharynx: Oropharynx is clear. No oropharyngeal exudate or posterior oropharyngeal erythema. Eyes: General: Right eye: No discharge. Left eye: No discharge. Extraocular Movements: Extraocular movements intact. Conjunctiva/sclera: Conjunctivae normal. Pupils: Pupils are equal, round, and reactive to light. Cardiovascular: Rate and Rhythm: Normal rate and regular rhythm. Pulses: Normal pulses. Heart sounds: Normal heart sounds. Pulmonary: Effort: Pulmonary effort is normal. No respiratory distress. Breath sounds: Normal breath sounds. No stridor. No wheezing, rhonchi or rales. Chest: Chest wall: No tenderness. Abdominal: Palpations: Abdomen is soft. Musculoskeletal: General: Normal range of motion. Cervical back: Normal range of motion and neck supple. No tenderness. Lymphadenopathy: Cervical: No cervical adenopathy. Skin: General: Skin is warm and dry. Coloration: Skin is not pale. Findings: No erythema or rash. Neurological: General: No focal deficit present. Mental Status: He is alert and oriented to person, place, and time. Mental status is at baseline. Cranial Nerves: No cranial nerve deficit. Sensory: No sensory deficit. Motor: No weakness. Gait: Gait normal. Psychiatric: Mood and Affect: Mood normal. Behavior: Behavior normal. Thought Content: Thought content normal. Judgment: Judgment normal. No results found for this visit on 04/04/25. Procedure: Procedures Assessment/Plan: Diagnosis Plan 1. Viral sinusitis Assessment and Plan: Well appearing pt in nad complaining of sinus pressure, facial pain for 4-5 days. Some headache. States no nasal drainage but coughing up post nasal drainage. Pt complained pharmacy didn't have a list of his allergies but thinks he can take zpack. Advised wehave a list of allergies in EPIC. Advised n/v/d is common side effect of all antibiotics and explained why. Not allergies. Pt and insisted on allergies and states he can't take those. Advised good news that he doesn't need an antibiotic and explained why. Pt states he does need an antibiotic. stating he doesn't come in unless he needs to, states wasting their time. Attempt toexplain viral vs. Bacterial, pt and walked out. * Christian Foley MD - 04/04/2025 9:50 AM EDT Subject Line: Provider Attestation I have reviewed the notes, assessments, and/or procedures performed by SANDRA Harris, I concur with her/his documentation of Adrián Chelle. documented in this encounter Plan of Treatment Not on file documented as of this encounter Visit Diagnoses Diagnosis Viral sinusitis- Primary documented in this encounter Care Teams Loader Magazine Grinder Relationship Specialty Start Date End Date Po, Addison Echols MD [address] [place] [address] [place] [phone] PCP - General Internal Medicine 04/04/25 documented as of this encounter Additional Source Comments The information contained in this document represents components of the legal health record. It is not the complete legal health record.[facility]
--- NOTE | ~2025-06-19 | XR_ITS ---
EXAMINATION: XR CHEST CLINICAL INFORMATION: bradycardic, palpitations COMPARISON: X-ray 04/20/2025 TECHNIQUE: 2 views of the chest were obtained. FINDINGS: The cardiomediastinal silhouette is within normal limits. The lungs are well expanded. There is no focal consolidation, edema, or effusion. No pneumothorax. No acute osseous abnormality. XR/XR chest 2V IMPRESSION: No acute findings Electronically signed by: David Mays MD 06/19/2025 02:15 PM EST
--- NOTE | 2025-06-19 13:43 | ED.GENADULT ---
HPI - General Adult General Stated complaint: Cardiac issues Related Data Home Medications ?Medication ?Instructions ?Recorded ?Confirmed cholecalciferol (vitamin D3) 50 50 mcg PO DAILY 08/05/20 02/02/25 mcg (2,000 unit) tablet (Vitamin D3) aspirin 81 mg tablet,delayed 81 mg PO DAILY 08/17/20 02/02/25 release (Adult Low Dose Aspirin) Previous Rx's ?Medication ?Instructions ?Recorded levothyroxine 88 mcg tablet 88 mcg PO DAILY 90 days #90 tabs 08/03/24 lisinopril 20 mg tablet 20 mg PO DAILY #90 tabs 06/09/25 Allergies Allergy/AdvReac Type Severity Reaction Status Date / Time Penicillins (PENICILLINS) Allergy Mild NAUSEA & Verified 05/22/25 09:48 VOMITING amoxicillin (AMOXICILLIN) Allergy Unknown RASH Verified 05/22/25 09:48 clindamycin (CLINDAMYCIN) Allergy Unknown RASH Verified 05/22/25 09:48 egg (EGG) Allergy Unknown UNKNOWN Verified 05/22/25 09:48 erythromycin base Allergy Unknown Unknown Verified 05/22/25 09:48 Influenza Virus Vaccines Allergy Unknown Unknown Verified 05/22/25 09:48 moxifloxacin (From Avelox) Allergy Unknown Unknown Verified 05/22/25 09:48 Sulfa (Sulfonamide Allergy Unknown Unknown Verified 05/22/25 09:48 Antibiotics) sulfamethoxazole (From Allergy Unknown RASH Verified 05/22/25 09:48 BACTRIM) trimethoprim (From BACTRIM) Allergy Unknown RASH Verified 05/22/25 09:48 doxycycline AdvReac Intermediate nausea, Verified 05/22/25 09:48 diarrhea PMFSH Past Medical History Medical History (Updated 05/22/25 @ 10:18 by Addison Wilburn MD) Elevated blood pressure reading without diagnosis of hypertension Acute bacterial sinusitis Acoustic neuroma Screening for prostate cancer COVID-19 virus infection Tobacco abuse Hypercholesterolemia Vitamin D deficiency Hypertension BPH (benign prostatic hyperplasia) Hypothyroidism Liver cyst Cyst of pancreas Ankylosing spondylitis Allergic rhinitis Colon cancer Surgical History History of right cataract surgery History of colonoscopy Hx of colectomy Hx of hemorrhoidectomy Family History Family History Mother Gastric cancer Father CVD (cardiovascular disease) Myocardial infarction Paternal Grandfather Myocardial infarction Brother No problems noted. Sister No problems noted. Social History Social History Household Members: Spouse Housing: House Alcohol intake: never Comment: wine 2 x a year Patient Tobacco Use Status: Current everyday Tobacco user Tobacco use type: Cigarette Cigarette Packs Per Day: 1 Cigarettes Per Day: 17 Years Smoked: 60 e-Cigarette/Vaping Use: Never Used Second Hand Smoke Exposure: Yes Substance Use Type: Former Substance User and Marijuana service: Yes Current occupational status: retired Cognitive needs: No Hearing needs: No Vision needs: Yes (Glasses) Course Course Course Narrative: This is a rapid medical exam performed by Delgado Torres NP: Additional HPI, ROS, PE not included below will be deferred to primary provider. Patient is a 79y/o M presenting to the ED with complaint of low HR at home, as low as [address] Wilburn and was referred to the ED. Complains of palpitations, fatigue. has documentations of HR/BPs from today and prior with her. Plan: EKG, labs, CXR Discharge Plan Discharge Prescriptions: No Action levothyroxine 88 mcg tablet 88 mcg PO DAILY 90 Days Qty: 90 3RF lisinopril 20 mg tablet 20 mg PO DAILY Qty: 90 3RF cholecalciferol (vitamin D3) [Vitamin D3] 50 mcg (2,000 unit) Tablet 50 mcg PO DAILY aspirin [Adult Low Dose Aspirin] 81 mg tablet,delayed release (DR/EC) 81 mg PO DAILY Print Language: Syriac
[2025-06-19 13:45] VITALS: BP 171/78; PULSE 67; RESP 18; TEMP 36.8; O2SAT 98; BMI 19.6
--- NOTE | 2025-06-19 13:46 | ECG_ITS ---
Test Reason : chest pain Blood Pressure : */* mmHG Vent. Rate : 62 BPM Atrial Rate : 62 BPM P-R Int : 152 ms QRS Dur : 142 ms QT Int : 444 ms P-R-T Axes : 75 105 50 degrees QTcB Int : 450 ms Normal sinus rhythm Right bundle branch block Abnormal ECG When compared with ECG of 20-Apr-2025 16:56, No significant change was found Referred By: Angelika Torres Electronically Signed By: SUSHILA MATSON MD
[2025-06-19 14:13] VITALS: BP 141/57; PULSE 64; RESP 13; O2SAT 97
[2025-06-19 14:26] LABS: MANUAL DIFF FLAG NO
--- NOTE | 2025-06-19 14:29 | PC.NURSE ---
Pt roomed and placed on full monitor- VSS NAD HR 70's with freq PVCs.
[2025-06-19 14:30] LABS: Hematocrit 43.1 % (42.0-52.0); Hemoglobin 14.6 g/dl (14.0-18.0); Imm Gran Abs Auto 0.02 X10*3/uL (0.00-0.03); Imm Gran Pct Auto 0.3 % (0.0-0.4); Lymphocytes Absolute Auto 0.9 X10*3/uL (1.2-4.9); Mean Corpuscular HGB Conc 33.9 g/dl (31.0-36.0); Mean Corpuscular Hemoglobin 32.3 pg (27.0-33.0); Mean Corpuscular Volume 95.4 fL (80.0-98.0); NRBC Abs Auto 0.000 X10*3/uL (0.0-0.012); NRBC Pct Auto 0.0 /100WBC (0.0-0.2); Platelet Count 224 X10*3/uL (160-400); Red Blood Count 4.52 X10*6/uL (4.60-5.80); White Blood Count 6.5 X10*3/uL (4.8-10.8)
[2025-06-19 14:43] LABS: INTERNATIONAL NORM RATIO 1.0 (0.9-1.1); Prothrombin Time 12.7 SEC (11.2-13.5)
[2025-06-19 14:45] LABS: Alanine Aminotransferase 19 U/L (0-40); Albumin Level 3.7 g/dL (3.5-5.0); Alkaline Phosphatase 48 U/L (39-117); Anion Gap 8 (12-20); Aspartate Amino Transferase 26 U/L (5-37); Blood Urea Nitrogen 21 mg/dL (9-16); Calcium 8.7 mg/dL (8.4-10.2); Carbon Dioxide 29 mmol/L (22-29); Chloride 109 mmol/L (96-108); Creatinine Clr Calc Pharmacy 62.8; Estimated Glomerular Filt Rate > 60; Magnesium 2.2 mg/dL (1.6-2.6); Potassium 3.6 mmol/L (3.3-5.1); Sodium 142 mmol/L (135-145); Total Protein 6.4 g/dL (6.5-8.0)
--- NOTE | 2025-06-19 14:46 | ED_ITS ---
HPI - General Adult General Chief complaint: Arrhythmia/Palpitations Stated complaint: Cardiac issues Time Seen by Provider: 06/19/25 14:07 Source: patient Mode of arrival: ambulatory Limitations: no limitations History of Present Illness HPI narrative: This is a 79 years old the patient presented to the emergency department stating that his pulse is low, he denies any syncope any chest pain he stated that he feels weak. He has a history of hypertension and hypothyroidism Onset (ago): day(s) (1) Radiation: non-radiation Severity: mild Relieving factors: none Exacerbating factors: none Associated symptoms: denies other symptoms Related Data Home Medications ?Medication ?Instructions ?Recorded ?Confirmed cholecalciferol (vitamin D3) 50 50 mcg PO DAILY 02/02/25 mcg (2,000 unit) tablet (Vitamin D3) aspirin 81 mg tablet,delayed 81 mg PO DAILY 08/17/20 0 02/02/25 release (Adult Low Dose Aspirin) Previous Rx's ?Medication ?Instructions ?Recorded levothyroxine 88 mcg tablet 88 mcg PO DAILY 90 days #9 0 tabs 08/03/24 lisinopril 20 mg tablet 20 mg PO DAILY #90 tabs 11/28 Allergies Allergy/AdvReac Type Severity Reaction Status Date / Time Penicillins (PENICILLINS) Allergy Mild NAUSEA & Verified 06/19/25 13:49 VOMITING amoxicillin (AMOXICILLIN) Allergy Unknown RASH Verified 06/19/25 13:49 clindamycin (CLINDAMYCIN) Allergy Unknown RASH Verified 06/19/25 13:49 egg (EGG) Allergy Unknown UNKNOWN Verified 06/19/25 13:49 erythromycin base Allergy Unknown Unknown Verified 06/19/25 13:49 Influenza Virus Vaccines Allergy Unknown Unknown Verified 06/19/25 13:49 moxifloxacin (From Avelox) Allergy Unknown Unknown Verified 06/19/25 13:49 Sulfa (Sulfonamide Allergy Unknown Unknown Verified 06/19/25 13:49 Antibiotics) sulfamethoxazole (From Allergy Unknown RASH Verified 06/19/25 13:49 BACTRIM) trimethoprim (From BACTRIM) Allergy Unknown RASH Verified 06/19/25 13:49 doxycycline AdvReac Intermediate nausea, Verified 05/22/25 09:48 diarrhea Review of Systems 2 Constitutional: Constitutional: Reports no additional constitutional complaints Cardiovascular: Cardiovascular: Reports no additional cardiovascular complaints Neurologic: Reports system reviewed and no additional complaints, except as documented PMFSH Past Medical History Attestation statement: The following information was validated with the patient. Medical History Elevated blood pressure reading without diagnosis of hypertension Acute bacterial sinusitis Acoustic neuroma Screening for prostate cancer COVID-19 virus infection Tobacco abuse Hypercholesterolemia Vitamin D deficiency Hypertension BPH (benign prostatic hyperplasia) Hypothyroidism Liver cyst Cyst of pancreas Ankylosing spondylitis Allergic rhinitis Colon cancer Surgical History History of right cataract surgery History of colonoscopy Hx of colectomy Hx of hemorrhoidectomy Family History Family History Mother Gastric cancer Father CVD (cardiovascular disease) Myocardial infarction Paternal Grandfather Myocardial infarction Brother No problems noted. Sister No problems noted. Social History Social History Household Members: Spouse Housing: House Alcohol intake: never Comment: wine 2 x a year Patient Tobacco Use Status: Current everyday Tobacco user Tobacco use type: Cigarette Cigarette Packs Per Day: 1 Cigarettes Per Day: 17 Years Smoked: 60 e-Cigarette/Vaping Use: Never Used Second Hand Smoke Exposure: Yes Substance Use Type: Former Substance User and Marijuana Advance Directives: Yes Advance Directives Information Provided: Yes Advance Directives on File: No service: Yes Current occupational status: retired Cognitive needs: No Hearing needs: No Vision needs: Yes (Glasses) Physical Exam ED Exam Exam: No acute distress comfortable in the stretcher Vital Signs: Vital Signs - 24 hr 06/19/25 13:45 06/19/25 14:13 06/19/25 16:59 Temperature 98.3 F 98.1 F Pulse Rate 67 64 57 Respiratory Rate 18 13 19 Blood Pressure 171/78 H 141/57 H 122/68 Pulse Oximetry 98 97 99 Oxygen Delivery Method Room Air Room Air Room Air 06/19/25 17:50 Temperature 98.1 F Pulse Rate 57 Respiratory Rate 19 Blood Pressure 122/68 Pulse Oximetry 99 Oxygen Delivery Method Room Air BMI result Body Mass Index 19.6 Const General: cooperative Nutritional Appearance: average body habitus Orientation/consciousness: patient oriented x3 Limitations: no limitations HENMT Head: Yes normal to inspection General nose exam: Normal external nose present Face and sinus: Yes normal facial exam Mouth: Normal oral and palatal mucosa present Throat: Yes posterior oropharynx normal Neck Neck: Yes normal visual inspection Chest Chest palpation & inspection: normal inspection of the chest Resp Effort & Inspection: normal respiratory effort Cardio Jugular venous distension: no JVD Rate: regular rate Rhythm: regular rhythm GI Inspection: Yes normal to inspection General: Yes no CVA tenderness Back/Spine/Pelvis Back: no CVA tenderness Skin General skin exam: no rashes or lesions noted Lesions: no lesions Rashes: no rashes Neuro General: patient oriented x3 Cranial nerves: Yes CN's II-XII intact bilaterally Course Course Course Narrative: This is a rapid medical exam performed by Delgado Torres NP: Additional HPI, ROS, PE not included below will be deferred to primary provider. Patient is a 79y/o M presenting to the ED with complaint of low HR at home, as low as [address] Wilburn and was referred to the ED. Complains of palpitations, fatigue. has documentations of HR/BPs from today and prior with her. Plan: EKG, labs, CXR Reevaluation(s) Reevaluation #1: Remained stable,off shift now signed out to Dr Arboleda Time: 16:18 Medications Administered Discontinued Medications Generic Name Dose Route Start Last Admin Trade Name Freq PRN Reason Stop Dose Admin Sodium Chloride 1,000 mls @ 999 mls/hr 06/19/25 15:00 06/19/25 16:57 Ns IVCONT 06/19/25 16:00 Infused .Q1H1M KATALINA Infusion Medical Decision Making Medical Decision Making [facility] Narrative: Patient was signed out to me pending further observation for any episode bradycardia. Patient has no further episodes of heart rate dropping into the 30s. Blood pressure remained stable. Patient is able to ambulate. Troponin is negative. TSH was normal. Chest x-ray is clear Patient's EKG shows right bundle branch block. Similar to his previous EKG in the past. No sign of complete heart block on his EKG. We will plan to discharge patient with a close outpatient follow up with primary care doctor and cardiology's. Referral to Cardiology will be provided the patient. States he does have a cardiology appointment back in November. However I discussed with the patient that lupillo call the cardiology office to see if they could have a sooner appointment for him. He agrees and understands this plan. Encouraged the patient to talk to primary care doctor about a Holter monitor. Differential Diagnosis Bradycardia, complete heart block, heart block, ACS Lab Data MDM Lab Attestation statement: I reviewed the patient's lab results. 06/19/25 14:20 06/19/25 14:20 Labs: Lab Results 06/19/25 Range/Units 14:20 WBC 6.5 (4.8-10.8) X10*3/uL RBC 4.52 L (4.60-5.80) X10*6/uL Hgb 14.6 (14.0-18.0) g/dl Hct 43.1 (42.0-52.0) % MCV 95.4 (80.0-98.0) fL MCH 32.3 (27.0-33.0) pg MCHC 33.9 (31.0-36.0) g/dl RDW 13.2 (11.0-16.0) % Plt Count 224 (160-400) X10*3/uL MPV 8.4 L (9.4-12.4) fL Immature Gran % (Auto) 0.3 (0.0-0.4) % Neut % (Auto) 76.5 H (45-73) % Lymph % (Auto) 13.3 L (20-40) % [place] % (Auto) 5.6 (2-11) % Eos % (Auto) 3.4 (0-4) % Baso % (Auto) 0.9 (0-2) % Lymph # (Auto) 0.9 L (1.2-4.9) X10*3/uL [place] # (Auto) 0.4 (0.1-1.2) X10*3/uL Eos # (Auto) 0.2 (0.0-0.4) X10*3/uL Baso # (Auto) 0.1 (0.0-0.2) X10*3/uL Abs Immat Gran (auto) 0.02 (0.00-0.03) X10*3/uL Absolute Neuts (auto) 5.0 (2.0-8.3) x10*3/uL Absolute Nucleated RBC 0.000 (0.0-0.012) X10*3/uL Nucleated RBC % (auto) 0.0 (0.0-0.2) /100WBC PT 12.7 (11.2-13.5) SEC INR 1.0 (0.9-1.1) Sodium 142 (135-145) mmol/L Potassium 3.6 (3.3-5.1) mmol/L Chloride 109 H (96-108) mmol/L Carbon Dioxide 29 (22-29) mmol/L Anion Gap 8 L (12-20) BUN 21 H (9-16) mg/dL Creatinine 0.84 (0.5-1.4) mg/dL Estim Creat Clear Calc 62.8 Estimated GFR > 60 Random Glucose 175 H (60-115) mg/dL Calcium 8.7 (8.4-10.2) mg/dL Magnesium 2.2 (1.6-2.6) mg/dL Total Bilirubin 0.4 (0.0-1.0) mg/dL AST 26 (5-37) U/L ALT 19 (0-40) U/L Alkaline Phosphatase 48 (39-117) U/L Troponin I High Sens 3.3 (<3.5-35.0) ng/L NT-Pro-B Natriuret Pep 266.4 (<300) pg/mL Total Protein 6.4 L (6.5-8.0) g/dL Albumin 3.7 (3.5-5.0) g/dL TSH 2.03 (0.32-4.0) uIU/mL Influenza Type A (PCR) NEGATIVE (Negative) Influenza Type B (PCR) NEGATIVE (Negative) RSV RNA Qual (PCR) NEGATIVE (Negative) SARS-CoV-2 RNA (RT-PCR) NEGATIVE (Negative) Independent Interpretation I performed an independent interpretation of an: Plain X-Ray Discharge Plan Discharge Clinical Impression: Bradycardia Patient Disposition: Home, Self-Care Instructions: Bradycardia (ED) Additional Instructions: Follow up with your primary care doctor about your bradycardia. You can also call the cardiology clinic to see if they can move your appointment up. Let them know you were seen in the ER recently and we want a closer follow up. Ask whether a holter monitor is appropriate for you that can help detect cardiac arrythmia Prescriptions: No Action levothyroxine 88 mcg tablet 88 mcg PO DAILY 90 Days Qty: 90 3RF lisinopril 20 mg tablet 20 mg PO DAILY Qty: 90 3RF cholecalciferol (vitamin D3) [Vitamin D3] 50 mcg (2,000 unit) Tablet 50 mcg PO DAILY aspirin [Adult Low Dose Aspirin] 81 mg tablet,delayed release (DR/EC) 81 mg PO DAILY Referrals: [facility] [place] [facility] [Provider Group] Interventions: ED Discharge Assessment Last Done: 06/19/25 17:50 Discharge Date/Time: 06/19/25 17:51 Print Language: Anguill[place]
[2025-06-19 14:54] LABS: NT Pro B Type Natriuretic Pept 266.4 pg/mL (<300); Troponin-I High Sensitivity 3.3 ng/L (<3.5-35.0)
[2025-06-19 15:14] LABS: Resp Syncy Virus RNA Qual PCR NEGATIVE (Negative); SARS COV2 PCR INHOUSE NEGATIVE (Negative)
[2025-06-19 16:59] VITALS: BP 122/68; PULSE 57; RESP 19; TEMP 36.7; O2SAT 99
[2025-06-19 17:50] VITALS: BP 122/68; PULSE 57; RESP 19; TEMP 36.7; O2SAT 99
--- OUTSIDE RECORDS SUMMARY | 2025-06-19 20:52 | XMS_ITS | Clinical Summary ---
Author Organization [facility] Address [address] [place] [id number] Phone Care Team Providers Care Aircraft Sales Representative Name Role Phone Addison Wilburn MD Primary Care Provider [phone] Allergies Active Allergy Reactions Criticality Noted Date [...] Office Visit [facility] at [address] [address] Tori Pedroza FNP Viral sinusitis (Primary Dx) [...] on patient's age to complete this topic IPV VACCINES Aged Out No longer eligi ble based on patient's age to complete this topic MENINGOCOCCAL VACCINES (ACWY) Aged Out No longer eligible based on patient's age to complete this topic MENINGOCOCCAL VACCINES (B) Aged Out N o longer eligible based on patient's age to complete this topic Medical Devices Not on file Insurance MEDICARE PART A & B [employer] MEDEX SUPPLEMENT MEDICARE PART A & B [employer] MEDEX SUPPLEMENT MEDICARE PART A & B [employer] MEDEX SUPPLEMENT MEDICARE PART A & B [employer] MEDEX SUPPLEMENT MEDICARE PART A & B [employer] MEDEX SUPPLEMENT MEDICARE PART A & B [employer] MEDEX SUPPLEMENT Care Teams Aircraft Sales Representative Relationship Specialty Start Date End Date Addison Wilburn MD [address] [place] [address] PCP - General Internal Medicine 04/04/25 Additional Source Comments The information contained in this document represents components of the legal health record. It is not the complete legal health record.[facility]
== END 2025-06-19 17:51 | disposition home or self-care (01) ==
PROVIDERS: Registered Nurse Emergency; Emergency Provider Student in an Organized Health Care Education/Training Program; PCP Internal Medicine
DX: R00.1 Bradycardia, unspecified (principal); R53.1 Weakness; R00.2 Palpitations; Z03.818 Encounter for observation for suspected exposure to other biological agents ruled out
CPT/HCPCS: 36415; 71046; 80053; 83735; 83880; 84443; 84484; 85025; 85610; 87637; 93005; 96360; 99284

== ENCOUNTER → 2025-06-19 13:46 | Outpatient (BNV) | payer MEDICARE, SELFPAY | PROVIDERS: Emergency Provider Emergency Medicine; PCP Internal Medicine; Visit Provider Internal Medicine Cardiovascular Disease | DX: I45.10 Unspecified right bundle-branch block (principal) | CPT/HCPCS: 93010 ==

== ENCOUNTER → 2025-06-19 13:46 | Outpatient (BNV) | payer MEDICARE, SELFPAY | PROVIDERS: Emergency Provider Emergency Medicine; PCP Internal Medicine; Visit Provider Radiology Diagnostic Ultrasound | DX: R00.1 Bradycardia, unspecified (principal); R00.2 Palpitations | CPT/HCPCS: 71046 ==

== ENCOUNTER 2025-06-26 14:38 | Outpatient (AMB) | payer MEDICARE, SELFPAY ==
[2025-06-26 14:43] VITALS: BP 160/88; PULSE 65; TEMP 36.1; O2SAT 97; BMI 20.2
--- NOTE | 2025-06-26 14:43 | A.OFFPC_ITS ---
Vital Signs 06/26/25 14:43 Height 5 ft 9 in Weight 137 lb 2 oz BMI 20.2 BP 160/88 H Blood Pressure Location Lt brachial Position Sitting Pulse 65 Pulse Source Pulse Oximeter Temp 97.0 F Temp Source Temporal Artery Scan Pulse Oximetry (%) 97 Oxygen Delivery Method Room Air Intake Visit Reasons: [facility] [place] 06/19 Cardiac Issues Accompanied by: Spouse Allergies Penicillins (PENICILLINS) Allergy (Mild, Verified 06/26/25 14:46) NAUSEA & VOMITING amoxicillin (AMOXICILLIN) Allergy (Unknown, Verified 06/26/25 14:46) RASH clindamycin (CLINDAMYCIN) Allergy (Unknown, Verified 06/26/25 14:46) RASH egg (EGG) Allergy (Unknown, Verified 06/26/25 14:46) UNKNOWN erythromycin base Allergy (Unknown, Verified 06/26/25 14:46) Unknown Influenza Virus Vaccines Allergy (Unknown, Verified 06/26/25 14:46) Unknown moxifloxacin (From Avelox) Allergy (Unknown, Verified 06/26/25 14:46) Unknown Sulfa (Sulfonamide Antibiotics) Allergy (Unknown, Verified 06/26/25 14:46) Unknown sulfamethoxazole (From BACTRIM) Allergy (Unknown, Verified 06/26/25 14:46) RASH trimethoprim (From BACTRIM) Allergy (Unknown, Verified 06/26/25 14:46) RASH doxycycline Adverse Reaction (Intermediate, Verified 06/26/25 14:46) nausea, diarrhea Medication List - Last Reconciled 06/26/25 by Addison Wilburn MD aspirin (Adult Low Dose Aspirin) 81 mg PO DAILY cholecalciferol (vitamin D3) (Vitamin D3) 50 mcg PO DAILY levothyroxine 88 mcg PO DAILY 90 days lisinopril 20 mg PO DAILY Tobacco use date assessed: 06/26/25 Fall risk assessment: No Falls in past year Last assessed Fall Risk: 06/26/25 Dental Screening Dental Screen Date: 06/26/25 Did you have a dental visit in the last 12 months?: No Did you have a dental problem in the last 6 months where you did not have access to dental care?: No Was dental information given to patient?: No HPI HPI Comments History of Present Illness Details History of Present Illness The patient is a 79-year-old individual presenting for a follow-up visit after an ER visit for palpitations. The patient's past medical history is significant for colon cancer in 2019, hypothyroidism, and hypercholesterolemia. The patient is also a smoker. The patient was seen in the ER on June 19 for palpitations, at which time the patient also felt weak. The patient was diagnosed with bradycardia and a right bundle branch block. An EKG performed at that time showed no significant change from a previous EKG. Blood work, including a complete blood count, electrolytes, and renal and liver function tests, was normal. The patient reports experiencing daily palpitations, which are usually worse in the mornings but have occurred all day today. At home, the patient noted a heart rate in the 30s and has been feeling weak, lousy, and short of breath with palpitations. These symptoms began after a 7-day course of azithromycin for a si nus infection, which has since resolved. The patient has been on lisinopril 20 mg for hypertension since June 11 but continues to have high blood pressure readings. A heart ultrasound from 2022 showed good heart power but poor relaxation. Health Maintenance - Smoking cessation: The patient was str ongly advised to stop smoking. Social History - Substance Use: The patient is a [employer] smoker. - Substance Use: The patient denies caff eine and alcohol use. - Diet: The patient is advised to drink enough water. Results - ER Labs (Jun 19): Normal blood count w ith no anemia, normal electrolytes, normal renal function, and normal liver function. - EKG (Jun 19): Showed bradycardia and a right bundle branch block, with no significant change from previous EKG. - Echocardiogram (2022): Showed good hea rt power (ejection fraction) but impaired relaxation. [facility] Medical History Elevated blood pressure reading without diagnosis of hypertension Acute bacterial sinusitis Acoustic neuroma Screening for prostate cancer COVID-19 virus infection Tobacco abuse Hypercholesterolemia Vitamin D deficiency Hypertension BPH (benign prostatic hyperplasia) Hypothyroidism Liver cyst Cyst of pancreas Ankylosing spondylitis Allergic rhinitis Colon cancer Surgical History History of right cataract surgery History of colonoscopy Hx of colectomy Hx of hemorrhoidectomy Family History Mother Gastric cancer Father CVD (cardiovascular disease) Myocardial infarction Paternal Grandfather Myocardial infarction Brother No problems noted. Sister No problems noted. Social History Household Members: Spouse Housing: House Alcohol intake: never Comment: wine 2 x a year Patient Tobacco Use Status: Current everyday Tobacco user Tobacco use type: Cigarette Cigarette Packs Per Day: 1 Cigarettes Per Day: 17 Years Smoked: 60 Packs Per Year: 60 Packs per year/per ci.00 e-Cigarette/Vaping Use: Never Used Second Hand Smoke Exposure: Yes Substance Use Type: Former Substance User and Marijuana service: Yes Current occupational status: retired Cognitive needs: No Hearing needs: No Vision needs: Yes (Glasses) Questionnaire PHQ-9 Over the last 2 weeks, how often have you been bothered by any of the following problems? 1. Little interest or pleasure in doing things: not at all 2. Feeling down, depressed, or hopeless: not at all 3. Trouble falling or staying asleep, or sleeping too much: not at all 4. Feeling tired or having little energy: more than half the days 5. Poor appetite or overeating: not at all 6. Feeling bad about yourself - or that you are a failure or have let yourself or your family down: not at all 7. Trouble concentrating on things, such as reading the newspaper or watching television: not at all 8. Moving or speaking so slowly that other people could have noticed. Or the opposite - being so fidgety or restless that you have been moving around a lot more than usual: not at all 9. Thoughts that you would be better off or of hurting yourself in some way: not at all Total score: 2 Source: Developed by Drs. Miller Wheat, Summer Osei, Blayne Rios and colleagues, with an educational geraldo from [employer]. Thrive Questionnaire Date Thrive assessed: 04/15/25 I am a: Patient What is your living situation today?: I have a steady place to live Within the past 12 months, did the food you bought not last and you didn't have the money to get more?: Never true Within the past 12 months, did you worry whether your food would run out before you got money to buy more?: Never true Do you have trouble paying for medicines?: No Do you have trouble getting transportation to medical appointments?: No Do you have trouble paying your heating and electricity bill?: No Do you have trouble taking care of your child, family member or friend?: No Do you have trouble with day-to-day activities such as bathing, preparing meals, shopping, managing finances, etc.?: No Are you currently unemployed and looking for a job?: No Are you interested in more education?: No Please select the resources that you would like help with: None Currently or been in a relationship where the following occur: I choose not to answer THRIVE Score: 0 AUDIT C Alcohol Use Questionnaire (AUDIT-C) 1. How often do you have a drink containing alcohol?: Never 3. How often do you have six or more drinks on one occasion?: Never Total Score: 0 ZAIRE-7 AMB Questionnaire ZAIRE-7 Date ZAIRE - 7 assessed: 04/17/25 Feeling nervous, anxious, or on edge: 0 = Not at all Not being able to stop or control worryin = Not at all Worrying too much about different things: 0 = Not at all Trouble relaxin = Not at all Being so restless that it is hard to sit still: 0 = Not at all Becoming easily annoyed or irritable: 0 = Not at all Feeling afraid as if something awful might happen: 0 = Not at all Total ZAIRE-7 score (0-4 normal; 5-9 mild; 10-14 moderate; 15-21 severe): 0 Source: Developed by Drs. Miller Wheat, Summer Osei, Blayne Rios and colleagues, with an educational geraldo from [employer]. Review of Systems Narrative Review of Systems - Constitutional: Reports weakness and feeling generally unwell. - Cardiovascular: Reports daily palpitations, sometimes lasting all day and worse in the morning. - Cardiovascular: Denies syncope. - Respiratory: Reports shortness of breath. - Musculoskeletal: Reports usual rib and back pain. - Genitourinary: Denies dysuria. - Gastrointestinal: Reports normal bowel movements. Physical exam (Primary Care) Vital Signs: Last Vital Signs Temp 97.0 F 06/26/25 14:43 Pulse 65 06/26/25 14:43 BP 160/88 H 06/26/25 14:43 Pulse Ox 97 06/26/25 14:43 Oxygen Delivery Method Room Air 06/26/25 14:43 BMI result Body Mass Index 20.2 Tobacco/Smoking Status: Tobacco use Status Tobacco use date assessed 06/26/25 06/26/25 14:47 Patient Tobacco Use Status Current everyday Tobacco 06/26/25 14:47 Tobacco use type Cigarette 06/26/25 14:47 e-Cigarette/Vaping Use Never Used 06/26/25 14:47 PHQ-9: PHQ-9 Score PHQ-9: Total score 2 06/26/25 14:47 Thrive Assessment: Date of Thrive Assessment Date Thrive assessed 04/15/25 06/26/25 14:47 Currently or been in a relationship where the following occur: I choose not to answer Narrative Physical Exam - Cardiovascular: Heart auscultation reveals a regular rate and rhythm. - Musculoskeletal: Decreased range of motion noted in one arm, which does not straighten fully. - Abdomen: Non-tender to palpation. 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 Tobacco abuse Z72.0 Bradycardia R00.1 Palpitations R00.2 Assessment & Plan Assessment & Plan (1) Hypothyroidism: Code(s): E03.9 - Hypothyroidism, unspecified Category: Medical Qualifiers: Hypothyroidism type: 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 Qualified Code(s): E03.8 - Other specified hypothyroidism; E06.3 - Autoimmune thyroiditis Plan: Continue with present thyroid medication (2) Tobacco abuse: Code(s): Z72.0 - Tobacco use Category: Medical Plan: Patient is strongly advised to stop smoking (3) Bradycardia: Code(s): R00.1 - Bradycardia, unspecified Category: Medical Plan: Discussed with the patient the options of getting Cardiology/pacemaker (4) Palpitations: Code(s): R00.2 - Palpitations Category: Medical Plan Plan Patient was informed and verbally consented to the use of an ambient scribe for clinic note documentation during this visit. 1. Bradycardia And Palpitations The patient reports daily palpitations and has documented low heart rates in the 30s associated with weakness. A recent ER visit confirmed bradycardia and a right bundle branch block, possibly aggravated by a recent course of azithromycin. To evaluate the correlation between symptoms and arrhythmia, a Holter monitor has been ordered. A follow-up heart ultrasound has also been ordered to reassess cardiac function. The patient has an upcoming cardiology appointment on July 14 and a stress test scheduled for Sunday. The possibility of needing a pacemaker was discussed if the Holter monitoring confirms symptomatic bradycardia. 2. Essential Hypertension The patient's blood pressure remains elevated despite being on lisinopril 20 mg for approximately two weeks. It is too soon to adjust the medication, so the patient will continue the current dose for now. Medication options, including increasing lisinopril to 30 or 40 mg or adding amlodipine, were discussed as future steps if blood pressure is not controlled. Lisinopril is preferred as it does not affect the heart rate. 3. Hypothyroidism The patient will continue with the present thyroid medication. 4. Tobacco Use The patient was strongly advised to stop smoking. Discussion Notes I discussed the patient's symptoms of palpitations and weakness, noting the diagnosis of bradycardia and right bundle branch block from the recent ER visit. I explained that the recent use of azithromycin could have aggravated an underlying heart conduction issue. I have ordered a Holter monitor to correlate symptoms with heart rhythm and a follow-up echocardiogram. I explained the importance of documenting symptoms during the Holter test. We discussed that if symptomatic bradycardia is con firmed, a pacemaker may be indicated, and I briefly described the procedure as being done under the skin and not a major operation. Regarding the patient's hypertension, I explained that we will continue lisinopril 20 mg for now as it has only been two weeks, and we will monitor blood pressure trends before making changes. I discussed future options, including increasing the lisinopril dose or adding a second agent like amlodipine. I strongly advised the patient to stop smoking. We confirmed the follow-up appointment on July 22, by which time the cardiology workup should be underway. Patient Instructions - Continue taking your lisinopril 20 mg daily for your blood pressure. - Continue taking your thyroid medication as prescribed. - You must stop smoking. This is very important for your heart health. - We have ordered a Holter monitor (a portable heart monitor) and another ultrasound of your heart. Please complete these tests as scheduled. - When wearing the Holter monitor, it is very important to write down the exact time you feel any symptoms like palpitations or weakness. - Keep your appointments for the stress test and your visit with the weatherization specialist (Cardiology) on July 14. - Make sure to drink plenty of water. - We will see you again for a follow-up on July 22. Orders: Orders ECG 3 day holter monitor Today R00.2 - Palpitations CA echo transthoracic complete Today R00.2 - Palpitations
--- OUTSIDE RECORDS SUMMARY | 2025-06-26 14:56 | XMS_ITS | Clinical Summary ---
Author Organization [facility] Address [address] [place] [id number] Phone Care Team Providers Care Plant Machinist Name Role Phone Addsion Wilburn MD Primary Care Provider [phone] Allergies Active Allergy Reactions Criticality Noted Date [...] Office Visit [facility] at [address] [address] Tori Pedroza FNP Viral sinusitis (Primary Dx) [...] file Insurance MEDICARE PART A & B [employer] CROSS MEDEX SUPPLEMENT MEDICARE PART A & B [employer] CROSS MEDEX SUPPLEMENT MEDICARE PART A & B [employer] MEDEX SUPPLEMENT MEDICARE PART A & B [employer] MEDEX SUPPLEMENT MEDICARE PART A & B [employer] MEDEX SUPPLEMENT MEDICARE PART A & B [employer] MEDEX SUPPLEMENT Member Subscriber Plan / Payer (Ef fective 2012-Present) Name:Adrián Corbett Relation to Subscriber:Self Name:Adrián Corbett Payer ID:[id number] (NAIC) Type:Indemnity Address: [facility] [id number] [place] [id number] Care Teams Plant Machinist Relationship Specialty Start Date End Date Addison Wilburn MD [address] [place] [address] [place] [address] [phone] PCP - General Internal Medicine 04/04/25 Additional Source Comments The information contained in this document represents components of the legal health record. It is not the complete legal health record.[facility]
== END 2025-06-26 15:07 | disposition home or self-care (01) ==
LOC: HO.HMCH 14:39
PROVIDERS: PCP Internal Medicine; Visit Provider Internal Medicine
DX: E03.8 Other specified hypothyroidism (principal); E06.3 Autoimmune thyroiditis; Z72.0 Tobacco use; R00.1 Bradycardia, unspecified; R00.2 Palpitations

== ENCOUNTER → 2025-06-26 14:38 | Outpatient (BNVA) | payer MEDICARE, SELFPAY | PROVIDERS: PCP Internal Medicine; Visit Provider Internal Medicine | DX: E03.8 Other specified hypothyroidism (principal); E06.3 Autoimmune thyroiditis; R00.1 Bradycardia, unspecified; R00.2 Palpitations; F17.200 Nicotine dependence, unspecified, uncomplicated; Z71.6 Tobacco abuse counseling | CPT/HCPCS: 99212 ==

== ENCOUNTER → 2025-06-29 08:10 | Outpatient (REF) | payer MEDICARE, SELFPAY ==
--- OUTSIDE RECORDS SUMMARY | 2025-06-29 08:19 | XMS_ITS | Clinical Summary ---
Author Organization [facility] Address [address] [place] [address] Phone Care Team Providers Care Room Manager Name Role Phone Addison Wilburn MD Primary Care Provider [phone] Allergies Active Allergy Reactions Criticality Noted Date [...] Office Visit [facility] at [address] [address] Tori Pedroza FNP Viral sinusitis (Primary Dx) [...] file Insurance MEDICARE PART A & B [employer] CROSS MEDEX SUPPLEMENT MEDICARE PART A & B [employer] CROSS MEDEX SUPPLEMENT MEDICARE PART A & B [employer] MEDEX SUPPLEMENT MEDICARE PART A & B [employer] MEDEX SUPPLEMENT MEDICARE PART A & B [employer] MEDEX SUPPLEMENT MEDICARE PART A & B [employer] MEDEX SUPPLEMENT Member Subscriber Plan / Payer (Ef fective 2012-Present) Name:Adrián Corbett Relation to Subscriber:Self Name:Adrián Corbett Payer ID:[id number] (NAIC) Type:Indemnity Address: [facility] [id number] [place] [id number] Care Teams Room Manager Relationship Specialty Start Date End Date Addison Wilburn MD [address] [place] [address] [place] [address] [phone] PCP - General Internal Medicine 04/04/25 Additional Source Comments The information contained in this document represents components of the legal health record. It is not the complete legal health record.[facility]
--- NOTE | 2025-06-29 08:37 | CA_ITS ---
Acquisition Time: 2025-06-29 08:16:54 Total Exercise Time: 00:05:00 Test Indications: SOB Medications: SEE H&P Protocol: TERESITA Max HR: 118 BPM 82% of Pred: 143 BPM Max BP: 148/78 mmHG Max Work Load: 7.0 METS Exercise stress test with exercise 5 mins of Teresita Protocol, achieving 83% MPHR, with reports of SOB, no chest pain, mild dizziness at baseline (pt reports from right ear issues) that got slightly worse with exercise, with very frequent PVCs, rare couplets- pt reports palpuiations with it - mildly better with exercise, with normotenisve response to exercise. Without any EKG changes meeting criteria for ischemia. In recovery, dizziness improved to baseline and SOB resolved. Recommend a holter study. Test reviewed with Dr. Ramey. Referred By: Addison Wilburn Electronically Signed By: Oleg Rose
[2025-06-29 09:24] LABS: Blood Urea Nitrogen 19 mg/dL (9-16); Estimated Glomerular Filt Rate > 60
== END ==
LOC: HO.CARD 08:10
PROVIDERS: PCP Internal Medicine; Visit Provider Internal Medicine
DX: R06.02 Shortness of breath (principal); R05.9 Cough, unspecified
CPT/HCPCS: 36415; 82565; 84520; 93017

== ENCOUNTER → 2025-06-29 08:37 | Outpatient (BNV) | payer MEDICARE, SELFPAY | PROVIDERS: PCP Internal Medicine | DX: I49.3 Ventricular premature depolarization (principal); R06.02 Shortness of breath | CPT/HCPCS: 93016; 93018 ==

== ENCOUNTER 2025-07-06 13:46 | Outpatient (REF) | payer MEDICARE, SELFPAY ==
--- NOTE | ~2025-07-06 | CT_ITS ---
EXAMINATION: CT CHEST WITH CONTRAST CLINICAL INFORMATION: Cough unspecified. COMPARISON: None available. TECHNIQUE: Multidetector volumetric CT imaging of the chest was obtained after the administration of 50 mL of Omnipaque 350 intravenous contrast without immediate adverse reactions. Axial MIP volume rendering provided. Sagittal and coronal reformatted images were obtained. This CT examination was performed using dose optimization techniques as appropriate, variously including the following: *Automated exposure control *Adjustment of mA and/or kV according to patient size (this includes techniques or standardized protocols for targeted exams where dose is matched to indication/reason for exam; i.e. extremities or head) *Use of iterative reconstruction technique FINDINGS: LUNGS: 2 mm nodule anterior right upper lobe (series 5, image 87). 4 mm pleural-based nodule posterior right upper lobe (series 5, image 30). Mild centrilobular emphysema. Mild linear atelectasis or scarring in both lower lobes. Lungs otherwise clear without consolidation or abnormal opacity. Small airways normal without thickening. No bronchiectasis. No pleural or pericardial effusion. Central airways are widely patent. MEDIASTINUM: Normal thyroid. No mass or abnormal lymphadenopathy in the mediastinum. Aorta is mildly calcified and normal in caliber. Great vessels branch normally and are patent. The left vertebral artery takes its origin from the aortic arch. The pulmonary trunk is normal in size. The heart size is normal. There is no pericardial effusion. The esophagus is normal. PLEURA: There is no pleural effusion. No pleural mass or thickening. AXILLA/CHEST WALL: No mass or abnormal lymph nodes. UPPER ABDOMEN: Cortical thinning of the right kidney, partially imaged. There are subcentimeter cysts in the liver. There is moderate calcification of the aorta, without aneurysm. OSSEOUS STRUCTURES: There is no suspicious lytic or blastic bone lesion present. There are anterior flowing fused syndesmophytes throughout the thoracic spine, somewhat suggestive of ankylosing spondylitis. There is a bone island in the right aspect of T11. There are degenerative changes in the right greater than left sternoclavicular joints. CT/CT chest w IV con IMPRESSION: 1. The lungs are grossly clear. There is mild centrilobular emphysema. There is no evidence of active lung disease. 2. There are two micronodules present measuring up to 4 mm. In a high-risk patient only, follow-up in one year is suggested. 3. There are no effusions. 4. There are anterior flowing diffuse syndesmophytes throughout the thoracic spine, somewhat suggestive of ankylosing spondylitis. Electronically signed by: Perez Ribera MD 07/06/2025 04:06 PM [facility]
[2025-07-06] MEDS: iohexoL 350 MG/ML 100 ML INFUS..BTL 65 ML IV (15:47)
--- OUTSIDE RECORDS SUMMARY | 2025-07-06 17:17 | XMS_ITS | Clinical Summary ---
Author Organization [facility] Address [address] [place] [address] Phone Care Team Providers Care Chief Clerk Name Role Phone Addison Wilburn MD Primary Care Provider [phone] Allergies Active Allergy Reactions Criticality Noted Date Comments Amoxicillin 04/04/2025 Azithromycin Nausea and/or Vomiting 04/04/2025 Clindamycin 04/04/2025 Doxycycline Hyclate Nausea and/or Vomiting 03/08 Moxifloxacin 04/04/2025 Sulfa (Sulfonamide Antibiotics) Nausea and/or Vomiting 04/04/2025 Medications levothyroxine (SYNTHROID, LEVOTHROID) 88 MCG tablet Take 1 tablet by mouth every morning. 01/23/2025 Active Active Problems No known active problems Social History Tobacco Use Types Packs/Day Years [...] 11/08/2022 INFLUENZA VACCINE (#1) 2025 COVID-19 VACCINE ( - 2024-2 6 season) 2025 07/08/2021, 11/04/2020, [...] file Insurance MEDICARE PART A & B [employer] CROSS MEDEX SUPPLEMENT MEDICARE PART A & B [employer] CROSS MEDEX SUPPLEMENT MEDICARE PART A & B [employer] CROSS MEDEX SUPPLEMENT MEDICARE PART A & B [employer] CROSS MEDEX SUPPLEMENT MEDICARE PART A & B [employer] MEDEX SUPPLEMENT MEDICARE PART A & B [employer] MEDEX SUPPLEMENT Care Teams Chief Clerk Relationship Specialty Start Date End Date Adidson Wilburn MD [address] [place] [phone] PCP - General Internal Medicine 04/04/25 Additional Source Comments The information contained in this document represents components of the legal health record. It is not the complete legal health record.[facility]
== END 2025-07-06 13:47 | disposition home or self-care (01) ==
LOC: HO.CT 13:46
PROVIDERS: PCP Internal Medicine; Visit Provider Internal Medicine
DX: R05.9 Cough, unspecified (principal)
CPT/HCPCS: 71260; Q9967

== ENCOUNTER → 2025-07-06 13:48 | Outpatient (BNV) | payer MEDICARE, SELFPAY | PROVIDERS: PCP Internal Medicine; Visit Provider Radiology Diagnostic Radiology | DX: R91.8 Other nonspecific abnormal finding of lung field (principal) | CPT/HCPCS: 71260 ==

== ENCOUNTER 2025-07-14 14:15 | Outpatient (AMB) | payer MEDICARE, SELFPAY ==
--- NOTE | 2025-07-14 14:33 | A.OFFVIS_ITS ---
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 Allergies Penicillins (PENICILLINS) Allergy (Mild, Verified 07/14/25 14:38) NAUSEA & VOMITING amoxicillin (AMOXICILLIN) Allergy (Unknown, Verified 07/14/25 14:38) RASH clindamycin (CLINDAMYCIN) Allergy (Unknown, Verified 07/14/25 14:38) RASH egg (EGG) Allergy (Unknown, Verified 07/14/25 14:38) UNKNOWN erythromycin base Allergy (Unknown, Verified 07/14/25 14:38) Unknown Influenza Virus Vaccines Allergy (Unknown, Verified 07/14/25 14:38) Unknown moxifloxacin (From Avelox) Allergy (Unknown, Verified 07/14/25 14:38) Unknown Sulfa (Sulfonamide Antibiotics) Allergy (Unknown, Verified 07/14/25 14:38) Unknown sulfamethoxazole (From BACTRIM) Allergy (Unknown, Verified 07/14/25 14:38) RASH trimethoprim (From BACTRIM) Allergy (Unknown, Verified 07/14/25 14:38) RASH doxycycline Adverse Reaction (Intermediate, Verified 07/14/25 14:38) nausea, diarrhea Medication List - Last Reconciled 07/14/25 by KATHY Warren aspirin (Adult Low Dose Aspirin) 81 mg PO DAILY cholecalciferol (vitamin D3) (Vitamin D3) 50 mcg PO DAILY levothyroxine 88 mcg PO DAILY 90 days lisinopril 20 mg PO DAILY HPI 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 He reports episodes of a low pulse rate, measured at home as low as 36 bpm, using his automated blood pressure cuff. His PCP referred him to the emergency room for the bradycardia, where his workup showed no significant abnormalities. An EKG in the ER showed sinus rhythm with a right bundle branch block, his troponin was negative, TSH was normal, and a chest x- ray showed no active disease. His pulse rate was in the 50s to 60s at that time. Today states that he does get episodes of strong palpitations, which began after taking azithromycin (Z-Zuhair) for a sinus infection in late March. The palpitations occurred mostly in the morning and have diminished over the last few days.He believes this antibiotic is the cause of his low heart rate as well. He has experienced associated symptoms of weakness and dizziness at random times. The palpitations occurred mostly in the morning and have diminished over the last few days. He does not get chest discomfort, shortness of breath and reports good activity tolerance. Past medical history is significant for hypertension, hypothyroidism, and a recent diagnosis of emphysema. He has no prior history of heart problems. Family history is notable for his father who from a myocardial infarction at age 64 and a younger brother who has two stents. All of his siblings have hypertension. He denies caffeine or alcohol use. His physical activity has been limited for the past couple of months, but he normally exercises three times a week. His current medications include aspirin, lisinopril, levothyroxine, and vitamin D. [facility] Medical History Elevated blood pressure reading without diagnosis of hypertension Acute bacterial sinusitis Acoustic neuroma Screening for prostate cancer COVID-19 virus infection Tobacco abuse Hypercholesterolemia Vitamin D deficiency Hypertension BPH (benign prostatic hyperplasia) Hypothyroidism Liver cyst Cyst of pancreas Ankylosing spondylitis Allergic rhinitis Colon cancer Surgical History History of right cataract surgery History of colonoscopy Hx of colectomy Hx of hemorrhoidectomy Family History Mother Gastric cancer Father CVD (cardiovascular disease) Myocardial infarction Paternal Grandfather Myocardial infarction Brother No problems noted. Sister No problems noted. Social History Household Members: Spouse Housing: House Alcohol intake: never Comment: wine 2 x a year Patient Tobacco Use Status: Current everyday Tobacco user Tobacco use type: Cigarette Cigarette Packs Per Day: 1 Cigarettes Per Day: 17 Years Smoked: 60 e-Cigarette/Vaping Use: Never Used Second Hand Smoke Exposure: Yes Substance Use Type: Former Substance User and Marijuana service: Yes Current occupational status: retired Cognitive needs: No Hearing needs: No Vision needs: Yes (Glasses) Review of Systems Const All systems reviewed & are unremarkable except as noted in HPI and below ENT Reports dizziness Card Details: heart palpitations. Concerns for slow heart rate Denies chest pain, Denies chest pain at rest, Denies chest pain with activity, Denies rapid heart rate, Denies pedal edema, Denies edema, Denies leg edema, Denies lightheadedness, Denies palpitations, Denies dyspnea, Denies dyspnea on exertion and Denies orthopnea Resp Denies cough, Denies dyspnea and Denies dyspnea on exertion GI Denies hematochezia and Denies change in stool character Musc Denies abnormal gait, Reports limited range of motion, Reports muscle cramps, Denies muscle weakness, Denies numbness, Denies radiating pain into limb, Denies stiffness and Denies tingling Neuro Denies abnormal gait, Reports dizziness, Denies numbness and Denies tingling Endo Denies palpitations Physical Exam Vital Signs: Last Vital Signs Pulse 58 07/14/25 14:34 BP 138/72 07/14/25 14:34 BMI result Body Mass Index 20.6 Const General: cooperative, healthy appearing, comfortable and no acute distress Orientation/consciousness: patient oriented x3 Neck Neck: Yes normal visual inspection Resp Effort & Inspection: normal respiratory effort Auscultation: clear to auscultation bilaterally, no crackles, no rales, no rhonchi and no wheezes Cardio Rate: regular rate Rhythm: regular rhythm Heart sounds: S1 normal heart sound present, S2 normal heart sound present, no gallops, no murmurs and no rubs Neuro General: patient oriented x3 Extrem General: Yes normal to inspection Psych Appearance: grossly normal Mental Status: mental status grossly normal Speech and movement: Normal speech and movement present Assessment & Plan Assessment & Plan (1) Bradycardia: Code(s): R00.1 - Bradycardia, unspecified Category: Medical Plan: Recent ER evaluation for low heart rate as seen on his automated blood pressure cuff from home. ER evaluation without significant findings. He did undergo an outpatient exercise stress test on 06/29/2025 which showed exercise 5 minutes achieving 83% MPHR with very frequent PVCs, patient reported palpitations without EKG changes of ischemia. It is possible that his frequent PVCs made a false reading of his pulse on the automated blood pressure cuff. Reviewed this with him. There has been no documented significant bradycardia at this time. Holter monitors pending. Echocardiogram pending. Reviewed reduction in caffeinated beverages. Continue activity as tolerated. Call if change in symptoms with the emergency care if needed. Cardiology follow-up in 2 months, sooner if needed. (2) Palpitations: Code(s): R00.2 - Palpitations Category: Medical Plan: As above. (3) PVC (premature ventricular contraction): Code(s): I49.3 - Ventricular premature depolarization Category: Medical Plan: Very frequent PVCs seen during exercise stress test. Holter monitor pending to assess frequency. Echo pending to assess for structural disease, reduced EF. (4) Hospital discharge follow-up: Code(s): Z51.89 - Encounter for other specified aftercare Category: Medical Plan: Hospital notes reviewed. Plan I explained to the patient that his reported low heart rate of 36 bpm may be an inaccurate reading from his blood pressure cuff due to the presence of frequent premature ventricular contractions (PVCs), which are extra heartbeats. I advised that his sensation of palpitations is likely the feeling of these PVCs. We discussed his recent stress test, noting it was reassuring because his heart rate increased appropriately and showed no signs of strain or ischemia. I confirmed the plan for him to undergo a 3-day Holter monitor and an echocardiogram on August 14, which will provide more definitive information on his heart's rhythm and function. I let him know that I will look for these results once they are completed. and we will attempt to schedule an earlier follow-up with Dr. Ornelas, which is currently set for November. I reassured him that the treatment is needed for PVCs, it is typically with medication, not a pacemaker. Patient Instructions: - Please proceed with your scheduled 3-day heart monitor and echocardiogram on August 14. - The very low heart rate readings on your home machine may not be accurate because of extra heartbeats you are having. - Your palpitations are likely the feeling of these extra heartbeats, which we call PVCs. - Continue taking all your current medications as prescribed. - We will review the results of your tests after they are completed and will try to arrange an earlier follow-up appointment for you. - If you experience symptoms such as feeling dizzy, lightheaded, or weak, you should seek medical attention. Patient was informed and verbally consented to the use of an ambient scribe for clinic note documentation during this visit. Visit time spent on chart review, interview, assessment, orders, documentation. Coding Level of Care Code New Pt Level 4 (81085) Complex visit Add On G2211 Diagnoses Bradycardia R00.1 Palpitations R00.2 PVC (premature ventricular contraction) I49.3 Hospital discharge follow-up Z51.89 Time Spent (min) 32
[2025-07-14 14:34] VITALS: BP 138/72; PULSE 58; BMI 20.6
--- OUTSIDE RECORDS SUMMARY | 2025-07-14 20:15 | XMS_ITS | Clinical Summary ---
Author Organization [facility] Address [address] [place] [id number] Phone Care Team Providers Care Cyber Security Architect Name Role Phone Addison Wilburn MD Primary Care Provider [phone] Allergies Active Allergy Reactions Criticality Noted Date [...] MEDEX SUPPLEMENT MEDICARE PART A & B Reds10 CROSS MEDEX SUPPLEMENT MEDICARE PART A & B Reds10 CROSS MEDEX SUPPLEMENT MEDICARE PART A & B Reds10 CROSS MEDEX SUPPLEMENT MEDICARE PART A & B Loosecubes MEDEX SUPPLEMENT MEDICARE PART A & B Loosecubes MEDEX SUPPLEMENT Care Teams Cyber Security Architect Relationship Specialty Start Date End Date Addison Wilburn MD [address] [place] [address] [id number] PCP - General Internal Medicine 04/04/25 Additional Source Comments The information contained in this document represents components of the legal health record. It is not the complete legal health record.[facility]
== END 2025-07-14 15:15 | disposition home or self-care (01) ==
LOC: HO.HCS 14:16
PROVIDERS: PCP Internal Medicine; Visit Provider Nurse Practitioner Family
DX: R00.1 Bradycardia, unspecified (principal); R00.2 Palpitations; I49.3 Ventricular premature depolarization; Z51.89 Encounter for other specified aftercare
CPT/HCPCS: 99204; G2211

== ENCOUNTER → 2025-07-14 14:15 | Outpatient (BNVA) | payer MEDICARE, SELFPAY | PROVIDERS: PCP Internal Medicine; Visit Provider Nurse Practitioner Family | DX: R00.1 Bradycardia, unspecified (principal); R00.2 Palpitations; I45.10 Unspecified right bundle-branch block; I49.3 Ventricular premature depolarization; I10 Essential (primary) hypertension; E03.9 Hypothyroidism, unspecified; J43.9 Emphysema, unspecified; Z51.89 Encounter for other specified aftercare | CPT/HCPCS: 99202 ==

== ENCOUNTER 2025-07-22 08:47 | Outpatient (AMB) | payer MEDICARE, SELFPAY ==
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
[2025-07-22 08:55] VITALS: BP 150/60; PULSE 67; TEMP 36.3; O2SAT 97; BMI 20.3
== END 2025-07-22 09:34 | disposition home or self-care (01) ==
LOC: HO.HMCH 08:48
PROVIDERS: PCP Internal Medicine; Visit Provider Internal Medicine
DX: E03.8 Other specified hypothyroidism (principal); E06.3 Autoimmune thyroiditis; E78.00 Pure hypercholesterolemia, unspecified; R00.1 Bradycardia, unspecified; Z72.0 Tobacco use; R91.1 Solitary pulmonary nodule; I10 Essential (primary) hypertension

== ENCOUNTER → 2025-07-22 08:47 | Outpatient (BNVA) | payer MEDICARE, SELFPAY | PROVIDERS: PCP Internal Medicine; Visit Provider Internal Medicine | DX: I10 Essential (primary) hypertension (principal); E03.8 Other specified hypothyroidism; E06.3 Autoimmune thyroiditis; E78.00 Pure hypercholesterolemia, unspecified; R00.1 Bradycardia, unspecified; R91.1 Solitary pulmonary nodule; Z72.0 Tobacco use; Z79.899 Other long term (current) drug therapy | CPT/HCPCS: 99212 ==

== ENCOUNTER 2025-08-05 09:57 | Emergency (ER) | payer MEDICARE, SELFPAY ==
--- NOTE | ~2025-08-05 | XR_ITS ---
EXAMINATION: XR CHEST 2 VIEWS HISTORY: cough/sob COMPARISON: Comparison is made with the prior examination dated 06/19/2025. FINDINGS: PA and lateral views of the chest are submitted. The lungs are expanded and clear. There is no pleural effusion, pneumothorax, or pulmonary vascular congestion. The heart is normal in size. There is degenerative disc disease of the spine. XR/XR chest 2V IMPRESSION: No acute cardiopulmonary abnormality. Electronically signed by: Miller Mann MD 08/05/2025 10:57 AM [place]
[2025-08-05 10:06] VITALS: BP 127/58; PULSE 77; RESP 18; TEMP 36.7; O2SAT 94; BMI 19.8
--- NOTE | 2025-08-05 10:08 | ED_ITS ---
HPI - URI/Sore Throat General Chief Complaint: General Medical Stated Complaint: Flu, sent by pcp Related Data Home Medications ?Medication ?Instructions ?Recorded ?Confirmed cholecalciferol (vitamin D3) 50 50 mcg PO DAILY 07/22/25 mcg (2,000 unit) tablet (Vitamin D3) aspirin 81 mg tablet,delayed 81 mg PO DAILY 08/17/20 1 09/22/24 release (Adult Low Dose Aspirin) Previous Rx's ?Medication ?Instructions ?Recorded lisinopril 20 mg tablet 20 mg PO DAILY #90 tabs 11/0 11/28 amlodipine 5 mg tablet 5 mg PO DAILY #30 tabs 07/22 levothyroxine 88 mcg tablet 88 mcg PO DAILY 90 days #9 0 tabs 07/22/25 Allergies Allergy/AdvReac Type Severity Reaction Status Date / Time Penicillins (PENICILLINS) Allergy Mild NAUSEA & Verified 08/05/25 10:09 VOMITING amoxicillin (AMOXICILLIN) Allergy Unknown RASH Verified 08/05/25 10:09 clindamycin (CLINDAMYCIN) Allergy Unknown RASH Verified 08/05/25 10:09 egg (EGG) Allergy Unknown UNKNOWN Verified 08/05/25 10:09 erythromycin base Allergy Unknown Unknown Verified 08/05/25 10:09 Influenza Virus Vaccines Allergy Unknown Unknown Verified 08/05/25 10:09 moxifloxacin (From Avelox) Allergy Unknown Unknown Verified 08/05/25 10:09 Sulfa (Sulfonamide Allergy Unknown Unknown Verified 08/05/25 10:09 Antibiotics) sulfamethoxazole (From Allergy Unknown RASH Verified 08/05/25 10:09 BACTRIM) trimethoprim (From BACTRIM) Allergy Unknown RASH Verified 08/05/25 10:09 doxycycline AdvReac Intermediate nausea, Verified 08/05/25 10:09 diarrhea PMFSH Past Medical History Medical History (Updated 08/06/25 @ 00:00 by Background Dabjorn) Elevated blood pressure reading without diagnosis of hypertension Acute bacterial sinusitis Acoustic neuroma Screening for prostate cancer COVID-19 virus infection Tobacco abuse Hypercholesterolemia Vitamin D deficiency Hypertension BPH (benign prostatic hyperplasia) Hypothyroidism Liver cyst Cyst of pancreas Ankylosing spondylitis Allergic rhinitis Colon cancer Surgical History History of right cataract surgery History of colonoscopy Hx of colectomy Hx of hemorrhoidectomy Family History Family History Mother Gastric cancer Father CVD (cardiovascular disease) Myocardial infarction Paternal Grandfather Myocardial infarction Brother No problems noted. Sister No problems noted. Social History Social History Household Members: Spouse Housing: House Alcohol intake: never Comment: wine 2 x a year Patient Tobacco Use Status: Current everyday Tobacco user Tobacco use type: Cigarette Cigarette Packs Per Day: 1 Cigarettes Per Day: 12 Years Smoked: 60 e-Cigarette/Vaping Use: Never Used Second Hand Smoke Exposure: Yes Substance Use Type: Former Substance User and Marijuana service: Yes Current occupational status: retired Cognitive needs: No Hearing needs: No Vision needs: Yes (Glasses) Physical Exam 2 Vital Signs: Vital Signs: Last Vital Signs Temp 98.0 F 08/05/25 10:06 Pulse 77 08/05/25 10:06 Resp 18 08/05/25 10:06 BP 127/58 L 08/05/25 10:06 Pulse Ox 94 08/05/25 10:06 O2 Del Method Room Air 08/05/25 10:06 BMI result Body Mass Index 19.8 Course Course Course Narrative: This is a Rapid Medical Exam performed in triage by Brittni Fay PA-C. Full HPI, ROS and PE to be performed by primary ED provider. 79 yo M w/PMHx BPH, HTN, Colon CA, HLD, Hypothyroid, presenting to the ED sent in by PCP c/o suspected +Flu (x5 days - tested + on Alison), fever (Tmax 99), cough, SOB, diarrhea & weight loss. PE: NAD, nontoxic appearing, afebrile with steady gait, talking in complete sentences Plan: EKG, labs, CXR, viral testing Medical Decision Making Lab Data 08/05/25 10:26 08/05/25 10:26 Labs: Lab Results 08/05/25 08/05/25 Range/Units 10:24 10:26 WBC 4.7 L (4.8-10.8) X10*3/uL RBC 4.52 L (4.60-5.80) X10*6/uL Hgb 14.8 (14.0-18.0) g/dl Hct 43.3 (42.0-52.0) % MCV 95.8 (80.0-98.0) fL MCH 32.7 (27.0-33.0) pg MCHC 34.2 (31.0-36.0) g/dl RDW 12.7 (11.0-16.0) % Plt Count 167 D (160-400) X10*3/uL MPV 8.2 L (9.4-12.4) fL Immature Gran % (Auto) 0.2 (0.0-0.4) % Neut % (Auto) 63.6 (45-73) % Lymph % (Auto) 21.2 (20-40) % [place] % (Auto) 13.5 H (2-11) % Eos % (Auto) 1.1 (0-4) % Baso % (Auto) 0.4 (0-2) % Lymph # (Auto) 1.0 L (1.2-4.9) X10*3/uL [place] # (Auto) 0.6 (0.1-1.2) X10*3/uL Eos # (Auto) 0.1 (0.0-0.4) X10*3/uL Baso # (Auto) 0.0 (0.0-0.2) X10*3/uL Abs Immat Gran (auto) 0.01 (0.00-0.03) X10*3/uL Absolute Neuts (auto) 3.0 (2.0-8.3) x10*3/uL Absolute Nucleated RBC 0.000 (0.0-0.012) X10*3/uL Nucleated RBC % (auto) 0.0 (0.0-0.2) /100WBC Sodium 142 (135-145) mmol/L Potassium 3.5 (3.3-5.1) mmol/L Chloride 107 (96-108) mmol/L Carbon Dioxide 30 H (22-29) mmol/L Anion Gap 9 L (12-20) BUN 28 H (9-16) mg/dL Creatinine 0.87 (0.5-1.4) mg/dL Estim Creat Clear Calc 61.1 Estimated GFR > 60 Random Glucose 104 (60-115) mg/dL Calcium 8.6 (8.4-10.2) mg/dL Magnesium 2.0 (1.6-2.6) mg/dL Total Bilirubin 0.4 (0.0-1.0) mg/dL Direct Bilirubin 0.2 (0.0-0.5) mg/dL AST 29 (5-37) U/L ALT 19 (0-40) U/L Alkaline Phosphatase 49 (39-117) U/L Total Protein 6.4 L (6.5-8.0) g/dL Albumin 3.6 (3.5-5.0) g/dL Influenza Type A (PCR) POSITIVE A (Negative) Influenza Type B (PCR) NEGATIVE (Negative) RSV RNA Qual (PCR) NEGATIVE (Negative) SARS-CoV-2 RNA (RT-PCR) NEGATIVE (Negative) Discharge Plan Discharge Clinical Impression: General medical exam Patient Disposition: Left W/O Completing Treatment Prescriptions: No Action lisinopril 20 mg tablet 20 mg PO DAILY Qty: 90 3RF cholecalciferol (vitamin D3) [Vitamin D3] 50 mcg (2,000 unit) Tablet 50 mcg PO DAILY aspirin [Adult Low Dose Aspirin] 81 mg tablet,delayed release (DR/EC) 81 mg PO DAILY amlodipine 5 mg tablet 5 mg PO DAILY Qty: 30 3RF levothyroxine 88 mcg tablet 88 mcg PO DAILY 90 Days Qty: 90 3RF Discharge Date/Time: 08/05/25 11:51
--- NOTE | 2025-08-05 10:11 | ECG_ITS ---
Test Reason : SOB Blood Pressure : */* mmHG Vent. Rate : 68 BPM Atrial Rate : 68 BPM P-R Int : 142 ms QRS Dur : 132 ms QT Int : 416 ms P-R-T Axes : 78 102 56 degrees QTcB Int : 442 ms Normal sinus rhythm Right bundle branch block Abnormal ECG When compared with ECG of 19-Jun-2025 13:56, No significant change was found Referred By: Brittni Fay Electronically Signed By: ANGEL OCONNELL
[2025-08-05 10:31] LABS: MANUAL DIFF FLAG NO
[2025-08-05 10:32] LABS: Hematocrit 43.3 % (42.0-52.0); Hemoglobin 14.8 g/dl (14.0-18.0); Imm Gran Abs Auto 0.01 X10*3/uL (0.00-0.03); Imm Gran Pct Auto 0.2 % (0.0-0.4); Lymphocytes Absolute Auto 1.0 X10*3/uL (1.2-4.9); Mean Corpuscular HGB Conc 34.2 g/dl (31.0-36.0); Mean Corpuscular Hemoglobin 32.7 pg (27.0-33.0); Mean Corpuscular Volume 95.8 fL (80.0-98.0); NRBC Abs Auto 0.000 X10*3/uL (0.0-0.012); NRBC Pct Auto 0.0 /100WBC (0.0-0.2); Platelet Count 167 X10*3/uL (160-400); Red Blood Count 4.52 X10*6/uL (4.60-5.80); White Blood Count 4.7 X10*3/uL (4.8-10.8)
[2025-08-05 10:50] LABS: Alanine Aminotransferase 19 U/L (0-40); Albumin Level 3.6 g/dL (3.5-5.0); Alkaline Phosphatase 49 U/L (39-117); Anion Gap 9 (12-20); Aspartate Amino Transferase 29 U/L (5-37); Blood Urea Nitrogen 28 mg/dL (9-16); Calcium 8.6 mg/dL (8.4-10.2); Carbon Dioxide 30 mmol/L (22-29); Chloride 107 mmol/L (96-108); Creatinine Clr Calc Pharmacy 61.1; Estimated Glomerular Filt Rate > 60; Magnesium 2.0 mg/dL (1.6-2.6); Potassium 3.5 mmol/L (3.3-5.1); Sodium 142 mmol/L (135-145); Total Protein 6.4 g/dL (6.5-8.0)
[2025-08-05 11:26] LABS: Resp Syncy Virus RNA Qual PCR NEGATIVE (Negative); SARS COV2 PCR INHOUSE NEGATIVE (Negative)
--- OUTSIDE RECORDS SUMMARY | 2025-08-05 13:01 | XMS_ITS | Clinical Summary ---
Author Organization [facility] Address [address] [place] [phone] Phone Care Team Providers Care Lightout Examiner Name Role Phone Addison Wilburn MD Primary Care Provider [phone] Allergies Active Allergy Reactions Criticality Noted Date [...] MEDEX SUPPLEMENT MEDICARE PART A & B Captify CROSS MEDEX SUPPLEMENT MEDICARE PART A & B [employer] CROSS MEDEX SUPPLEMENT MEDICARE PART A & B [employer] CROSS MEDEX SUPPLEMENT MEDICARE PART A & B [employer] MEDEX SUPPLEMENT MEDICARE PART A & B [employer] MEDEX SUPPLEMENT Care Teams Lightout Examiner Relationship Specialty Start Date End Date Addison Wilburn MD [address] [place] [phone] PCP - General Internal Medicine 04/04/25 Additional Source Comments The information contained in this document represents components of the legal health record. It is not the complete legal health record.[facility]
== END 2025-08-05 11:51 | disposition left against medical advice (07) ==
PROVIDERS: Physician Assistant; Emergency Provider Emergency Medicine; PCP Internal Medicine
DX: J10.1 Influenza due to other identified influenza virus with other respiratory manifestations (principal); R05.9 Cough, unspecified; R06.02 Shortness of breath; R19.7 Diarrhea, unspecified; E78.5 Hyperlipidemia, unspecified; I10 Essential (primary) hypertension; E03.9 Hypothyroidism, unspecified; Z85.038 Personal history of other malignant neoplasm of large intestine
CPT/HCPCS: 71046; 80048; 80076; 83735; 85025; 87637; 93005; 99283

== ENCOUNTER → 2025-08-05 10:11 | Outpatient (BNV) | payer MEDICARE, SELFPAY | PROVIDERS: Emergency Provider Emergency Medicine; PCP Internal Medicine; Visit Provider Internal Medicine | DX: I45.10 Unspecified right bundle-branch block (principal) | CPT/HCPCS: 93010 ==

== ENCOUNTER → 2025-08-05 10:11 | Outpatient (BNV) | payer MEDICARE, SELFPAY | PROVIDERS: PCP Internal Medicine; Visit Provider Radiology Diagnostic Radiology | DX: R05.9 Cough, unspecified (principal); R06.02 Shortness of breath | CPT/HCPCS: 71046 ==